=== PATIENT | male | born 1940 | race Native Hawaiian/Other Pacific Islander ===

== ENCOUNTER 2018-10-10 17:35 | Inpatient (IN) | payer MEDICARE ==
[2018-10-07 06:29] VITALS: BMI 23.6
--- NOTE | 2018-10-11 19:12 | CP.PCM.HP ---
History of Present Illness - History of Present Illness History of Present Illness: 77 year old [place] male with PMHx of Hypertension, Type 2 DM, Hyperlipidemia, Hx of Ischemic CVA, Hx of Hemorrhagic CVA was transferred from [facility] for admission to acute rehab today for physical therapy . All medical records were reviewed . Patient presented to [facility] ER 10/07 with 1 day history of slurred speech ,AMS and was diagnosed with acute left STUD SETTER ischemic stroke.No t-PA was given . Neurology was consulted and patient was initially started on ASa ,Plavix , statin and lovenox prophylactically During hospitalization he remained lethargic so Amantadine was started and EEG performed to rule out seizure disorder. PT was consulted and recommended physical therapy. Repeat CT without contrast today 10/11 reported as : Complex hemorrhagic conversion of involving left STUD SETTER infarct with mass-effect now facing posterior body and atrium of the left lateral ventricle and affectively trapping the left temporal horn though no hydrocephalus appreciated at this time. Minimal rightward midline shift with left cerebral peduncle encroached and basilar cisterns otherwise widely patent. 2. Small left frontal lobar infarct Patient now transferred to acute rehab. As per he is more awake and alert today , answering questions more fast but still has difficulty finding words.Has double vision . Patient denies any chest pain , SOB, abdominal pain , urinary sx or changes in bowel movements. Allergies ; NKDA PMH: HTN, DM , Dyslipidemia, CVA Medications: See med rec Surgery History; Denies Family history : Denies Social history : Denied tobacco, alcohol, or illicit drug use, , lives with ROS ; 10 point review of system negative except above Present on Admission - Present on Admission Any Indicators Present on Admission: No Review of Systems - Review of Systems All systems: reviewed and no additional remarkable complaints except Past Patient History - Infectious Disease Hx of Infectious Diseases: None - Tetanus Immunizations Tetanus Immunization: Unknown - Past Medical History & Family History Past Medical History?: Yes Past Family History: Reviewed and not pertinent - Past Social History Smoking Status: Never Smoked Chewing Tobacco Use: No Cigar Use: No Alcohol: None Home Situation {Lives}: With Family Domestic Violence: Negative - CARDIAC Hx Hypertension: Yes - PULMONARY Hx Respiratory Disorders: No - NEUROLOGICAL HX Cerebrovascular Accident: Yes (Hx of stroke 2 yrs ago) - HEENT Hx HEENT Problems: Yes Other/Comment: wear reading eyeglasses - RENAL Hx Chronic Kidney Disease: No - ENDOCRINE/METABOLIC Hx Diabetes Mellitus Type 2: Yes - HEMATOLOGICAL/ONCOLOGICAL Hx Blood Disorders: No - INTEGUMENTARY Hx Dermatological Problems: No - MUSCULOSKELETAL/RHEUMATOLOGICAL Hx Falls: No - GASTROINTESTINAL Hx Gastrointestinal Disorders: No - GENITOURINARY/GYNECOLOGICAL Hx Genitourinary Disorders: No - PSYCHIATRIC Hx Substance Use: No - SURGICAL HISTORY Hx Surgeries: No - ANESTHESIA Hx Anesthesia: No Meds Allergies/Adverse Reactions: Allergies Allergy/AdvReac Type Severity Reaction Status Date / Time No Known Allergies Allergy Verified 10/07/18 06:40 Physical Exam - Constitutional Appears: Non-toxic, No Acute Distress - Head Exam Head Exam: ATRAUMATIC, NORMOCEPHALIC - Eye Exam Eye Exam: EOMI, PERRL Pupil Exam: NORMAL ACCOMODATION - ENT Exam ENT Exam: Mucous Membranes Moist, Normal Exam - Neck Exam Neck exam: Positive for: Full Rom, Normal Inspection - Respiratory Exam Respiratory Exam: Clear to Auscultation Bilateral, NORMAL BREATHING PATTERN. absent: Rales, Rhonchi, Wheezes - Cardiovascular Exam Cardiovascular Exam: Irregular Rhythm. absent: JVD - GI/Abdominal Exam GI & Abdominal Exam: Normal Bowel Sounds, Soft. absent: Rebound, Rigid, Tenderness - Rectal Exam Rectal Exam: Deferred - Extremities Exam Extremities exam: Positive for: normal capillary refill, normal inspection, pedal pulses present. Negative for: calf tenderness, joint swelling, pedal edema - Back Exam Back exam: NORMAL INSPECTION - Neurological Exam Neurological exam: Alert Additional comments: oriented to self , knows his birthdate has difficulty finding words has double vision Power is intact all 4 extremities - Psychiatric Exam Psychiatric exam: Normal Affect - Skin Skin Exam: Dry, Warm Assessment & Plan - Assessment and Plan (Free Text) Assessment: 77 year old [place] male with PMHx of Hypertension, Type 2 DM, Hyperlipidemia, Hx of Ischemic CVA, Hx of Hemorrhagic CVA was transferred from [facility] for admission to acute rehab today for physical therapy .He was diagnosed initially with left STUD SETTER territory ischemic stroke . Repeat CT head today showed complex hemorrhagic conversion with mass effect and minimal rightward midline shift and left cerebelar peduncle enchroached Patient at present is awake and alert answering questions and following commands , has difficulty finding words. As per today is the best he has been since the stroke happened 1. Acute Left STUD SETTER ischemic stroke with complex hemorrhagic conversion and mass effect Discussed with Dr. Meyer. Will admit patient to acute rehab for therapy Admit to acute rehab Hold ASA, lovenox Repeat CT head without contrast in AM Neurology consult with Dr. Meyer physiatry consult resume Statin and BP meds on Amantadine 2. HTN resume Metoprolol,Losartan , HCTZ 3. DM type II Accuchecks, insulin coverage , diabetic diet Resumed Glipizide , Pioglitazone 4. Gout on Allopurinol 5. DVt prophylaxis SCD
[2018-10-11] MEDS: Insulin Lispro (humaLOG) 100 Units/ml Inj SC SCH (22:30)
[2018-10-12] MEDS: Insulin Lispro (humaLOG) 100 Units/ml Inj SC SCH ×4 (06:53→21:08)
[2018-10-12 08:37] LABS: BASO # 0.1 K/uL (0.0-0.2); BASO % 0.9 % (0.0-2.0); EOS # 0.1 K/uL (0.0-0.7); EOS % 1.3 % (0.0-4.0); HEMOGLOBIN 14.8 g/dL (12.0-18.0); LYMPH # 1.2 K/uL (1.0-4.3); LYMPH % 15.6 % (20.0-40.0); MEAN CELL VOLUME 90.9 fl (80.0-94.0); MEAN CORPUSCULAR HEMOGLOBIN 30.6 pg (27.0-31.0); MEAN CORPUSCULAR HGB CONC 33.7 g/dL (33.0-37.0); MONO # 0.9 K/uL (0.0-0.8); MONO % 11.9 % (0.0-10.0); NEUT # 5.6 K/uL (1.8-7.0); NEUT % 70.3 % (50.0-75.0); NRBC % 0.2 % (0.0-0.0); RBC 4.84 Mil/uL (4.40-5.90); RED CELL DISTRIBUTION WIDTH 13.9 % (11.5-14.5); WHITE BLOOD COUNT 7.9 K/uL (4.8-10.8)
[2018-10-12] MEDS: Pantoprazole 40 mg EC Tab PO SCH (08:50)
[2018-10-12] MEDS: GlipiZIDE 10 mg SR Tab PO SCH (08:51)
[2018-10-12] MEDS ORDERED: Metoprolol Succinate 25 mg XL Tab PO SCH (09:00)
[2018-10-12] MEDS ORDERED: Metoprolol Succinate 50 mg XL Tab PO SCH (09:00)
[2018-10-12 09:05] LABS: BLOOD UREA NITROGEN 23 mg/dl (9-20); CALCIUM 8.6 mg/dL (8.4-10.2); GFR NON-AFRICAN AMERICAN 54
--- NOTE | 2018-10-12 09:17 | CT ---
Date of service: 10/12/2018 PROCEDURE: CT HEAD WITHOUT CONTRAST. HISTORY: Left WRAPAROUND FACILITATOR stroke with hemorrhagic conversion COMPARISON: None available. TECHNIQUE: Axial computed tomography images were obtained through the head/brain without intravenous contrast. Radiation dose: Total exam DLP = 1059.53 mGy-cm. This CT exam was performed using one or more of the following dose reduction techniques: Automated exposure control, adjustment of the mA and/or kV according to patient size, and/or use of iterative reconstruction technique. FINDINGS: HEMORRHAGE: No intracranial hemorrhage. BRAIN: Limited hemorrhagic conversion is reiterated at the left WRAPAROUND FACILITATOR infarct with no increase in hemorrhagic component is appreciated. Related local edema persists, encroaching the left cerebral peduncle and effacing local sulci as well as the body and atrium of the left lateral ventricle. Left frontal horn remains small in volume with no hydrocephalus appreciated throughout. A minimal rightward midline shift of 2 mm is reiterated. Small lobar infarct at the left frontal lobe is reiterated as well as an even smaller infarct in the right frontal lobe anteriorly. Diffuse cerebral atrophy chronic microangiopathy are reiterated. Posterior fossa contents are stable and unremarkable. VENTRICLES: Unremarkable. No hydrocephalus. CALVARIUM: Unremarkable. PARANASAL SINUSES: Unremarkable as visualized. No significant inflammatory changes. MASTOID AIR CELLS: Unremarkable as visualized. No inflammatory changes. OTHER FINDINGS: None. IMPRESSION: Stable hemorrhagic conversion of left WRAPAROUND FACILITATOR infarct with local and minimal generalized mass effect stable. No interval hydrocephalus or new hemorrhage. There is been no expansion of hemorrhagic conversion beyond prior distribution. Continued clinical and CT visualized is recommended. Stable small bifrontal chronic infarcts as well as reiterated age related neuro degenerative changes.
[2018-10-12] MEDS ORDERED: Potassium Chloride 10 mEq ER Tab PO ONE (10:00)
--- NOTE | 2018-10-12 10:39 | CP.PCM.CON ---
History of Present Illness - History of Present Illness History of Present Illness: 77 year old male admitted for acute rehab with diagnosis of CVA with pmh of HTN, DM, Hyperlipidemia Review of Systems - EENT Eyes: Other Visual Disturbances - Musculoskeletal Musculoskeletal: Muscle Weakness Past Patient History - Infectious Disease Hx of Infectious Diseases: None - Tetanus Immunizations Tetanus Immunization: Unknown - Past Medical History & Family History Past Medical History?: Yes Past Family History: Reviewed and not pertinent - Past Social History Smoking Status: Never Smoked Chewing Tobacco Use: No Cigar Use: No Alcohol: None Home Situation {Lives}: With Family Domestic Violence: Negative - CARDIAC Hx Hypertension: Yes - PULMONARY Hx Respiratory Disorders: No - NEUROLOGICAL HX Cerebrovascular Accident: Yes (Hx of stroke 2 yrs ago) - HEENT Hx HEENT Problems: Yes Other/Comment: wear reading eyeglasses - RENAL Hx Chronic Kidney Disease: No - ENDOCRINE/METABOLIC Hx Diabetes Mellitus Type 2: Yes - HEMATOLOGICAL/ONCOLOGICAL Hx Blood Disorders: No - INTEGUMENTARY Hx Dermatological Problems: No - MUSCULOSKELETAL/RHEUMATOLOGICAL Hx Falls: No - GASTROINTESTINAL Hx Gastrointestinal Disorders: No - GENITOURINARY/GYNECOLOGICAL Hx Genitourinary Disorders: No - PSYCHIATRIC Hx Substance Use: No - SURGICAL HISTORY Hx Surgeries: No - ANESTHESIA Hx Anesthesia: No Meds Allergies/Adverse Reactions: Allergies Allergy/AdvReac Type Severity Reaction Status Date / Time No Known Allergies Allergy Verified 10/11/18 20:12 - Medications Medications: Current Medications Acetaminophen (Tylenol 325mg Tab) 650 mg PO Q6 PRN PRN Reason: Fever >100.4 F Allopurinol (Zyloprim) 100 mg PO DAILY [facility] Last Admin: 10/12/18 08:51 Dose: 100 mg Atorvastatin Calcium (Lipitor) 10 mg PO [facility] Last Admin: 10/11/18 22:30 Dose: 10 mg Docusate Sodium (Colace) 100 mg PO BID [facility] Last Admin: 10/12/18 08:49 Dose: 100 mg Glipizide (Glucotrol Xl) 10 mg PO DAILY [facility] Last Admin: 10/12/18 08:51 Dose: 10 mg Hydrochlorothiazide (Microzide) 12.5 mg PO DAILY [facility] Last Admin: 10/12/18 08:50 Dose: 12.5 mg Insulin Human Lispro (Humalog) 0 units SC [facility]; Protocol Last Admin: 10/12/18 06:53 Dose: Not Given Losartan Potassium (Cozaar) 25 mg PO DAILY [facility] Last Admin: 10/12/18 09:12 Dose: 25 mg Metoprolol Succinate (Toprol Xl) 50 mg PO DAILY [facility] Last Admin: 10/12/18 10:28 Dose: 50 mg Pantoprazole Sodium (Protonix Ec Tab) 40 mg PO DAILY [facility] Last Admin: 10/12/18 08:50 Dose: 40 mg Pioglitazone HCl (Actos) 15 mg PO DAILY [facility] Last Admin: 10/12/18 08:51 Dose: 15 mg Physical Exam - Constitutional Appears: Well - Head Exam Head Exam: ATRAUMATIC, NORMAL INSPECTION, NORMOCEPHALIC - Eye Exam Eye Exam: Normal appearance - ENT Exam ENT Exam: Mucous Membranes Moist - Neck Exam Neck exam: Positive for: Normal Inspection - Respiratory Exam Respiratory Exam: Clear to Auscultation Bilateral, NORMAL BREATHING PATTERN - Cardiovascular Exam Cardiovascular Exam: REGULAR RHYTHM - GI/Abdominal Exam GI & Abdominal Exam: Normal Bowel Sounds - Rectal Exam Rectal Exam: NORMAL INSPECTION - Exam Exam: NORMAL INSPECTION - Extremities Exam Extremities exam: Positive for: normal inspection - Back Exam Back exam: NORMAL INSPECTION Additional comments: muscle weakness - Neurological Exam Neurological exam: Alert - Skin Skin Exam: Normal Color Results - Vital Signs Recent Vital Signs: Last Vital Signs Temp 97.7 F 10/12/18 07:30 Pulse 70 10/12/18 10:28 Resp 18 10/12/18 07:30 BP 143/74 10/12/18 10:28 Pulse Ox 98 10/12/18 07:30 - Labs Result Diagrams: 10/12/18 06:20 10/12/18 06:20 Labs: Laboratory Results - last 24 hr 10/11/18 10/12/18 10/12/18 22:24 05:53 06:20 WBC 7.9 RBC 4.84 Hgb 14.8 Hct 44.0 MCV 90.9 MCH 30.6 MCHC 33.7 RDW 13.9 Plt Count 235 MPV 8.0 Neut % (Auto) 70.3 Lymph % (Auto) 15.6 L Harlan % (Auto) 11.9 H Eos % (Auto) 1.3 Baso % (Auto) 0.9 Neut # (Auto) 5.6 Lymph # (Auto) 1.2 Harlan # (Auto) 0.9 H Eos # (Auto) 0.1 Baso # (Auto) 0.1 Sodium Potassium Chloride Carbon Dioxide Anion Gap BUN Creatinine Est GFR ( Amer) Est GFR (Non-Af Amer) POC Glucose (mg/dL) 88 97 Random Glucose Calcium 10/12/18 06:20 WBC RBC Hgb Hct MCV MCH MCHC RDW Plt Count MPV Neut % (Auto) Lymph % (Auto) Harlan % (Auto) Eos % (Auto) Baso % (Auto) Neut # (Auto) Lymph # (Auto) Harlan # (Auto) Eos # (Auto) Baso # (Auto) Sodium 139 Potassium 3.4 L Chloride 102 Carbon Dioxide 26 Anion Gap 14 BUN 23 H Creatinine 1.3 Est GFR ( Amer) > 60 Est GFR (Non-Af Amer) 54 POC Glucose (mg/dL) Random Glucose 120 H Calcium 8.6 Assessment & Plan (1) CVA (cerebral vascular accident) Assessment and Plan: plan for physical, occupational, rec and speech therapy for cognitive eval. Dr Meyer to follow up with patient.For overall plan of care. Covering for Dr Rodriguez Status: Acute
--- NOTE | 2018-10-12 10:44 | PCM.OPOC ---
Physiatry Overall Plan of Care - Overall Plan of Care Estimated Length of Stay in Weeks: 2 Rehab Impairment: Mobility, Gait, Cognition, Balance, Coordination Etiologic Diagnosis: Cerebrovascular Accident Rehab/Medical Prognosis: Fair - Anticipated Interventions Physical Therapy:: Yes Occupational Therapy:: Yes Speech Therapy:: Yes Recreational Therapy:: Yes - Therapy Goals Bed Mobility: Independent Ambulation: Supervision Functional Positional Changes:: Independent - Discharge Plan Identification of Barriers to Discharge: Cognition Discharge Destination: Home
--- NOTE | 2018-10-12 15:13 | CP.PCM.CON ---
History of Present Illness - History of Present Illness History of Present Illness: Neurology Consultation Note; Mr. Richard is a 77-year-old man, who was referred to me by Dr. Watts, and whom I know from the inpatient side at [facility] after he was recently admitted for an ischemic stroke with some hemorrhagic conversion. He has a history of atrial fibrillation, but was not previously on anticoagulation. He has had three strokes in total. The previous strokes involved the left frontal (with hemorrhagic conversion), right parietal and now the left occipital/parietal lobe infarct. He has some neglect and right homonomous hemianopsia. He was previously on aspirin and plavix for secondary stroke pr evention, but after hemorrhagic conversion they were stopped. A repeat non- contrast CT scan of the head was done today and was stable without increasing edema. Clinically, the patient is improving. Review of Systems - Constitutional Constitutional: As Per HPI - EENT Eyes: absent: As Per HPI, Blind Spots, Blurred Vision, Change in Vision, Decreased Night Vision, Diplopia, Discharge, Dry Eye, Exophthalmos, Floaters, Irritation, Itchy Eyes, Loss of Peripheral Vision, Pain, Photophobia, Requires Corrective Lenses, Sees Flashes, Spots in Vision, Tunnel Vision, Other Visual Disturbances, Loss of Vision, Other Ears: absent: As Per HPI, Decreased Hearing, Ear Discharge, Ear Pain, Tinnitus, Abnormal Hearing, Disequilibrium, Dizziness, Other Nose/Mouth/Throat: absent: As Per HPI, Epistaxis, Nasal Congestion, Nasal Discharge, Nasal Obstruction, Nasal Trauma, Nose Pain, Post Nasal Drip, Sinus Pain, Sinus Pressure, Bleeding Gums, Change in Voice, Dental Pain, Dry Mouth, Dysphagia, Halitosis, Hoarsness, Lip Swelling, Mouth Lesions, Mouth Pain, Odynophagia, Sore Throat, Throat Swelling, Tongue Swelling, Facial Pain, Neck Pain, Neck Mass, Other - Cardiovascular Cardiovascular: absent: As Per HPI, Acrocyanosis, Chest Pain, Chest Pain at Rest, Chest Pain with Activity, Claudication, Diaphoresis, Dyspnea, Dyspnea on Exertion, Edema, Irregular Heart Rhythm, Pain Radiating to Arm/Neck/Jaw, Leg Edema, Leg Ulcers, Lightheadedness, Orthopnea, Palpitations, Paroxysmal Nocturnal Dyspnea, Pedal Edema, Radiating Pain, Rapid Heart Rate, Slow Heart Rate, Syncope, Other - Respiratory Respiratory: absent: As Per HPI, Cough, Dyspnea, Hemoptysis, Dyspnea on Exertion, Wheezing, Snoring, Stridor, Pain on Inspiration, Chest Congestion, Excessive Mucous Production, Change in Mucous Color, Pain with Coughing, Other - Gastrointestinal Gastrointestinal: absent: As Per HPI, Abdominal Pain, Belching, Bloating, Change in Bowel Habits, Change in Stool Character, Coffee Ground Emesis, Constipation, Cramping, Diarrhea, Dyspepsia, Dysphagia, Early Satiety, Excessive Flatus, Fecal Incontinence, Heartburn, Hematemesis, Hematochezia, Loose Stools, Melena, Nausea, Odynophagia, Temesmus, Vomiting, Other - Genitourinary Genitourinary: absent: As Per HPI, Change in Urinary Stream, Difficulty Urinati ng, Dysuria, Flank Pain, Hematuria, Pyuria, Nocturia, Urinary Incontinence, Urinary Frequency, Urinary Hesitance, Urinary Urgency, Voiding Freq/Small Amts, Freq UTI, Hx Renal/Bladder Calculi, Hx /Renal Surgery, Bladder Distension, Other - Musculoskeletal Musculoskeletal: absent: As Per HPI, Abnormal Gait, Arthralgias, Atrophy, Back Pain, Deformity, Joint Swelling, Limited Range of Motion, Loss of Height, Muscle Cramps, Muscle Weakness, Myalgias, Neck Pain, Numbness, Radiating Pain into Limb, Stiffness, Tingling, Other - Integumentary Integumentary: absent: As Per HPI, Acne, Alopecia, Bleeding Lesions, Change in H air, Change in Nails, Change in Pigmentation, Changing Lesions, Dry Skin, Erythema, Furuncle, Hirsutism, Lesions, New Lesions, Non-Healing Lesions, Photosensitivity, Pruritus, Rash, Skin Pain, Skin Ulcer, Sores, Striae, Swelling, Unusual Bruising, Wounds, Jaundice, Other - Neurological Neurological: absent: As Per HPI, Abnormal Gait, Abnormal Hearing, Abnormal Movements, Abnormal Speech, Behavioral Changes, Burning Sensations, Confusion, Convulsions, Disequilibrium, Dizziness, Numbness, Focal Weakness, Frequent Falls, Headaches, Lack of Coordination, Loss of Vision, Memory Loss, Paresthesias, Radicular Pain, Restless Legs, Sensory Deficit, Syncope, Tingling, Tremor, Vertigo, Weakness, Other Visual Disturbances, Other - Psychiatric Psychiatric: absent: As Per HPI, Abnormal Sleep Pattern, Anhedonia, Anxiety, Auditory Hallucinations, Behavioral Changes, Change in Appetite, Change in Libido, Confusion, Depression, Difficulty Concentrating, Hallucinations, Homicidal Ideation, Hopelessness, Irritability, Memory Loss, Mood Swings, Panic Attacks, Paranoia, Suicidal Ideation, Visual Hallucinations, Tactile Halluci nations, Other - Endocrine Endocrine: absent: As Per HPI, Change in Body Appearance, Change in Libido, Cold Intolorance, Deepening of Voice, Excessive Sweating, Fatigue, Flushing, Heat Intolorance, Increase in Ring/Shoe/Hat Size, Palpitations, Polydipsia, Polyp hagia, Polyuria, Other - Hematologic/Lymphatic Hematologic: absent: As Per HPI, Easy Bleeding, Easy Bruising, Lymphadenopathy, Other Past Patient History - Infectious Disease Hx of Infectious Diseases: None - Tetanus Immunizations Tetanus Immunization: Unknown - Past Medical History & Family History Past Medical History?: Yes Past Family History: Reviewed and not pertinent - Past Social History Smoking Status: Never Smoked Chewing Tobacco Use: No Cigar Use: No Alcohol: None Home Situation {Lives}: With Family Domestic Violence: Negative - CARDIAC Hx Hypertension: Yes - PULMONARY Hx Respiratory Disorders: No - NEUROLOGICAL HX Cerebrovascular Accident: Yes (Hx of stroke 2 yrs ago) - HEENT Hx HEENT Problems: Yes Other/Comment: wear reading eyeglasses - RENAL Hx Chronic Kidney Disease: No - ENDOCRINE/METABOLIC Hx Diabetes Mellitus Type 2: Yes - HEMATOLOGICAL/ONCOLOGICAL Hx Blood Disorders: No - INTEGUMENTARY Hx Dermatological Problems: No - MUSCULOSKELETAL/RHEUMATOLOGICAL Hx Falls: No - GASTROINTESTINAL Hx Gastrointestinal Disorders: No - GENITOURINARY/GYNECOLOGICAL Hx Genitourinary Disorders: No - PSYCHIATRIC Hx Substance Use: No - SURGICAL HISTORY Hx Surgeries: No - ANESTHESIA Hx Anesthesia: No Meds Allergies/Adverse Reactions: Allergies Allergy/AdvReac Type Severity Reaction Status Date / Time No Known Allergies Allergy Verified 10/11/18 20:12 - Medications Medications: Current Medications Acetaminophen (Tylenol 325mg Tab) 650 mg PO Q6 PRN PRN Reason: Fever >100.4 F Allopurinol (Zyloprim) 100 mg PO DAILY [facility] Last Admin: 10/12/18 08:51 Dose: 100 mg Atorvastatin Calcium (Lipitor) 10 mg PO HS [facility] Last Admin: 10/11/18 22:30 Dose: 10 mg Docusate Sodium (Colace) 100 mg PO BID [facility] Last Admin: 10/12/18 08:49 Dose: 100 mg Glipizide (Glucotrol Xl) 10 mg PO DAILY [facility] Last Admin: 10/12/18 08:51 Dose: 10 mg Hydrochlorothiazide (Microzide) 12.5 mg PO DAILY [facility] Last Admin: 10/12/18 08:50 Dose: 12.5 mg Insulin Human Lispro (Humalog) 0 units SC [facility]; Protocol Last Admin: 10/12/18 12:01 Dose: 1 unit Losartan Potassium (Cozaar) 25 mg PO DAILY [facility] Metoprolol Succinate (Toprol Xl) 50 mg PO DAILY [facility] Pantoprazole Sodium (Protonix Ec Tab) 40 mg PO DAILY [facility] Last Admin: 10/12/18 08:50 Dose: 40 mg Pioglitazone HCl (Actos) 15 mg PO DAILY [facility] Last Admin: 10/12/18 08:51 Dose: 15 mg Physical Exam - Constitutional Appears: Well - Head Exam Head Exam: ATRAUMATIC, NORMAL INSPECTION, NORMOCEPHALIC - Eye Exam Eye Exam: EOMI, Normal appearance, PERRL Pupil Exam: NORMAL ACCOMODATION, PERRL - ENT Exam ENT Exam: Mucous Membranes Moist, Normal Exam - Neck Exam Neck exam: Positive for: Normal Inspection - Respiratory Exam Respiratory Exam: Clear to Auscultation Bilateral, NORMAL BREATHING PATTERN - Cardiovascular Exam Cardiovascular Exam: REGULAR RHYTHM, +S1, +S2 - GI/Abdominal Exam GI & Abdominal Exam: Normal Bowel Sounds, Soft. absent: Tenderness - Extremities Exam Extremities exam: Positive for: normal inspection - Back Exam Back exam: NORMAL INSPECTION - Neurological Exam Neurological exam: Abnormal Gait, Altered, CN II-XII Intact, Reflexes Normal Additional comments: Right homonomous hemianopsia and neglect. Otherwise strength is symmetrical and sensation is intact. Reflexes are brisk on the right side with upgoing plantar response. NIHSS=4 - Psychiatric Exam Psychiatric exam: Normal Affect, Normal Mood - Skin Skin Exam: Dry, Intact, Normal Color, Warm Results - Vital Signs Recent Vital Signs: Last Vital Signs Temp 97.7 F 10/12/18 07:30 Pulse 60 10/12/18 13:00 Resp 18 10/12/18 07:30 BP 159/77 H 10/12/18 13:00 Pulse Ox 98 10/12/18 07:30 - Labs Result Diagrams: 10/12/18 06:20 10/12/18 06:20 Labs: Laboratory Results - last 24 hr 10/11/18 10/12/18 10/12/18 22:24 05:53 06:20 WBC 7.9 RBC 4.84 Hgb 14.8 Hct 44.0 MCV 90.9 MCH 30.6 MCHC 33.7 RDW 13.9 Plt Count 235 MPV 8.0 Neut % (Auto) 70.3 Lymph % (Auto) 15.6 L Parke % (Auto) 11.9 H Eos % (Auto) 1.3 Baso % (Auto) 0.9 Neut # (Auto) 5.6 Lymph # (Auto) 1.2 Parke # (Auto) 0.9 H Eos # (Auto) 0.1 Baso # (Auto) 0.1 Sodium Potassium Chloride Carbon Dioxide Anion Gap BUN Creatinine Est GFR ( Amer) Est GFR (Non-Af Amer) POC Glucose (mg/dL) 88 97 Random Glucose Calcium 10/12/18 10/12/18 06:20 11:36 WBC RBC Hgb Hct MCV MCH MCHC RDW Plt Count MPV Neut % (Auto) Lymph % (Auto) Parke % (Auto) Eos % (Auto) Baso % (Auto) Neut # (Auto) Lymph # (Auto) Parke # (Auto) Eos # (Auto) Baso # (Auto) Sodium 139 Potassium 3.4 L Chloride 102 Carbon Dioxide 26 Anion Gap 14 BUN 23 H Creatinine 1.3 Est GFR ( Amer) > 60 Est GFR (Non-Af Amer) 54 POC Glucose (mg/dL) 180 H Random Glucose 120 H Calcium 8.6 Assessment & Plan (1) CVA (cerebral vascular accident) Assessment and Plan: Since the scan is stable, and the patient is clinically improving, we can resume aspirin for secondary stroke prevention in the setting of multiple previous ischemic strokes and atrial fibrillation. Since the patient is bedbound, DVT prophylaxis is also recommended with either SCD or Lovenox. Will continue amantadine at 100 mg BID to improve level of consciousness and alertness. Neurology will follow along with the rehab team. Thank you. Status: Acute Priority: High
[2018-10-13] MEDS: Insulin Lispro (humaLOG) 100 Units/ml Inj SC SCH ×4 (06:30→21:02)
[2018-10-13] MEDS: GlipiZIDE 10 mg SR Tab PO SCH (08:20)
[2018-10-13] MEDS: Pantoprazole 40 mg EC Tab PO SCH (08:20)
[2018-10-13] MEDS: Metoprolol Succinate 50 mg XL Tab PO SCH (08:21)
--- NOTE | 2018-10-13 11:47 | CP.PCM.PN ---
Subjective - Date & Time of Evaluation Date of Evaluation: 10/13/18 Time of Evaluation: 10:30 - Subjective Subjective: Patient seen and examined bedside . Hemodynamically stable. Alert and awake , answering simple questions and following commands. Participating with PT Objective - Vital Signs/Intake and Output Vital Signs (last 24 hours): Temp Pulse Resp BP Pulse Ox 97.7 F 71 20 124/72 96 10/13/18 08:31 10/13/18 08:31 10/13/18 08:31 10/13/18 08:31 10/13/18 08:31 Intake and Output: 10/13/18 10/13/18 06:59 18:59 Intake Total 240 Output Total 400 Balance -160 - Medications Medications: Current Medications Acetaminophen (Tylenol 325mg Tab) 650 mg PO Q6 PRN PRN Reason: Fever >100.4 F Allopurinol (Zyloprim) 100 mg PO DAILY [facility] Last Admin: 10/13/18 08:20 Dose: 100 mg Amantadine HCl (Amantadine 100 Mg Cap) 100 mg PO BID [facility] Last Admin: 10/13/18 08:18 Dose: 100 mg Aspirin (Aspirin Chewable) 81 mg PO DAILY [facility] Last Admin: 10/13/18 08:18 Dose: 81 mg Atorvastatin Calcium (Lipitor) 10 mg PO HS [facility] Last Admin: 10/12/18 21:17 Dose: 10 mg Docusate Sodium (Colace) 100 mg PO BID [facility] Last Admin: 10/13/18 08:19 Dose: 100 mg Glipizide (Glucotrol Xl) 10 mg PO DAILY [facility] Last Admin: 10/13/18 08:20 Dose: 10 mg Hydrochlorothiazide (Microzide) 12.5 mg PO DAILY [facility] Last Admin: 10/13/18 08:20 Dose: 12.5 mg Insulin Human Lispro (Humalog) 0 units SC [facility]; Protocol Last Admin: 10/13/18 06:30 Dose: Not Given Losartan Potassium (Cozaar) 25 mg PO DAILY [facility] Last Admin: 10/13/18 08:19 Dose: 25 mg Metoprolol Succinate (Toprol Xl) 50 mg PO DAILY [facility] Last Admin: 10/13/18 08:21 Dose: 50 mg Pantoprazole Sodium (Protonix Ec Tab) 40 mg PO DAILY [facility] Last Admin: 10/13/18 08:20 Dose: 40 mg Pioglitazone HCl (Actos) 15 mg PO DAILY [facility] Last Admin: 10/13/18 08:18 Dose: 15 mg - Labs Labs: 10/12/18 06:20 10/12/18 06:20 - Constitutional Appears: Non-toxic, No Acute Distress - Head Exam Head Exam: ATRAUMATIC, NORMOCEPHALIC - Eye Exam Eye Exam: EOMI, PERRL Pupil Exam: NORMAL ACCOMODATION - ENT Exam ENT Exam: Mucous Membranes Moist, Normal Exam - Neck Exam Neck Exam: Normal Inspection - Respiratory Exam Respiratory Exam: Clear to Ausculation Bilateral, NORMAL BREATHING PATTERN. absent: Rales, Rhonchi, Wheezes - Cardiovascular Exam Cardiovascular Exam: Irregular Rhythm, +S1, +S2. absent: JVD - GI/Abdominal Exam GI & Abdominal Exam: Soft, Normal Bowel Sounds. absent: Distended, Guarding, Tenderness, Rebound - Rectal Exam Rectal Exam: Deferred - Extremities Exam Extremities Exam: Full ROM, Normal Capillary Refill, Normal Inspection. absent: Pedal Edema - Back Exam Back Exam: NORMAL INSPECTION - Neurological Exam Neurological Exam: Alert, Awake Neuro motor strength exam: Left Upper Extremity: 5, Right Upper Extremity: 5, Left Lower Extremity: 5, Right Lower Extremity: 5 Additional comments: blurry vision word finding difficulty - Psychiatric Exam Psychiatric exam: Flat Affect - Skin Skin Exam: Dry, Normal Color, Warm Assessment and Plan - Assessment and Plan (Free Text) Assessment: 77 year old Q[place] male with PMHx of Hypertension, Type 2 DM, Hyperlipidemia, Hx of Ischemic CVA, Hx of Hemorrhagic CVA was transferred from [facility] for admission to acute rehab today for physical therapy .He was diagnosed initially with left SITE LEADER territory ischemic stroke . CT 10/11 showed complex hemorrhagic conversion with mass effect and minimal rightward midline shift and left cerebelar peduncle enchroached . He was admitted in acute rehab for PT, ASA and lovenox discontinued and neuro consulted Repeat CT head showed stable hemorrhagic conversion 1. Acute Left SITE LEADER ischemic stroke with complex hemorrhagic conversion and mass effect Repeat CT head showed stable hemorrhagic conversion Neurology consult appreciated .Since patient is high risk for recurrent stroke started back on ASA Continue BP control Continue PT / OT/ speech therapy Continue Sttain and Amantadine 2.Afib rate controlled continue beta blockers 3. HTN controlled on Metoprolol,Losartan , HCTZ 4. DM type II controlled continue Accuchecks, insulin coverage , diabetic diet on Glipizide , Pioglitazone 5. Gout on Allopurinol stable 6. DVt prophylaxis SCD
[2018-10-14] MEDS: Insulin Lispro (humaLOG) 100 Units/ml Inj SC SCH ×4 (06:46→21:29)
[2018-10-14] MEDS: Metoprolol Succinate 50 mg XL Tab PO SCH (08:54)
[2018-10-14] MEDS: GlipiZIDE 10 mg SR Tab PO SCH (08:54)
[2018-10-14] MEDS: Pantoprazole 40 mg EC Tab PO SCH (08:54)
--- NOTE | 2018-10-14 11:46 | PCM.PSYTMC ---
Acute Rehab Team Conference - - Vital Signs: Vital Signs (Last 8 Hours): Vital Signs 10/14/18 10/14/18 10/14/18 07:31 07:39 08:48 Temperature 98.1 F 98.1 F Pulse Rate 69 69 63 Respiratory 20 20 Rate Blood Pressure 132/73 132/73 O2 Sat by Pulse 97 96 Oximetry 10/14/18 10/14/18 08:53 08:54 Temperature Pulse Rate 69 69 Respiratory Rate Blood Pressure 132/73 132/73 O2 Sat by Pulse Oximetry Pain: 0 - Precautions: Precautions: Fall Prevention - Medications/Other Issues: Comment: Patient is disoriented x3 intermittently and forgetful. Patient is sleepy all day. He complains of blurry vision. Patient requires constant cueing. - Consults: Comment: Dr. Rodriguez - physiatry. Dr. Meyer - neurology - Skin: Incision Site: N/A - Toileting: Toileting: Moderate Assistance - Bladder Management: Bladder Pattern: Normal Voiding Method: Urinal Bladder Management: Moderate Assistance - Transfers: Transfers: Moderate Assistance - ADL's: ADL's: Moderate Assistance - Pain Management: Other Intervention:: N/A - Patient/Family Teaching: Other Intervention:: Patient and his was given education about safety and fall precautions. Also s/s of stroke. Reinforcements needed. - Goals/Time Frame: Comment: Until next team conference or discharge date. - Provider: Registered Nurse:: Sandi Casas Physical Therapy - Bed Mobility Bed Mobility: Minimal Assistance - Transfers Wheelchair to Mat: Moderate Assistance Sit to Stand: Moderate Assistance - Ambulation Level of Assistance: Moderate Assistance Distance (ft.): 55 Assistive Devices: Rolling Walker - Stair Negotiation Stairs: Level of Assistance: Moderate Assistance Number of Stairs: 1 Handrails: Bilateral - Standing Balance Static Stand: Minimal Assistance - Pain Pain (assessed during therapy session): 0 - Insight/Carryover Insight/Carryover: Good - Patient/Family Education Comment: CVA recovery, safety, POC - Assessment/Plan Assessment: Mr. Richard presents with impaired BLE strength, sitting/standing balance, and endurance as well as noted R inattention resulting in decreased (I) with functional mobility skills. Pt currently requires min A for bed mobility, mod A for transfers, mod A for ambulating with RW, mod A with stair negotiation. Pt previously mod I/I. Pt will benefit from skilled PT interventions 5-6xs/week to address deficits, reduce fall risk, and maximzie functional independence. - Goals Timeframe: 3 weeks Goals: Sit < > supine with supervision. Functional transfers with supervision using RW. Pt will ambulate 200 ft with RW and supervision - Provider Physical Therapist:: Juliet Washburn License Number:: [id number] Occupational Therapy - Arousal/Attention/Orientation Level of Consciousness: Awake, Alert, Forgetful, Disoriented, Lethargic Patient Orientation: Person Assessment Comment: -severe visual deficits--visual acuity, double vision, R inattention. -impaired cognition: memory, attention(sustained/selective), arousal level, disorientation. -impaired endurance/activity tolerance. - impaired overall strength. -impaired balance--standing/sitting levels. --impaired carryover - ADL/IADL Self Feeding: Verbal Cues, Set-up Help, Minimal Assistance, Moderate Assistance Grooming: Verbal Cues, Set-up Help, Minimal Assistance Dressing-Upper Ext: Verbal Cues, Set-up Help, Minimal Assistance Dressing-Lower Ext: Verbal Cues, Set-up Help, Moderate Assistance Comment: Bathing: TBA - Sitting Balance Static Sitting: Supervision Dynamic Sitting: Reaches across midline, Reaches out of base of support, Reaches within base of support, Minimal Assistance Comment: constant verbal cues to engage, initiate and complete - Transfers Wheelchair to Bed Transfers: Verbal Cues, Set-up Help, Moderate Assistance Toilet Transfers: Verbal Cues, Set-up Help, Moderate Assistance Comment: -initaite with hand over hand, anchoring strategies, orientation to space - Wheelchair Management Level of Assistance: Minimal Assistance Distance (ft.): 15 - Upper Extremity Status Right Upper Extremity Comment: AROM is WFLs--strength 3+/5 as evidenced by purposeful functions; unable to complete formal MMT 2' cognitive deficits, inability to consistently follow commands Left Upper Extremity Comment: AROM is WFLS, strength 3+/5 as evidenced by purposeful functions; unable to complete formal MMT 2' cognitive deficits, inability to consistentlyfollow commands - Pain Pain (assessed during therapy session): 0 - Insight/Carryover Insight/Carryover: Poor - Patient/Family Education Comment: On 10-13-18: -initiated for adls, transfers/mobility training. - pt/pt's educated on plan of care, rehab/OT goals, tx plan. -w/c & bed ala rm for safety. -feeding strategies with setup/orientation. -further training needed to increase carryover - Assessment/Plan Assessment: Pt is a 77 year Spanish male with dx: acute CVA with impaired visual acuity, + double vision, ? R hemianosia. *Precautions: cardiac, fall precautions, severe impaired visual deficits, w/c & bed alarm. Pt seen bedside and rehab treatment area OT evaluation/tx on 10-13-18. *Please refer to OT evaluation for further details. Pt presents with the following impairments: - impaired visual acuity, + double vision, impaired visual scanning towards R. -+ R inattention. -impaired standing/sitting balance. -impaired cognition: memory, attention, problem-solving/judgement, insight, impaired arousal(bouts of lethargy), impaired ability to follow commands. -impaired activity tolerance/endurance. -impaired safety awareness---which greatly impact on functional performance of self care, transfers/mobility. Pt will continue to benefit from skilled Occupational Therapy to address above impairments to maximize function in self care, transfers & mobility uisng aadaptive/compensatory strategies, +caregiver ed. Pt responds well to anchoring strategies & color contrast(foreground/background). Pt will likely need 24 hour care 2' multiple complex impairment areas compounded. *Goal: Supervision/CS & verbal cues for self care, functional transfers/mobility with assistive device prn & setup - Goals Timeframe: 8 days Comment: *FEEDING: S/setup & verbal cues. *GROOMING: S/setup seated & verbal cues. *UPPER BODY DRESSING: Supervison/setup & verbal cues. *LOWER BODY DRESSING: min assist and verbal cues. *TOILETING: min assist and verbal cues. *TRANSFERS: min assist and verbal cues<->bed, commode, chair and other surfaces. *BED MOBILITY: CS/CG and verbal cues with use of bedrails. *W/C MANAGEMENT/PROPULSION: <->50 feet with CS and verbal cues - Provider Occupational Therapist:: Sandrine Fowler License Number: [id number] Speech Therapy - Consult Information Patient on Program: Yes Medical Diagnosis: CVA Treatment Diagnosis: severe cognitive-linguistic deficits - Assessment Expressive Language Impairment: Severe Receptive Language Impairment: Moderate Comment: mod-severe Problem Solving Impairment: Severe Memory Impairment: Severe - Plan Assessment: Bandar Gutierrez presents with severe cognitive-linguistic deficits characterized by impaired orientation, immediate and short-term recall, long-term recall of personal events/family, attention, insight, problem solving, reasoning, direction following, word retrieval, and ability to answer variet of yes/no and open-ended questions. Pt's reported that pt's cognitive and communication skills were WFL prior to this CVA. It should be noted that the pt presents with visual deficits which also impacted performance and is a large barrier to learning in addition to cognitive deficits. Pt would benefit from skilled ST for improved cognition and functional independence. Plan: Continue Speech/Language Therapy Frequency: 3-5 times per week Duration: 1 week Goals/Timeframe: Please see IE completed 10/13/18 for complete goals/POC Recommendations: ST 3-5x/week for improved cognition and independence - Provider Therapist: Stacie Sauceda License Number: [id number] Recreational Therapy - Participation Participation: Participates in Individual and/or Group Sessions - Attendance Attendance: 3-5 times per week - Activities Leisure Activities: Television - Socialization Level of Socialization: Requires 1:1 guidance to respond, Minimal initiation of interaction to request basic needs, Minimal or no response - Diversional Time Diversional Time: watching television, singing - Assessment Assessment/Plan: Pt and pt's were educated about the benefits and purpose of participating in recreation therapy sessions throughout stay on unit. Pt presented with decrease initiation and decrease command following throughout modified mitchel card task. Barriers to participation are visual deficits, decrease arousal, and decrease command following. Pt will benefit from participating in recreation therapy sessions throughout stay on unit. Problems Currently Limiting Participation: decrease command following, decrease initiation, decrease arousal level, decrease initiation, decrease color and number identification and recognition, decrease recall of prior conversations, double vision, visual deficits, decrease attention to task Goals and Time Frame: Pt will be encouraged to participate in 1:1 and group recreation therapy sessions 3-5x week to improve command following, direction following, attention to task, arousal level, and recalling facts on demand by date of discharge. - Provider Therapist: Liya Okeefe Nutrition - Current Diet Current Diet/Supplement/Feedings: Moderate consistent CHO heart healthy diet - Appetite Percent Meal Consumed: 50-74% - Assessment/Goals/Time Frame Assessments/Goals/Time Frame: To follow as per nutrition protocol - Provider Provider: Crissy Tomlinson Case Management - Psychosocial Assessment Support Systems: Lesley Richard ([facility])- [phone] Psychological Interventions/Needs: Patient is alert and oriented x1 with mild confusion and memory impairment. Discharge Concerns: Patient will likely require 24 hour supervision at a minimum and is having vision impairment. Patient/Family Meeting: CM met with patient and rehab team. Intervention/Goal/Outcome: 1. Goal- 24 supervision? 2. Plan- home with [facility] vs. [facility], pending progress- known to [facility] from previous admission 3. DME needs? Patient with commode, showe chair, and wheelchair at home 4. schedule caregiver training with . 5. emotional support 6. Tentative D/C date: 10/29/18 - Discharge Plan Discharge Plan: Subacute care - Provider Provider: Gloria Guillen License Number: [id number] Rehabilitation Plan - Treatment Plan Treatment Plan: Physical Therapy, Occupational Therapy, Speech, Dietary, Patient/Family Education - Recommendation Recommendation: Physical Therapy, Occupational Therapy, Speech, Dietary, Pa tient/Family Education - Discharge Plan Discharge to: Home (OCT 29 [place])
--- NOTE | 2018-10-14 12:12 | CP.PCM.PN ---
Subjective - Date & Time of Evaluation Date of Evaluation: 10/14/18 Time of Evaluation: 08:00 - Subjective Subjective: no acute complaints at present Objective - Vital Signs/Intake and Output Vital Signs (last 24 hours): Temp Pulse Resp BP Pulse Ox 98.1 F 69 20 132/73 96 10/14/18 07:39 10/14/18 08:54 10/14/18 07:39 10/14/18 08:54 10/14/18 08:48 - Medications Medications: Current Medications Acetaminophen (Tylenol 325mg Tab) 650 mg PO Q6 PRN PRN Reason: Fever >100.4 F Allopurinol (Zyloprim) 100 mg PO DAILY [facility] Last Admin: 10/14/18 08:54 Dose: 100 mg Amantadine HCl (Amantadine 100 Mg Cap) 100 mg PO BID [facility] Last Admin: 10/14/18 08:53 Dose: 100 mg Aspirin (Aspirin Chewable) 81 mg PO DAILY [facility] Last Admin: 10/14/18 08:53 Dose: 81 mg Atorvastatin Calcium (Lipitor) 10 mg PO [facility] Last Admin: 10/13/18 21:02 Dose: 10 mg Docusate Sodium (Colace) 100 mg PO BID [facility] Last Admin: 10/14/18 08:53 Dose: 100 mg Glipizide (Glucotrol Xl) 10 mg PO DAILY [facility] Last Admin: 10/14/18 08:54 Dose: 10 mg Hydrochlorothiazide (Microzide) 12.5 mg PO DAILY [facility] Last Admin: 10/14/18 08:54 Dose: 12.5 mg Insulin Human Lispro (Humalog) 0 units SC [facility]; Protocol Last Admin: 10/14/18 12:05 Dose: 2 unit Losartan Potassium (Cozaar) 25 mg PO DAILY [facility] Last Admin: 10/14/18 08:53 Dose: 25 mg Metoprolol Succinate (Toprol Xl) 50 mg PO DAILY [facility] Last Admin: 10/14/18 08:54 Dose: 50 mg Pantoprazole Sodium (Protonix Ec Tab) 40 mg PO DAILY [facility] Last Admin: 10/14/18 08:54 Dose: 40 mg Pioglitazone HCl (Actos) 15 mg PO DAILY [facility] Last Admin: 10/14/18 08:53 Dose: 15 mg - Labs Labs: 10/12/18 06:20 10/12/18 06:20 - Head Exam Head Exam: ATRAUMATIC, NORMAL INSPECTION, NORMOCEPHALIC - Eye Exam Eye Exam: EOMI, Normal appearance, PERRL Pupil Exam: NORMAL ACCOMODATION - ENT Exam ENT Exam: Mucous Membranes Moist, Normal Exam - Neck Exam Neck Exam: Full ROM, Normal Inspection - Respiratory Exam Respiratory Exam: NORMAL BREATHING PATTERN - Cardiovascular Exam Cardiovascular Exam: REGULAR RHYTHM - GI/Abdominal Exam GI & Abdominal Exam: Soft, Normal Bowel Sounds - Rectal Exam Rectal Exam: NORMAL INSPECTION - Exam External exam: NORMAL EXTERNAL EXAM - Extremities Exam Extremities Exam: Full ROM, Normal Capillary Refill - Back Exam Back Exam: NORMAL INSPECTION - Neurological Exam Neurological Exam: Alert, Awake Neuro motor strength exam: Left Upper Extremity: 3, Right Upper Extremity: 3, Left Lower Extremity: 3, Right Lower Extremity: 3 - Psychiatric Exam Psychiatric exam: Normal Affect, Normal Mood - Skin Skin Exam: Dry, Intact Assessment and Plan (1) CVA (cerebral vascular accident) Assessment & Plan: plan for physical, occupational, speech and rec therapy for Dc Oct 29 Status: Acute
--- NOTE | 2018-10-14 12:17 | CP.PCM.PN ---
Subjective - Date & Time of Evaluation Date of Evaluation: 10/12/18 Time of Evaluation: 16:00 - Subjective Subjective: no acute complaints Objective - Vital Signs/Intake and Output Vital Signs (last 24 hours): Temp Pulse Resp BP Pulse Ox 98.1 F 69 20 132/73 96 10/14/18 07:39 10/14/18 08:54 10/14/18 07:39 10/14/18 08:54 10/14/18 08:48 - Medications Medications: Current Medications Acetaminophen (Tylenol 325mg Tab) 650 mg PO Q6 PRN PRN Reason: Fever >100.4 F Allopurinol (Zyloprim) 100 mg PO DAILY [facility] Last Admin: 10/14/18 08:54 Dose: 100 mg Amantadine HCl (Amantadine 100 Mg Cap) 100 mg PO BID [facility] Last Admin: 10/14/18 08:53 Dose: 100 mg Aspirin (Aspirin Chewable) 81 mg PO DAILY [facility] Last Admin: 10/14/18 08:53 Dose: 81 mg Atorvastatin Calcium (Lipitor) 10 mg PO HS [facility] Last Admin: 10/13/18 21:02 Dose: 10 mg Docusate Sodium (Colace) 100 mg PO BID [facility] Last Admin: 10/14/18 08:53 Dose: 100 mg Glipizide (Glucotrol Xl) 10 mg PO DAILY [facility] Last Admin: 10/14/18 08:54 Dose: 10 mg Hydrochlorothiazide (Microzide) 12.5 mg PO DAILY [facility] Last Admin: 10/14/18 08:54 Dose: 12.5 mg Insulin Human Lispro (Humalog) 0 units SC [facility]; Protocol Last Admin: 10/14/18 12:05 Dose: 2 unit Losartan Potassium (Cozaar) 25 mg PO DAILY [facility] Last Admin: 10/14/18 08:53 Dose: 25 mg Metoprolol Succinate (Toprol Xl) 50 mg PO DAILY [facility] Last Admin: 10/14/18 08:54 Dose: 50 mg Pantoprazole Sodium (Protonix Ec Tab) 40 mg PO DAILY [facility] Last Admin: 10/14/18 08:54 Dose: 40 mg Pioglitazone HCl (Actos) 15 mg PO DAILY [facility] Last Admin: 10/14/18 08:53 Dose: 15 mg - Labs Labs: 10/12/18 06:20 10/12/18 06:20 - Head Exam Head Exam: ATRAUMATIC, NORMAL INSPECTION, NORMOCEPHALIC - Eye Exam Eye Exam: EOMI, Normal appearance, PERRL Pupil Exam: NORMAL ACCOMODATION - ENT Exam ENT Exam: Mucous Membranes Moist, Normal Exam - Neck Exam Neck Exam: Normal Inspection - Respiratory Exam Respiratory Exam: Clear to Ausculation Bilateral, NORMAL BREATHING PATTERN - Cardiovascular Exam Cardiovascular Exam: REGULAR RHYTHM - GI/Abdominal Exam GI & Abdominal Exam: Normal Bowel Sounds - Rectal Exam Rectal Exam: NORMAL INSPECTION - Exam External exam: NORMAL EXTERNAL EXAM - Extremities Exam Extremities Exam: Full ROM, Normal Capillary Refill - Back Exam Back Exam: NORMAL INSPECTION - Neurological Exam Neurological Exam: Alert, Awake Neuro motor strength exam: Left Upper Extremity: 3, Right Upper Extremity: 3, Left Lower Extremity: 3, Right Lower Extremity: 3 - Psychiatric Exam Psychiatric exam: Normal Affect, Normal Mood - Skin Skin Exam: Dry, Normal Color Assessment and Plan (1) CVA (cerebral vascular accident) Assessment & Plan: plan for pt, ot rec and St follow up with neurologist Status: Acute
[2018-10-15] MEDS: Insulin Lispro (humaLOG) 100 Units/ml Inj SC SCH ×4 (06:40→21:20)
--- NOTE | 2018-10-15 06:56 | CP.PCM.PN ---
Subjective - Date & Time of Evaluation Date of Evaluation: 10/15/18 Time of Evaluation: 06:56 - Subjective Subjective: Pt participating in PT well no complaints denies cp, sob, calf tenderness hd stable nad Objective - Vital Signs/Intake and Output Vital Signs (last 24 hours): Temp Pulse Resp BP Pulse Ox 97.4 F L 60 20 121/78 100 10/14/18 20:00 10/14/18 20:00 10/14/18 20:00 10/14/18 20:00 10/14/18 20:00 Intake and Output: Vitals Reviewed GEN: WDWN, alert, cooperative HEENT: NCAT, PERRL, EOMI HEART: RRR, +S1S2, NO MRG LUNG: CTAB, NO WRR ABD: soft, NT, ND, No HSM, No masses EXT: normal pedal pulses NEURO: awake, alert SKIN: warm, dry PSYCH: normal mood, normal affect - Medications Medications: Current Medications Acetaminophen (Tylenol 325mg Tab) 650 mg PO Q6 PRN PRN Reason: Fever >100.4 F Allopurinol (Zyloprim) 100 mg PO DAILY [facility] Last Admin: 10/14/18 08:54 Dose: 100 mg Amantadine HCl (Amantadine 100 Mg Cap) 100 mg PO BID [facility] Last Admin: 10/14/18 16:58 Dose: 100 mg Aspirin (Aspirin Chewable) 81 mg PO DAILY [facility] Last Admin: 10/14/18 08:53 Dose: 81 mg Atorvastatin Calcium (Lipitor) 10 mg PO [facility] Last Admin: 10/14/18 21:29 Dose: 10 mg Docusate Sodium (Colace) 100 mg PO BID [facility] Last Admin: 10/14/18 16:58 Dose: 100 mg Glipizide (Glucotrol Xl) 10 mg PO DAILY [facility] Last Admin: 10/14/18 08:54 Dose: 10 mg Hydrochlorothiazide (Microzide) 12.5 mg PO DAILY [facility] Last Admin: 10/14/18 08:54 Dose: 12.5 mg Insulin Human Lispro (Humalog) 0 units SC [facility]; Protocol Last Admin: 10/15/18 06:40 Dose: Not Given Losartan Potassium (Cozaar) 25 mg PO DAILY [facility] Last Admin: 10/14/18 08:53 Dose: 25 mg Metoprolol Succinate (Toprol Xl) 50 mg PO DAILY [facility] Last Admin: 10/14/18 08:54 Dose: 50 mg Pantoprazole Sodium (Protonix Ec Tab) 40 mg PO DAILY [facility] Last Admin: 10/14/18 08:54 Dose: 40 mg Pioglitazone HCl (Actos) 15 mg PO DAILY [facility] Last Admin: 10/14/18 08:53 Dose: 15 mg - Labs Labs: 10/12/18 06:20 10/12/18 06:20 Assessment and Plan - Assessment and Plan (Free Text) Plan: 77 year old Russian male with PMH HTN, Type 2 DM, Hyperlipidemia, Hx of Ischemic CVA, Hx of Hemorrhagic CVA was transferred from [facility] for admission to acute rehab today for physical therapy. He was diagnosed initially with left SUEDE CLEANER territory ischemic stroke. CT 10/11 showed complex hemorrhagic conversion with mass effect and minimal rightward midline shift and left cerebellar peduncle enchroached. He was admitted in acute rehab for PT, ASA, and lovenox discontinued and neuro consulted. Repeat CT head showed stable hemorrhagic conversion. 1. Acute Left SUEDE CLEANER ischemic stroke with complex hemorrhagic conversion and mass effect Repeat CT head showed stable hemorrhagic conversion Neurology consult appreciated. Since patient is high risk for recurrent stroke s tarted back on ASA Continue BP control Continue PT / OT/ speech therapy Continue Sttain and Amantadine 2.Afib rate controlled continue beta blockers 3. HTN controlled on Metoprolol, Losartan, HCTZ 4. DM type II controlled continue Accuchecks, insulin coverage, diabetic diet on Glipizide, Pioglitazone 5. Gout on Allopurinol stable 6. DVT prophylaxis SCD
[2018-10-15] MEDS: GlipiZIDE 10 mg SR Tab PO SCH (08:32)
[2018-10-15] MEDS: Metoprolol Succinate 50 mg XL Tab PO SCH (08:33)
[2018-10-15] MEDS: Pantoprazole 40 mg EC Tab PO SCH (08:33)
--- NOTE | 2018-10-15 13:09 | CP.PCM.PN ---
Subjective - Date & Time of Evaluation Date of Evaluation: 10/15/18 Time of Evaluation: 11:10 - Subjective Subjective: no acute complaints at present Objective - Vital Signs/Intake and Output Vital Signs (last 24 hours): Temp Pulse Resp BP Pulse Ox 97.7 F 65 18 144/85 96 10/15/18 09:25 10/15/18 09:25 10/15/18 09:25 10/15/18 09:25 10/15/18 09:25 - Medications Medications: Current Medications Acetaminophen (Tylenol 325mg Tab) 650 mg PO Q6 PRN PRN Reason: Fever >100.4 F Allopurinol (Zyloprim) 100 mg PO DAILY [facility] Last Admin: 10/15/18 08:33 Dose: 100 mg Amantadine HCl (Amantadine 100 Mg Cap) 100 mg PO BID [facility] Last Admin: 10/15/18 08:29 Dose: 100 mg Aspirin (Aspirin Chewable) 81 mg PO DAILY [facility] Last Admin: 10/15/18 08:29 Dose: 81 mg Atorvastatin Calcium (Lipitor) 10 mg PO [facility] Last Admin: 10/14/18 21:29 Dose: 10 mg Docusate Sodium (Colace) 100 mg PO BID [facility] Last Admin: 10/15/18 08:29 Dose: 100 mg Glipizide (Glucotrol Xl) 10 mg PO DAILY [facility] Last Admin: 10/15/18 08:32 Dose: 10 mg Hydrochlorothiazide (Microzide) 12.5 mg PO DAILY [facility] Last Admin: 10/15/18 08:33 Dose: 12.5 mg Insulin Human Lispro (Humalog) 0 units SC [facility]; Protocol Last Admin: 10/15/18 12:53 Dose: 2 unit Lactulose (Enulose) 20 gm PO DAILY PRN PRN Reason: Constipation Losartan Potassium (Cozaar) 25 mg PO DAILY [facility] Last Admin: 10/15/18 08:32 Dose: 25 mg Metoprolol Succinate (Toprol Xl) 50 mg PO DAILY [facility] Last Admin: 10/15/18 08:33 Dose: 50 mg Pantoprazole Sodium (Protonix Ec Tab) 40 mg PO DAILY [facility] Last Admin: 10/15/18 08:33 Dose: 40 mg Pioglitazone HCl (Actos) 15 mg PO DAILY [facility] Last Admin: 10/15/18 08:29 Dose: 15 mg - Labs Labs: 10/12/18 06:20 10/12/18 06:20 - Head Exam Head Exam: ATRAUMATIC, NORMAL INSPECTION, NORMOCEPHALIC - Eye Exam Eye Exam: EOMI, Normal appearance, PERRL Pupil Exam: NORMAL ACCOMODATION - ENT Exam ENT Exam: Mucous Membranes Moist, Normal Exam - Neck Exam Neck Exam: Full ROM, Normal Inspection - Respiratory Exam Respiratory Exam: NORMAL BREATHING PATTERN - Cardiovascular Exam Cardiovascular Exam: REGULAR RHYTHM - GI/Abdominal Exam GI & Abdominal Exam: Soft - Rectal Exam Rectal Exam: NORMAL INSPECTION - Exam External exam: NORMAL EXTERNAL EXAM - Extremities Exam Extremities Exam: Full ROM, Normal Capillary Refill - Back Exam Back Exam: NORMAL INSPECTION - Neurological Exam Neurological Exam: Alert Neuro motor strength exam: Left Upper Extremity: 3, Right Upper Extremity: 3, Left Lower Extremity: 3, Right Lower Extremity: 3 - Psychiatric Exam Psychiatric exam: Normal Affect, Normal Mood - Skin Skin Exam: Normal Color Assessment and Plan (1) CVA (cerebral vascular accident) Assessment & Plan: plan for pt, ot rec and st covering for Dr wilkerson subacute after acute may be needed Status: Acute
[2018-10-16] MEDS: Insulin Lispro (humaLOG) 100 Units/ml Inj SC SCH ×4 (07:08→21:15)
[2018-10-16] MEDS: Pantoprazole 40 mg EC Tab PO SCH (09:25)
[2018-10-16] MEDS: GlipiZIDE 10 mg SR Tab PO SCH (09:25)
[2018-10-16] MEDS: Metoprolol Succinate 50 mg XL Tab PO SCH (09:26)
[2018-10-16] MEDS: CENTRUM SILVER MULTIVITAMIN PO SCH (17:47)
[2018-10-17] MEDS: Insulin Lispro (humaLOG) 100 Units/ml Inj SC SCH ×4 (07:06→21:11)
[2018-10-17] MEDS: GlipiZIDE 10 mg SR Tab PO SCH (08:16)
[2018-10-17] MEDS: CENTRUM SILVER MULTIVITAMIN PO SCH (08:16)
[2018-10-17] MEDS ORDERED: Enoxaparin 40 mg Syringe SC SCH (09:00)
[2018-10-17] MEDS: Pantoprazole 40 mg EC Tab PO SCH (10:00)
[2018-10-17] MEDS: Metoprolol Succinate 50 mg XL Tab PO SCH (10:00)
--- NOTE | 2018-10-17 18:59 | CP.PCM.PN ---
Subjective - Date & Time of Evaluation Date of Evaluation: 10/17/18 Time of Evaluation: 16:00 - Subjective Subjective: Patient seen and examined. Denied any complaint Objective - Vital Signs/Intake and Output Vital Signs (last 24 hours): Temp Pulse Resp BP Pulse Ox 98 F 88 20 120/80 98 10/17/18 09:00 10/17/18 10:00 10/17/18 09:00 10/17/18 10:00 10/17/18 09:00 - Medications Medications: Current Medications Acetaminophen (Tylenol 325mg Tab) 650 mg PO Q6 PRN PRN Reason: Fever >100.4 F Allopurinol (Zyloprim) 100 mg PO DAILY [facility] Last Admin: 10/17/18 08:16 Dose: 100 mg Amantadine HCl (Amantadine 100 Mg Cap) 100 mg PO BID [facility] Last Admin: 10/17/18 16:25 Dose: 100 mg Aspirin (Aspirin Chewable) 81 mg PO DAILY [facility] Last Admin: 10/17/18 08:15 Dose: 81 mg Atorvastatin Calcium (Lipitor) 10 mg PO HS [facility] Last Admin: 10/16/18 21:15 Dose: 10 mg Docusate Sodium (Colace) 100 mg PO BID [facility] Last Admin: 10/17/18 16:24 Dose: 100 mg Glipizide (Glucotrol Xl) 10 mg PO DAILY [facility] Last Admin: 10/17/18 08:16 Dose: 10 mg Home Med (Patient's Own Medication) 1 unit PO DAILY [facility] Last Admin: 10/17/18 08:16 Dose: 1 unit Hydrochlorothiazide (Microzide) 12.5 mg PO DAILY [facility] Last Admin: 10/17/18 10:00 Dose: 12.5 mg Insulin Human Lispro (Humalog) 0 units SC [facility]; Protocol Last Admin: 10/17/18 16:25 Dose: 1 unit Lactulose (Enulose) 20 gm PO DAILY PRN PRN Reason: Constipation Losartan Potassium (Cozaar) 25 mg PO DAILY [facility] Last Admin: 10/17/18 08:16 Dose: 25 mg Metoprolol Succinate (Toprol Xl) 50 mg PO DAILY [facility] Last Admin: 10/17/18 10:00 Dose: 50 mg Pantoprazole Sodium (Protonix Ec Tab) 40 mg PO DAILY [facility] Last Admin: 10/17/18 10:00 Dose: 40 mg Pioglitazone HCl (Actos) 15 mg PO DAILY [facility] Last Admin: 10/17/18 08:17 Dose: 15 mg - Labs Labs: 10/12/18 06:20 10/12/18 06:20 - Constitutional Appears: No Acute Distress - Head Exam Head Exam: ATRAUMATIC - Eye Exam Eye Exam: absent: Scleral icterus - ENT Exam ENT Exam: Mucous Membranes Moist - Neck Exam Neck Exam: absent: Meningismus - Respiratory Exam Respiratory Exam: absent: Rales, Rhonchi, Wheezes, Respiratory Distress - Cardiovascular Exam Cardiovascular Exam: REGULAR RHYTHM, +S1, +S2 - GI/Abdominal Exam GI & Abdominal Exam: Soft. absent: Tenderness - Rectal Exam Rectal Exam: Deferred - Neurological Exam Neurological Exam: Alert, Oriented x3 - Psychiatric Exam Psychiatric exam: Normal Affect - Skin Skin Exam: Dry, Intact Assessment and Plan - Assessment and Plan (Free Text) Assessment: 77 yo male with history of HTN, DM2, HLD and CVA was transferred from [facility] for admission to acute rehab for physical therapy. CT 10/11 showed complex hemorrhagic conversion with mass effect and minimal rightward midline shift and left cerebellar peduncle enchroachment. 1. Acute Left WELFARE DIRECTOR ischemic stroke with complex hemorrhagic conversion and mass effect Continue PT / OT/ speech therapy Continue Statin and Amantadine 2.Afib rate controlled continue beta blockers 3. HTN controlled on Metoprolol, Losartan, HCTZ 4. DM type II controlled continue Accuchecks, insulin coverage, diabetic diet on Glipizide, Pioglitazone 5. Gout on Allopurinol stable
[2018-10-17] MEDS ORDERED: Patient's Own Med (Rosuvastatin Calcium [Crestor] 10 MG) PO SCH (22:00)
[2018-10-18] MEDS: Insulin Lispro (humaLOG) 100 Units/ml Inj SC SCH ×4 (06:42→21:06)
[2018-10-18 07:30] LABS: BLOOD UREA NITROGEN 26 mg/dl (9-20); CALCIUM 8.8 mg/dL (8.4-10.2); GFR NON-AFRICAN AMERICAN 54
[2018-10-18] MEDS: Metoprolol Succinate 50 mg XL Tab PO SCH (08:17)
[2018-10-18] MEDS: Pantoprazole 40 mg EC Tab PO SCH (08:18)
[2018-10-18] MEDS: GlipiZIDE 10 mg SR Tab PO SCH (08:19)
[2018-10-18] MEDS: CENTRUM SILVER MULTIVITAMIN PO SCH (08:19)
[2018-10-19] MEDS: Insulin Lispro (humaLOG) 100 Units/ml Inj SC SCH ×4 (07:00→21:01)
[2018-10-19] MEDS: CENTRUM SILVER MULTIVITAMIN PO SCH (09:24)
[2018-10-19] MEDS: Pantoprazole 40 mg EC Tab PO SCH (09:25)
[2018-10-19] MEDS: Metoprolol Succinate 50 mg XL Tab PO SCH (09:26)
[2018-10-19] MEDS: GlipiZIDE 10 mg SR Tab PO SCH (09:26)
--- NOTE | 2018-10-19 20:28 | CP.PCM.PN ---
Subjective - Date & Time of Evaluation Date of Evaluation: 10/17/18 Time of Evaluation: 18:00 - Subjective Subjective: no acute complaints at present Objective - Vital Signs/Intake and Output Vital Signs (last 24 hours): Temp Pulse Resp BP Pulse Ox 98.1 F 67 19 128/67 98 10/19/18 09:55 10/19/18 09:55 10/19/18 09:55 10/19/18 09:55 10/19/18 09:55 - Medications Medications: Current Medications Acetaminophen (Tylenol 325mg Tab) 650 mg PO Q6 PRN PRN Reason: Fever >100.4 F Allopurinol (Zyloprim) 100 mg PO DAILY [facility] Last Admin: 10/19/18 09:24 Dose: 100 mg Amantadine HCl (Amantadine 100 Mg Cap) 100 mg PO BID [facility] Last Admin: 10/19/18 16:50 Dose: 100 mg Aspirin (Aspirin Chewable) 81 mg PO DAILY [facility] Last Admin: 10/19/18 09:25 Dose: 81 mg Atorvastatin Calcium (Lipitor) 10 mg PO HS [facility] Last Admin: 10/18/18 21:12 Dose: 10 mg Docusate Sodium (Colace) 100 mg PO BID [facility] Last Admin: 10/19/18 16:50 Dose: 100 mg Glipizide (Glucotrol Xl) 10 mg PO DAILY [facility] Last Admin: 10/19/18 09:26 Dose: 10 mg Home Med (Patient's Own Medication) 1 unit PO DAILY [facility] Last Admin: 10/19/18 09:24 Dose: 1 unit Hydrochlorothiazide (Microzide) 12.5 mg PO DAILY [facility] Last Admin: 10/19/18 09:25 Dose: 12.5 mg Insulin Human Lispro (Humalog) 0 units SC [facility]; Protocol Last Admin: 10/19/18 16:50 Dose: 1 unit Lactulose (Enulose) 20 gm PO DAILY PRN PRN Reason: Constipation Last Admin: 10/18/18 18:36 Dose: 20 gm Losartan Potassium (Cozaar) 25 mg PO DAILY [facility] Last Admin: 10/19/18 09:26 Dose: 25 mg Metoprolol Succinate (Toprol Xl) 50 mg PO DAILY [facility] Last Admin: 10/19/18 09:26 Dose: 50 mg Pantoprazole Sodium (Protonix Ec Tab) 40 mg PO DAILY [facility] Last Admin: 10/19/18 09:25 Dose: 40 mg Pioglitazone HCl (Actos) 15 mg PO DAILY [facility] Last Admin: 10/19/18 09:25 Dose: 15 mg - Labs Labs: 10/12/18 06:20 10/18/18 05:30 - Constitutional Appears: Well - Head Exam Head Exam: ATRAUMATIC, NORMAL INSPECTION, NORMOCEPHALIC - Eye Exam Eye Exam: Normal appearance Pupil Exam: NORMAL ACCOMODATION - ENT Exam ENT Exam: Mucous Membranes Moist, Normal Exam - Neck Exam Neck Exam: Normal Inspection - Respiratory Exam Respiratory Exam: Clear to Ausculation Bilateral, NORMAL BREATHING PATTERN - Cardiovascular Exam Cardiovascular Exam: REGULAR RHYTHM - GI/Abdominal Exam GI & Abdominal Exam: Soft, Normal Bowel Sounds - Rectal Exam Rectal Exam: NORMAL INSPECTION - Exam External exam: NORMAL EXTERNAL EXAM - Extremities Exam Extremities Exam: Full ROM, Normal Capillary Refill, Normal Inspection - Back Exam Back Exam: NORMAL INSPECTION - Neurological Exam Neurological Exam: Alert, Awake - Psychiatric Exam Psychiatric exam: Normal Affect, Normal Mood - Skin Skin Exam: Dry, Normal Color Assessment and Plan (1) CVA (cerebral vascular accident) Assessment & Plan: plan to continue with physical, occupational, rec and speech therapy program Status: Acute
[2018-10-20] MEDS: Insulin Lispro (humaLOG) 100 Units/ml Inj SC SCH ×4 (06:30→21:29)
[2018-10-20] MEDS: CENTRUM SILVER MULTIVITAMIN PO SCH (09:23)
[2018-10-20] MEDS: GlipiZIDE 10 mg SR Tab PO SCH (09:23)
[2018-10-20] MEDS: Metoprolol Succinate 50 mg XL Tab PO SCH (09:24)
[2018-10-20] MEDS: Pantoprazole 40 mg EC Tab PO SCH (09:24)
[2018-10-20] MEDS ORDERED: Alum-Mag Hydrox-Simethicone Susp (30 mL) PO PRN (15:34)
--- NOTE | 2018-10-20 15:44 | CP.PCM.PN ---
Subjective - Date & Time of Evaluation Date of Evaluation: 10/20/18 Time of Evaluation: 15:41 - Subjective Subjective: Patient seen in the room with his present who helped with translation. He is tired and needed prompting to be cooperative with manual motor testing He had full ROM, but could not provide significant resistance so roughly 3+/5 to 4-/5 no pain no sob/cp continue current care nursing discussed with neuro him being a little more groggy and they will be doing a repeat head CT if no acute change I will start Provigil Objective - Vital Signs/Intake and Output Vital Signs (last 24 hours): Temp Pulse Resp BP Pulse Ox 97.7 F 62 18 127/69 97 10/20/18 09:27 10/20/18 09:27 10/20/18 09:27 10/20/18 09:27 10/20/18 09:27 - Medications Medications: Current Medications Acetaminophen (Tylenol 325mg Tab) 650 mg PO Q6 PRN PRN Reason: Fever >100.4 F Al Hydrox/Mg Hydrox/Simethicone (Maalox Plus 30 Ml) 30 ml PO Q6 PRN PRN Reason: Indigestion / Heartburn Allopurinol (Zyloprim) 100 mg PO DAILY [facility] Last Admin: 10/20/18 09:24 Dose: 100 mg Amantadine HCl (Amantadine 100 Mg Cap) 100 mg PO BID [facility] Last Admin: 10/20/18 09:22 Dose: 100 mg Aspirin (Aspirin Chewable) 81 mg PO DAILY [facility] Last Admin: 10/20/18 09:22 Dose: 81 mg Atorvastatin Calcium (Lipitor) 10 mg PO HS [facility] Last Admin: 10/19/18 21:08 Dose: 10 mg Docusate Sodium (Colace) 100 mg PO BID [facility] Last Admin: 10/20/18 09:22 Dose: 100 mg Glipizide (Glucotrol Xl) 10 mg PO DAILY [facility] Last Admin: 10/20/18 09:23 Dose: 10 mg Home Med (Patient's Own Medication) 1 unit PO DAILY [facility] Last Admin: 10/20/18 09:23 Dose: 1 unit Hydrochlorothiazide (Microzide) 12.5 mg PO DAILY [facility] Last Admin: 10/20/18 09:23 Dose: 12.5 mg Insulin Human Lispro (Humalog) 0 units SC [facility]; Protocol Last Admin: 10/20/18 12:34 Dose: 1 unit Lactulose (Enulose) 20 gm PO DAILY PRN PRN Reason: Constipation Last Admin: 10/18/18 18:36 Dose: 20 gm Losartan Potassium (Cozaar) 25 mg PO DAILY [facility] Last Admin: 10/20/18 09:23 Dose: 25 mg Metoprolol Succinate (Toprol Xl) 50 mg PO DAILY [facility] Last Admin: 10/20/18 09:24 Dose: 50 mg Pantoprazole Sodium (Protonix Ec Tab) 40 mg PO DAILY [facility] Last Admin: 10/20/18 09:24 Dose: 40 mg Pioglitazone HCl (Actos) 15 mg PO DAILY [facility] Last Admin: 10/20/18 09:22 Dose: 15 mg - Labs Labs: 10/12/18 06:20 10/18/18 05:30
--- NOTE | 2018-10-20 17:01 | CT ---
Date of service: 10/20/2018 PROCEDURE: CT HEAD WITHOUT CONTRAST. HISTORY: lethargy COMPARISON: Noncontrast head CT 10/12/2018. TECHNIQUE: Axial computed tomography images were obtained through the head/brain without intravenous contrast. Radiation dose: Total exam DLP = 852.25 mGy-cm. This CT exam was performed using one or more of the following dose reduction techniques: Automated exposure control, adjustment of the mA and/or kV according to patient size, and/or use of iterative reconstruction technique. FINDINGS: HEMORRHAGE: Prior hemorrhagic conversion of left BOBBIN COIL WINDER infarct is again evident, however, there are areas of hyperdensity in the periphery which may indicate new interval hemorrhage and further clinical correlation is recommended. No significant interval change in mass effect is appreciated with minimal rightward midline shift again seen less than 1 cm and partial face of the left lateral ventricle reiterated as well as loss of local sulcation. BRAIN: Diffuse cerebral atrophy chronic microangiopathy are reiterated as well as small chronic lobar infarction left frontal lobe and minimally at the right frontal lobe anteriorly. Posterior fossa contents appear stable and unremarkable. VENTRICLES: Unremarkable. No hydrocephalus. CALVARIUM: Unremarkable. PARANASAL SINUSES: Unremarkable as visualized. No significant inflammatory changes. MASTOID AIR CELLS: Unremarkable as visualized. No inflammatory changes. OTHER FINDINGS: None. IMPRESSION: Prior site of hemorrhagic conversion at the left BOBBIN COIL WINDER ischemic infarct is suspicious for new interval hemorrhage at this time with no signal interval change in overall mass effect currently. Follow-up head CT advised. Stable age related neuro degenerative findings. Findings discussed with Nurse Thao Whipple, with written down and read back verification 10/20/2018 4:50 p.m..
--- NOTE | 2018-10-20 17:23 | CP.PCM.PN ---
Subjective - Date & Time of Evaluation Date of Evaluation: 10/20/18 Time of Evaluation: 16:00 - Subjective Subjective: Neurology Consultation Follow-Up Note: Mr. Richard was evaluated this afternoon by myself and Dr. Glover at bedside with present. Neuro team was called today to re-evaluate the patient for increase periods of lethargy. Per nursing staff, patient has episodes during the day where he is very sleepy and does not want to eat or participate with activities-- also confirms this. Mr. Richard is known to us from his recent admission to [facility], and we managed his recent CVA there. Patient presently denies any distress and has no complaints. Objective - Vital Signs/Intake and Output Vital Signs (last 24 hours): Temp Pulse Resp BP Pulse Ox 97.7 F 62 18 127/69 97 10/20/18 09:27 10/20/18 09:27 10/20/18 09:27 10/20/18 09:27 10/20/18 09:27 - Medications Medications: Current Medications Acetaminophen (Tylenol 325mg Tab) 650 mg PO Q6 PRN PRN Reason: Fever >100.4 F Al Hydrox/Mg Hydrox/Simethicone (Maalox Plus 30 Ml) 30 ml PO Q6 PRN PRN Reason: Indigestion / Heartburn Allopurinol (Zyloprim) 100 mg PO DAILY [facility] Last Admin: 10/20/18 09:24 Dose: 100 mg Amantadine HCl (Amantadine 100 Mg Cap) 100 mg PO BID [facility] Last Admin: 10/20/18 09:22 Dose: 100 mg Aspirin (Aspirin Chewable) 81 mg PO DAILY [facility] Last Admin: 10/20/18 09:22 Dose: 81 mg Atorvastatin Calcium (Lipitor) 10 mg PO HS [facility] Last Admin: 10/19/18 21:08 Dose: 10 mg Docusate Sodium (Colace) 100 mg PO BID [facility] Last Admin: 10/20/18 09:22 Dose: 100 mg Glipizide (Glucotrol Xl) 10 mg PO DAILY [facility] Last Admin: 10/20/18 09:23 Dose: 10 mg Home Med (Patient's Own Medication) 1 unit PO DAILY [facility] Last Admin: 10/20/18 09:23 Dose: 1 unit Hydrochlorothiazide (Microzide) 12.5 mg PO DAILY [facility] Last Admin: 10/20/18 09:23 Dose: 12.5 mg Insulin Human Lispro (Humalog) 0 units SC [facility]; Protocol Last Admin: 10/20/18 12:34 Dose: 1 unit Lactulose (Enulose) 20 gm PO DAILY PRN PRN Reason: Constipation Last Admin: 10/18/18 18:36 Dose: 20 gm Losartan Potassium (Cozaar) 25 mg PO DAILY [facility] Last Admin: 10/20/18 09:23 Dose: 25 mg Methylphenidate HCl (Ritalin) 2.5 mg PO DAILY [facility] Metoprolol Succinate (Toprol Xl) 50 mg PO DAILY [facility] Last Admin: 10/20/18 09:24 Dose: 50 mg Pantoprazole Sodium (Protonix Ec Tab) 40 mg PO DAILY [facility] Last Admin: 10/20/18 09:24 Dose: 40 mg Pioglitazone HCl (Actos) 15 mg PO DAILY [facility] Last Admin: 10/20/18 09:22 Dose: 15 mg - Labs Labs: 10/12/18 06:20 10/18/18 05:30 - Constitutional Appears: Well, Non-toxic, No Acute Distress - Head Exam Head Exam: ATRAUMATIC, NORMAL INSPECTION, NORMOCEPHALIC - Eye Exam Eye Exam: EOMI, Normal appearance Pupil Exam: PERRL - ENT Exam ENT Exam: Mucous Membranes Moist - Neck Exam Neck Exam: Full ROM - Respiratory Exam Respiratory Exam: NORMAL BREATHING PATTERN - Neurological Exam Neurological Exam: Alert, Awake, CN II-XII Intact, Reflexes Normal Additional comments: Periods of confusion and lethargy per nursing staff. During exam, patient answers questions appropriately and is more awake and alert compared to my last encounter with him at [facility]. Strength and sensation are intact and equal bilaterally. - Psychiatric Exam Psychiatric exam: Normal Affect, Normal Mood - Skin Skin Exam: Normal Color, Warm Assessment and Plan (1) CVA (cerebral vascular accident) Assessment & Plan: -CT Head without contrast ordered to rule out possible new stroke---will f/u with results once done. -Start Methylphenidate 2.5 mg po daily (start tomorrow morning) to increase activity during the daytime hours, as pt is very sleepy "all day" per his . -Overall, Mr. Richard is doing well. He seems to be progressing and his level of consciousness is improved compared to my last encounter with him at [facility]. -Please call neuro team with any acute changes in patient's condition or abnormal CT Head results. -We will continue to follow Mr. Richard throughout his stay in rehab. Patient seen with and case discussed with Dr. Glover. Thank you for allowing us to participate in this patient's care. Status: Acute
--- NOTE | 2018-10-20 20:22 | CP.PCM.PN ---
Subjective - Date & Time of Evaluation Date of Evaluation: 10/20/18 Time of Evaluation: 14:40 - Subjective Subjective: Patient seen and examined. Continue bring lethargic but otherwise without complaint Objective - Vital Signs/Intake and Output Vital Signs (last 24 hours): Temp Pulse Resp BP Pulse Ox 97.3 F L 65 18 147/72 97 10/20/18 17:36 10/20/18 17:36 10/20/18 17:36 10/20/18 17:36 10/20/18 17:36 - Medications Medications: Current Medications Acetaminophen (Tylenol 325mg Tab) 650 mg PO Q6 PRN PRN Reason: Fever >100.4 F Al Hydrox/Mg Hydrox/Simethicone (Maalox Plus 30 Ml) 30 ml PO Q6 PRN PRN Reason: Indigestion / Heartburn Allopurinol (Zyloprim) 100 mg PO DAILY [facility] Last Admin: 10/20/18 09:24 Dose: 100 mg Amantadine HCl (Amantadine 100 Mg Cap) 100 mg PO BID [facility] Last Admin: 10/20/18 17:22 Dose: 100 mg Atorvastatin Calcium (Lipitor) 10 mg PO HS [facility] Last Admin: 10/19/18 21:08 Dose: 10 mg Docusate Sodium (Colace) 100 mg PO BID [facility] Last Admin: 10/20/18 17:22 Dose: 100 mg Glipizide (Glucotrol Xl) 10 mg PO DAILY [facility] Last Admin: 10/20/18 09:23 Dose: 10 mg Home Med (Patient's Own Medication) 1 unit PO DAILY [facility] Last Admin: 10/20/18 09:23 Dose: 1 unit Hydrochlorothiazide (Microzide) 12.5 mg PO DAILY [facility] Last Admin: 10/20/18 09:23 Dose: 12.5 mg Insulin Human Lispro (Humalog) 0 units SC [facility]; Protocol Last Admin: 10/20/18 17:22 Dose: 1 unit Lactulose (Enulose) 20 gm PO DAILY PRN PRN Reason: Constipation Last Admin: 10/18/18 18:36 Dose: 20 gm Losartan Potassium (Cozaar) 25 mg PO DAILY [facility] Last Admin: 10/20/18 09:23 Dose: 25 mg Methylphenidate HCl (Ritalin) 2.5 mg PO DAILY [facility] Metoprolol Succinate (Toprol Xl) 50 mg PO DAILY [facility] Last Admin: 10/20/18 09:24 Dose: 50 mg Pantoprazole Sodium (Protonix Ec Tab) 40 mg PO DAILY [facility] Last Admin: 10/20/18 09:24 Dose: 40 mg Pioglitazone HCl (Actos) 15 mg PO DAILY [facility] Last Admin: 10/20/18 09:22 Dose: 15 mg - Labs Labs: 10/12/18 06:20 10/18/18 05:30 - Constitutional Appears: No Acute Distress - Head Exam Head Exam: ATRAUMATIC - Eye Exam Eye Exam: absent: Scleral icterus - ENT Exam ENT Exam: Mucous Membranes Moist - Neck Exam Neck Exam: absent: Meningismus - Respiratory Exam Respiratory Exam: absent: Rales, Rhonchi, Wheezes, Respiratory Distress - Cardiovascular Exam Cardiovascular Exam: REGULAR RHYTHM, +S1, +S2 - GI/Abdominal Exam GI & Abdominal Exam: Soft. absent: Tenderness - Rectal Exam Rectal Exam: Deferred - Neurological Exam Neurological Exam: Alert, Oriented x3 - Psychiatric Exam Psychiatric exam: Normal Affect - Skin Skin Exam: Dry, Intact Assessment and Plan - Assessment and Plan (Free Text) Assessment: 77 yo male with history of HTN, DM2, HLD and CVA was transferred from [facility] for admission to acute rehab for physical therapy. CT 10/11 showed complex hemorrhagic conversion with mass effect and minimal rightward midline shift and left cerebellar peduncle enchroachment. 1. Acute Left RE[employer] ischemic stroke with complex hemorrhagic conversion and mass effect Continue PT / OT/ speech therapy Continue Statin and Amantadine rpt CT scan: suspicious new hemorrhage will dc ASA 2.Afib rate controlled continue beta blockers 3. HTN controlled on Metoprolol, Losartan, HCTZ 4. DM type II controlled continue Accuchecks, insulin coverage, diabetic diet on Glipizide, Pioglitazone 5. Gout on Allopurinol stable
[2018-10-21] MEDS: Insulin Lispro (humaLOG) 100 Units/ml Inj SC SCH ×4 (07:24→21:38)
--- NOTE | 2018-10-21 07:51 | CP.PCM.CON ---
History of Present Illness - History of Present Illness History of Present Illness: Psychiatry consult note CC: S/p CVA; evaluate for depression HPI: 77 yo male w/ h/o HTN, DM, HLD, h/o CVAs, transferred from [facility] for acute rehabilitation. Patient has constricted affect, poverty of speech and answers questions minimally due to cognitive deficits. He denied feeling acutely depressed/anxious/AH/VH/SI/HI. Pt was asked if he wants treatment with antidepressants and he stated no. PMHx: HTN, DM, HLD, h/o CVAs ALL: NKDA SHx: Lives w/ , denies drugs/etoh/cig use Impression: 77 yo male w/ major neurocognitive impairment; patient denies acute depression/anxiety/psychosis/SI/HI. -No acute psychiatric medications indicated at this time -No acute inpatient psychiatric admission indicated Past Patient History - Infectious Disease Hx of Infectious Diseases: None - Tetanus Immunizations Tetanus Immunization: Unknown - Past Medical History & Family History Past Medical History?: Yes Past Family History: Reviewed and not pertinent - Past Social History Smoking Status: Never Smoked Chewing Tobacco Use: No Cigar Use: No Alcohol: None Home Situation {Lives}: With Family Domestic Violence: Negative - CARDIAC Hx Cardiac Disorders: Yes Hx Hypercholesterolemia: Yes Hx Hypertension: Yes - PULMONARY Hx Respiratory Disorders: No - NEUROLOGICAL HX Cerebrovascular Accident: Yes (~2 years ago as per pt's ) - HEENT Hx HEENT Problems: Yes Other/Comment: wear reading eyeglasses - RENAL Hx Chronic Kidney Disease: No - ENDOCRINE/METABOLIC Hx Diabetes Mellitus Type 2: Yes - HEMATOLOGICAL/ONCOLOGICAL Hx Blood Disorders: No - INTEGUMENTARY Hx Dermatological Problems: No - MUSCULOSKELETAL/RHEUMATOLOGICAL Hx Falls: No - GASTROINTESTINAL Hx Gastrointestinal Disorders: No - GENITOURINARY/GYNECOLOGICAL Hx Genitourinary Disorders: No - PSYCHIATRIC Hx Substance Use: No - SURGICAL HISTORY Hx Surgeries: No - ANESTHESIA Hx Anesthesia: No Meds Allergies/Adverse Reactions: Allergies Allergy/AdvReac Type Severity Reaction Status Date / Time No Known Allergies Allergy Verified 10/11/18 20:12 - Medications Medications: Current Medications Acetaminophen (Tylenol 325mg Tab) 650 mg PO Q6 PRN PRN Reason: Fever >100.4 F Al Hydrox/Mg Hydrox/Simethicone (Maalox Plus 30 Ml) 30 ml PO Q6 PRN PRN Reason: Indigestion / Heartburn Allopurinol (Zyloprim) 100 mg PO DAILY [facility] Last Admin: 10/20/18 09:24 Dose: 100 mg Amantadine HCl (Amantadine 100 Mg Cap) 100 mg PO BID [facility] Last Admin: 10/20/18 17:22 Dose: 100 mg Atorvastatin Calcium (Lipitor) 10 mg PO HS [facility] Last Admin: 10/20/18 21:28 Dose: 10 mg Docusate Sodium (Colace) 100 mg PO BID [facility] Last Admin: 10/20/18 17:22 Dose: 100 mg Glipizide (Glucotrol Xl) 10 mg PO DAILY [facility] Last Admin: 10/20/18 09:23 Dose: 10 mg Home Med (Patient's Own Medication) 1 unit PO DAILY [facility] Last Admin: 10/20/18 09:23 Dose: 1 unit Hydrochlorothiazide (Microzide) 12.5 mg PO DAILY [facility] Last Admin: 10/20/18 09:23 Dose: 12.5 mg Insulin Human Lispro (Humalog) 0 units SC [facility]; Protocol Last Admin: 10/21/18 07:24 Dose: Not Given Lactulose (Enulose) 20 gm PO DAILY PRN PRN Reason: Constipation Last Admin: 10/18/18 18:36 Dose: 20 gm Losartan Potassium (Cozaar) 25 mg PO DAILY [facility] Last Admin: 10/20/18 09:23 Dose: 25 mg Methylphenidate HCl (Ritalin) 2.5 mg PO DAILY [facility] Metoprolol Succinate (Toprol Xl) 50 mg PO DAILY [facility] Last Admin: 10/20/18 09:24 Dose: 50 mg Pantoprazole Sodium (Protonix Ec Tab) 40 mg PO DAILY [facility] Last Admin: 10/20/18 09:24 Dose: 40 mg Pioglitazone HCl (Actos) 15 mg PO DAILY [facility] Last Admin: 10/20/18 09:22 Dose: 15 mg Results - Vital Signs Recent Vital Signs: Last Vital Signs Temp 97.5 F L 10/21/18 07:37 Pulse 60 10/21/18 07:37 Resp 20 10/21/18 07:37 BP 143/83 10/21/18 07:37 Pulse Ox 100 10/21/18 07:37 - Labs Result Diagrams: 10/12/18 06:20 10/18/18 05:30 Labs: Laboratory Results - last 24 hr 10/20/18 10/20/18 10/20/18 12:04 16:57 21:23 POC Glucose (mg/dL) 172 H 193 H 83 10/21/18 06:26 POC Glucose (mg/dL) 115 H
[2018-10-21] MEDS: CENTRUM SILVER MULTIVITAMIN PO SCH (08:21)
[2018-10-21] MEDS: GlipiZIDE 10 mg SR Tab PO SCH (08:22)
[2018-10-21] MEDS: Metoprolol Succinate 50 mg XL Tab PO SCH (08:22)
[2018-10-21] MEDS: Pantoprazole 40 mg EC Tab PO SCH (08:22)
--- NOTE | 2018-10-21 13:03 | PCM.PSYTMC ---
Acute Rehab Team Conference - - Vital Signs: Vital Signs (Last 8 Hours): Vital Signs 10/21/18 10/21/18 10/21/18 07:37 08:21 11:43 Temperature 97.5 F L 97.5 F L Pulse Rate 60 60 60 Respiratory 20 20 Rate Blood Pressure 143/83 143/63 143/83 O2 Sat by Pulse 100 Oximetry Pain: 0 - Precautions: Precautions: Fall Prevention, Aspiration, Seizure - Medications/Other Issues: Comment: oriented x1 lethargic with flat affect seen and examine by psychiatry no orders patients needs a lot of verbal cues ct scan 10/20 with changes Neurologist aware ritalin ordered,also hospitalist aware - Consults: Comment: Dr Rodriguez,DR Meyer,Dr Aragon - Skin: Incision Site: N/A - Toileting: Toileting: Moderate Assistance - Bladder Management: Bladder Pattern: Normal Voiding Method: Urinal Bladder Management: Minimal Assistance - Transfers: Transfers: Minimal Assistance - ADL's: ADL's: Moderate Assistance - Pain Management: Other Intervention:: denies any pain - Patient/Family Teaching: Other Intervention:: safety fall aspiration precaution post stroke care - Goals/Time Frame: Comment: as per multidiciplinary plan of care - Provider: Registered Nurse:: Meli Garcia Physical Therapy - Bed Mobility Bed Mobility: Minimal Assistance - Transfers Wheelchair to Mat: Verbal Cues, Minimal Assistance Sit to Stand: Verbal Cues, Minimal Assistance - Ambulation Level of Assistance: Verbal Cues, Minimal Assistance Distance (ft.): 125 Assistive Devices: Rolling Walker - Stair Negotiation Stairs: Level of Assistance: Verbal Cues, Moderate Assistance Number of Stairs: 6 Handrails: Bilateral Stairs: Assistive Devices: Left Handrail, Right Handrail - Standing Balance Static Stand: Contact Guard Assist - Pain Pain (assessed during therapy session): 0 - Insight/Carryover Insight/Carryover: Poor - Patient/Family Education Comment: CVA recovery, safety, POC - Assessment/Plan Assessment: Pt participated in PT tx session focusing on BLE strengthening exercises, balance and endurance activities, and functional mobility training. Pt appears more lethargic with decreased motivation and initiation in session. RN aware. Pt requires min A for ambulating with RW, mod A for stair negotiation, Min A for transfers. Pt will continue to benefit from skilled PT interventions to address deficits, reduce fall risk, and maximize functional independence. Barriers to goal attainment: visual deficits, cognition, fatigue - Goals Timeframe: 2 weeks Goals: Sit < > supine with S. All functional transfers with S. Pt will ambulate 250 ft with RW and supervision. Ptwill ascend/descend flight of stairs with handrail and CGA - Provider Physical Therapist:: Juliet Washburn License Number:: [id number] Occupational Therapy - Arousal/Attention/Orientation Level of Consciousness: Awake, Alert, Forgetful, Confused Patient Orientation: Person, Place - ADL/IADL Grooming: Minimal Assistance, Moderate Assistance Bathing-Upper Ext: Moderate Assistance Bathing-Lower Ext: Maximum Assistance Dressing-Upper Ext: Moderate Assistance Dressing-Lower Ext: Maximum Assistance - Sitting Balance Static Sitting: Supervision Dynamic Sitting: Contact Guard Assist - Transfers Wheelchair to Bed Transfers: Minimal Assistance Toilet Transfers: Moderate Assistance Tub Transfers: Moderate Assistance - Wheelchair Management Level of Assistance: Minimal Assistance Distance (ft.): 75 - Upper Extremity Status Right Upper Extremity Comment: WFL. decreased coordination Left Upper Extremity Comment: WFL - Pain Pain (assessed during therapy session): 0 - Insight/Carryover Insight/Carryover: Poor - Patient/Family Education Comment: CVA recovery, therapy schedule , use of call camilo, safety awareness - Assessment/Plan Assessment: Pt is a 77 year [place] male with dx: acute CVA with impaired visual acuity, double vision, and R hemianosia. *Precautions: cardiac, fall precautions, severe impaired visual deficits, w/c & bed alarm. Pt presents with the following impairments: impaired visual acuity, double vision, impaired visual scanning towards R , R inattention, impaired standing/sitting balance, impaired cognition: memory, attention, problem-solving/judgement, insight, impaired arousal, impaired activity tolerance/endurance, impaired safety awarenesswhich greatly impact on functional performance of self care, transfers/mobility. Currently-pt requries mod A for ub ADLs, and max A for LB ADLs, transfers with min -mod A with continous verbal, tactile and visual cueing for intitiation/completion/termination of tasks. pt demoing increased lethargy during sessions RN made aware. recommend D/C to [facility] post IP rehab stay. - Goals Timeframe: 1 week - Provider Occupational Therapist:: Patricia Veliz License Number: [id number] Speech Therapy - Consult Information Patient on Program: Yes Medical Diagnosis: CVA Treatment Diagnosis: severe cognitive-linguistic deficits - Assessment Expressive Language Impairment: Severe Receptive Language Impairment: Moderate Comment: mod-severe Problem Solving Impairment: Severe Memory Impairment: Severe - Plan Assessment: Bandar Gutierrez presents with severe cognitive-linguistic deficits characterized by impaired orientation, immediate and short-term recall, long-term recall of personal events/family, attention, insight, problem solving, reasoning, direction following, word retrieval, and ability to answer variet of yes/no and open-ended questions. Pt's reported that pt's cognitive and communication skills were WFL prior to this CVA. It should be noted that the pt presents with visual deficits which also impacted performance and is a large barrier to learning in addition to cognitive deficits. Pt would benefit from skilled ST for improved cognition and functional independence. Plan: Continue Speech/Language Therapy Frequency: 3-5 times per week Duration: 1 week Goals/Timeframe: Please see IE completed 10/13/18 for complete goals/POC Recommendations: ST 3-5x/week for improved cognition and independence - Provider Therapist: Stacie Sauceda License Number: [id number] Recreational Therapy - Participation Participation: Participates in Individual and/or Group Sessions - Attendance Attendance: 3-5 times per week - Activities Leisure Activities: Television - Socialization Level of Socialization: Initiates/interacts with caregivers but not with peer - Diversional Time Diversional Time: watching television, singing - Assessment Assessment/Plan: Pt is agreeable to participate in recreation therapy sessions following encouragement. Pt has participated in modified mitchel card task and number recognition/identification tasks. Pt's barriers to participation is decrease arousal level, decrease initiation, decrease command following, and decrease visual awareness. All task items are placed on the L side of pt with max verbal cues to attend to the L side and to visually scan towards midline and R side. Pt able to recall 's name and date of . Unable to recall diagnosis, place, and current date. Pt requires max verbal cues to attend to task and for redirection. Pt's is supportive and was encouraged to continue singing with pt while in the room with him to improve memory recall and initiation. Pt will continue to benefit from recreation therapy sessions throughout stay on unit. Problems Currently Limiting Participation: decrease command following, decrease initiation, decrease arousal level, decrease initiation, decrease color and number identification and recognition, decrease recall of prior conversations, double vision, visual deficits, decrease attention to task Goals and Time Frame: Pt will be encouraged to participate in 1:1 and group recreation therapy sessions 3-5x week to improve command following, direction following, attention to task, arousal level, and recalling facts on demand by date of discharge. - Provider Therapist: Liya Okeefe Nutrition - Current Diet Current Diet/Supplement/Feedings: Moderate consistent CHO heart healthy diet - Appetite Percent Meal Consumed: 75-100% - Assessment/Goals/Time Frame Assessments/Goals/Time Frame: Pt at moderate nutritional risk. goals: 1. Pt to consume at least 75% of each meal.(met, continue). 2. Maintain blood glucose between 70-180.(partially met, continue). Follow-up due on 10/27/2018 - Provider Provider: Crissy Tomlinson Case Management - Psychosocial Assessment Support Systems: [employer]- Psychological Interventions/Needs: Patient fluctuates between AAO and lethargic on a day-to-day basis. Patient is alert with periods of disorientation. Discharge Concerns: Patient is still displaying significant cognitive impairments. Patient/Family Meeting: CM met with patient and rehab team. Intervention/Goal/Outcome: 1. Goal: Supervision 2. Plan: [facility] vs home with home health 3. caregiver training with 4. continued emotional support 5. DME needs 6. follow up appointments 7. Tentative discharge date: 10/29/18 - Discharge Plan Discharge Plan: Outpatient rehab - Provider Provider: Gloria Guillen License Number: [id number] Rehabilitation Plan - Treatment Plan Treatment Plan: Physical Therapy, Occupational Therapy, Speech, Dietary, Patient/Family Education - Discharge Plan Estimated Date of Discharge: 10/29/18 Discharge to: Subacute
--- NOTE | 2018-10-21 13:11 | CP.PCM.PN ---
Subjective - Date & Time of Evaluation Date of Evaluation: 10/21/18 Time of Evaluation: 13:10 - Subjective Subjective: Patient seen in the room with his present no pain imaging of head noted extension of bleed, but clearing cognitively today a little discussed with neuro and will change ritalin to provigil Objective - Vital Signs/Intake and Output Vital Signs (last 24 hours): Temp Pulse Resp BP Pulse Ox 97.5 F L 60 20 143/83 100 10/21/18 11:43 10/21/18 11:43 10/21/18 11:43 10/21/18 11:43 10/21/18 07:37 - Medications Medications: Current Medications Acetaminophen (Tylenol 325mg Tab) 650 mg PO Q6 PRN PRN Reason: Fever >100.4 F Al Hydrox/Mg Hydrox/Simethicone (Maalox Plus 30 Ml) 30 ml PO Q6 PRN PRN Reason: Indigestion / Heartburn Allopurinol (Zyloprim) 100 mg PO DAILY [facility] Last Admin: 10/21/18 08:22 Dose: 100 mg Amantadine HCl (Amantadine 100 Mg Cap) 100 mg PO BID [facility] Last Admin: 10/21/18 08:21 Dose: 100 mg Atorvastatin Calcium (Lipitor) 10 mg PO HS [facility] Last Admin: 10/20/18 21:28 Dose: 10 mg Docusate Sodium (Colace) 100 mg PO BID [facility] Last Admin: 10/21/18 08:21 Dose: 100 mg Glipizide (Glucotrol Xl) 10 mg PO DAILY [facility] Last Admin: 10/21/18 08:22 Dose: 10 mg Home Med (Patient's Own Medication) 1 unit PO DAILY [facility] Last Admin: 10/21/18 08:21 Dose: 1 unit Hydrochlorothiazide (Microzide) 12.5 mg PO DAILY [facility] Last Admin: 10/21/18 08:22 Dose: 12.5 mg Insulin Human Lispro (Humalog) 0 units SC [facility]; Protocol Last Admin: 10/21/18 12:00 Dose: 3 unit Lactulose (Enulose) 20 gm PO DAILY PRN PRN Reason: Constipation Last Admin: 10/18/18 18:36 Dose: 20 gm Losartan Potassium (Cozaar) 25 mg PO DAILY [facility] Last Admin: 10/21/18 08:21 Dose: 25 mg Methylphenidate HCl (Ritalin) 2.5 mg PO DAILY [facility] Last Admin: 10/21/18 08:22 Dose: 2.5 mg Metoprolol Succinate (Toprol Xl) 50 mg PO DAILY [facility] Last Admin: 10/21/18 08:22 Dose: 50 mg Pantoprazole Sodium (Protonix Ec Tab) 40 mg PO DAILY [facility] Last Admin: 10/21/18 08:22 Dose: 40 mg Pioglitazone HCl (Actos) 15 mg PO DAILY [facility] Last Admin: 10/21/18 08:21 Dose: 15 mg - Labs Labs: 10/12/18 06:20 10/18/18 05:30
[2018-10-22] MEDS: Insulin Lispro (humaLOG) 100 Units/ml Inj SC SCH ×4 (07:10→21:01)
[2018-10-22] MEDS: GlipiZIDE 10 mg SR Tab PO SCH (08:40)
[2018-10-22] MEDS: Metoprolol Succinate 50 mg XL Tab PO SCH (08:40)
[2018-10-22] MEDS: Pantoprazole 40 mg EC Tab PO SCH (08:40)
[2018-10-22] MEDS: CENTRUM SILVER MULTIVITAMIN PO SCH (08:41)
--- NOTE | 2018-10-22 14:30 | CP.PCM.PN ---
<Layla Donovan - Last Filed: 10/22/18 15:17> Subjective - Date & Time of Evaluation Date of Evaluation: 10/22/18 Time of Evaluation: 14:28 - Subjective Subjective: Neurology Consultation Follow-Up Note: Mr. Richard was evaluated on Saturday by myself and Dr. Rowland at bedside with present. We were called on Saturday to re-evaluate the patient for increase periods of lethargy and sleepiness. Per nursing staff, patient has episodes during the day where he is very sleepy and does not want to eat or participate with activities-- also confirmed this. Mr. Richard is known to us from his recent admission to [facility], and we managed his recent CVA there. Attempted to evaluate the patient today, however, he was participating in therapy during time of rounds. He was observed to be awake, alert, engaging wi th the therapist and moving extremities. admits to some slight improvement in patient's daytime sleepiness. He is for potential discharge to [facility] rehab per the on 10/29/18. Objective - Vital Signs/Intake and Output Vital Signs (last 24 hours): Temp Pulse Resp BP Pulse Ox 96.9 F L 67 21 131/86 99 10/22/18 08:22 10/22/18 08:40 10/22/18 08:22 10/22/18 08:40 10/22/18 08:22 - Medications Medications: Current Medications Acetaminophen (Tylenol 325mg Tab) 650 mg PO Q6 PRN PRN Reason: Fever >100.4 F Al Hydrox/Mg Hydrox/Simethicone (Maalox Plus 30 Ml) 30 ml PO Q6 PRN PRN Reason: Indigestion / Heartburn Allopurinol (Zyloprim) 100 mg PO DAILY [facility] Last Admin: 10/22/18 08:40 Dose: 100 mg Amantadine HCl (Amantadine 100 Mg Cap) 100 mg PO BID [facility] Last Admin: 10/22/18 08:37 Dose: 100 mg Atorvastatin Calcium (Lipitor) 10 mg PO HS [facility] Last Admin: 10/21/18 21:37 Dose: 10 mg Docusate Sodium (Colace) 100 mg PO BID [facility] Last Admin: 10/22/18 08:37 Dose: 100 mg Glipizide (Glucotrol Xl) 10 mg PO DAILY [facility] Last Admin: 10/22/18 08:40 Dose: 10 mg Home Med (Patient's Own Medication) 1 unit PO DAILY [facility] Last Admin: 10/22/18 08:41 Dose: 1 unit Hydrochlorothiazide (Microzide) 12.5 mg PO DAILY [facility] Last Admin: 10/22/18 08:40 Dose: 12.5 mg Insulin Human Lispro (Humalog) 0 units SC ACHS [facility]; Protocol Last Admin: 10/22/18 12:00 Dose: 1 unit Lactulose (Enulose) 20 gm PO DAILY PRN PRN Reason: Constipation Last Admin: 10/18/18 18:36 Dose: 20 gm Losartan Potassium (Cozaar) 25 mg PO DAILY [facility] Last Admin: 10/22/18 08:39 Dose: 25 mg Metoprolol Succinate (Toprol Xl) 50 mg PO DAILY [facility] Last Admin: 10/22/18 08:40 Dose: 50 mg Modafinil (Provigil) 200 mg PO DAILY [facility] Last Admin: 10/22/18 08:43 Dose: 200 mg Pantoprazole Sodium (Protonix Ec Tab) 40 mg PO DAILY [facility] Last Admin: 10/22/18 08:40 Dose: 40 mg Pioglitazone HCl (Actos) 15 mg PO DAILY [facility] Last Admin: 10/22/18 08:37 Dose: 15 mg - Labs Labs: 10/12/18 06:20 10/18/18 05:30 - Constitutional Appears: Well, Non-toxic, No Acute Distress - Head Exam Head Exam: ATRAUMATIC, NORMAL INSPECTION, NORMOCEPHALIC - Respiratory Exam Respiratory Exam: NORMAL BREATHING PATTERN - Extremities Exam Additional comments: noted to be moving all extremities during therapy. Unable to personally assess at this time. - Neurological Exam Neurological Exam: Alert, Awake - Skin Skin Exam: Normal Color - Additional Findings Additional findings: Patient was participating in therapy during time of rounds. Noted to be moving all extremities during therapy. Unable to personally assess at this time. 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 Follow-up head CT advised. Stable age related neuro degenerative findings. -Overall, Mr. Richard seems to be doing well. He seems to be progressing and his level of consciousness is improved compared to our encounters with him at [facility]. His is very involved in his care. He was observed participating in therapy and engaging with the therapist. -Continue Provigil. -May continue to hold aspirin per Dr. Rowland based on the repeat CT Head results. We may repeat the CT Head in a few days to re-eval or sooner if patient's condition worsens. -Continue PT/OT; notes reviewed. -Please call neuro team with any acute changes in patient's condition or abnormal CT Head results. -We will continue to follow Mr. Richard throughout his stay in rehab. Case discussed with Dr. Rowland. Thank you. Status: Acute <Krishna Rowland - Last Filed: 10/24/18 00:41> Objective - Vital Signs/Intake and Output Vital Signs (last 24 hours): Temp Pulse Resp BP Pulse Ox 97.3 F L 68 20 143/78 98 10/23/18 21:00 10/23/18 21:00 10/23/18 21:00 10/23/18 21:00 10/23/18 21:00 - Medications Medications: Current Medications Acetaminophen (Tylenol 325mg Tab) 650 mg PO Q6 PRN PRN Reason: Fever >100.4 F Al Hydrox/Mg Hydrox/Simethicone (Maalox Plus 30 Ml) 30 ml PO Q6 PRN PRN Reason: Indigestion / Heartburn Allopurinol (Zyloprim) 100 mg PO DAILY [facility] Last Admin: 10/23/18 08:28 Dose: 100 mg Amantadine HCl (Amantadine 100 Mg Cap) 100 mg PO BID [facility] Last Admin: 10/23/18 17:10 Dose: 100 mg Atorvastatin Calcium (Lipitor) 10 mg PO HS [facility] Last Admin: 10/23/18 21:14 Dose: 10 mg Carbidopa/Levodopa (Sinemet) 1 tab PO TID@0700,1200,1600 [facility] Last Admin: 10/23/18 15:03 Dose: 1 tab Docusate Sodium (Colace) 100 mg PO BID [facility] Last Admin: 10/23/18 17:10 Dose: 100 mg Glipizide (Glucotrol Xl) 10 mg PO DAILY [facility] Last Admin: 10/23/18 08:27 Dose: 10 mg Home Med (Patient's Own Medication) 1 unit PO DAILY [facility] Last Admin: 10/23/18 08:28 Dose: 1 unit Hydrochlorothiazide (Microzide) 12.5 mg PO DAILY [facility] Last Admin: 10/23/18 08:27 Dose: 12.5 mg Insulin Human Lispro (Humalog) 0 units SC [facility]; Protocol Last Admin: 10/23/18 21:14 Dose: Not Given Lactulose (Enulose) 20 gm PO DAILY PRN PRN Reason: Constipation Last Admin: 10/22/18 16:51 Dose: 20 gm Losartan Potassium (Cozaar) 25 mg PO DAILY [facility] Last Admin: 10/23/18 08:27 Dose: 25 mg Metoprolol Succinate (Toprol Xl) 50 mg PO DAILY [facility] Last Admin: 10/23/18 08:28 Dose: 50 mg Mirtazapine (Remeron) 7.5 mg PO HS [facility] Last Admin: 10/23/18 21:14 Dose: 7.5 mg Modafinil (Provigil) 200 mg PO DAILY [facility] Last Admin: 10/23/18 08:30 Dose: 200 mg Pantoprazole Sodium (Protonix Ec Tab) 40 mg PO DAILY [facility] Last Admin: 10/23/18 08:28 Dose: 40 mg Pioglitazone HCl (Actos) 15 mg PO DAILY [facility] Last Admin: 10/23/18 08:26 Dose: 15 mg - Labs Labs: 10/12/18 06:20 10/18/18 05:30 Assessment and Plan - Assessment and Plan (Free Text) Assessment: I agree with assessment and plan. Thank you DR. rowland
--- NOTE | 2018-10-22 15:17 | CP.PCM.PN ---
Subjective - Date & Time of Evaluation Date of Evaluation: 10/22/18 Time of Evaluation: 12:30 - Subjective Subjective: Patient seen and examined bedside. Lying in bed in NAD . Hemodynamically stable, afebrile[facility] No acute issues overnight. Objective - Vital Signs/Intake and Output Vital Signs (last 24 hours): Temp Pulse Resp BP Pulse Ox 96.9 F L 67 21 131/86 99 10/22/18 08:22 10/22/18 08:40 10/22/18 08:22 10/22/18 08:40 10/22/18 08:22 - Medications Medications: Current Medications Acetaminophen (Tylenol 325mg Tab) 650 mg PO Q6 PRN PRN Reason: Fever >100.4 F Al Hydrox/Mg Hydrox/Simethicone (Maalox Plus 30 Ml) 30 ml PO Q6 PRN PRN Reason: Indigestion / Heartburn Allopurinol (Zyloprim) 100 mg PO DAILY [facility] Last Admin: 10/22/18 08:40 Dose: 100 mg Amantadine HCl (Amantadine 100 Mg Cap) 100 mg PO BID [facility] Last Admin: 10/22/18 08:37 Dose: 100 mg Atorvastatin Calcium (Lipitor) 10 mg PO HS [facility] Last Admin: 10/21/18 21:37 Dose: 10 mg Docusate Sodium (Colace) 100 mg PO BID [facility] Last Admin: 10/22/18 08:37 Dose: 100 mg Glipizide (Glucotrol Xl) 10 mg PO DAILY [facility] Last Admin: 10/22/18 08:40 Dose: 10 mg Home Med (Patient's Own Medication) 1 unit PO DAILY [facility] Last Admin: 10/22/18 08:41 Dose: 1 unit Hydrochlorothiazide (Microzide) 12.5 mg PO DAILY [facility] Last Admin: 10/22/18 08:40 Dose: 12.5 mg Insulin Human Lispro (Humalog) 0 units SC [facility]; Protocol Last Admin: 10/22/18 12:00 Dose: 1 unit Lactulose (Enulose) 20 gm PO DAILY PRN PRN Reason: Constipation Last Admin: 10/18/18 18:36 Dose: 20 gm Losartan Potassium (Cozaar) 25 mg PO DAILY [facility] Last Admin: 10/22/18 08:39 Dose: 25 mg Metoprolol Succinate (Toprol Xl) 50 mg PO DAILY [facility] Last Admin: 10/22/18 08:40 Dose: 50 mg Modafinil (Provigil) 200 mg PO DAILY [facility] Last Admin: 10/22/18 08:43 Dose: 200 mg Pantoprazole Sodium (Protonix Ec Tab) 40 mg PO DAILY [facility] Last Admin: 10/22/18 08:40 Dose: 40 mg Pioglitazone HCl (Actos) 15 mg PO DAILY [facility] Last Admin: 10/22/18 08:37 Dose: 15 mg - Labs Labs: 10/12/18 06:20 10/18/18 05:30 - Constitutional Appears: Non-toxic, No Acute Distress - Head Exam Head Exam: ATRAUMATIC, NORMOCEPHALIC - Eye Exam Eye Exam: EOMI, PERRL Pupil Exam: NORMAL ACCOMODATION - ENT Exam ENT Exam: Normal Exam - Neck Exam Neck Exam: Full ROM, Normal Inspection - Respiratory Exam Respiratory Exam: Clear to Ausculation Bilateral, NORMAL BREATHING PATTERN. absent: Rales, Rhonchi, Wheezes - Cardiovascular Exam Cardiovascular Exam: REGULAR RHYTHM, RRR, +S1, +S2. absent: JVD - GI/Abdominal Exam GI & Abdominal Exam: Soft, Normal Bowel Sounds. absent: Distended, Guarding, Tenderness, Rebound - Rectal Exam Rectal Exam: Deferred - Extremities Exam Extremities Exam: Full ROM, Normal Capillary Refill, Normal Inspection. absent: Pedal Edema - Back Exam Back Exam: NORMAL INSPECTION - Neurological Exam Neurological Exam: Alert, Awake Additional comments: expressive aphasia slow to reaction and response - Psychiatric Exam Psychiatric exam: Flat Affect - Skin Skin Exam: Dry, Intact, Normal Color, Warm Assessment and Plan - Assessment and Plan (Free Text) Assessment: 77 yo male with history of HTN, DM2, HLD and CVA was transferred from [facility] for admission to acute rehab for physical therapy. CT 10/11 showed complex hemorrhagic conversion with mass effect and minimal rightward midline shift and left cerebellar peduncle enchroachment. 1. Acute Left TANK OFFICER ischemic stroke with complex hemorrhagic conversion and mass effect Continue PT / OT/ speech therapy Continue Statin ,Amantadine and Provigil Repeat CT scan showed suspicious new hemorrhage ASA discontinued Follow upw ith neurology 2.Afib rate controlled continue beta blockers 3. HTN controlled on Metoprolol, Losartan, HCTZ 4. DM type II controlled continue Accuchecks, insulin coverage, diabetic diet on Glipizide, Pioglitazone 5. Gout on Allopurinol stable
[2018-10-23] MEDS: Insulin Lispro (humaLOG) 100 Units/ml Inj SC SCH ×4 (06:37→21:14)
[2018-10-23] MEDS: GlipiZIDE 10 mg SR Tab PO SCH (08:27)
[2018-10-23] MEDS: Metoprolol Succinate 50 mg XL Tab PO SCH (08:28)
[2018-10-23] MEDS: CENTRUM SILVER MULTIVITAMIN PO SCH (08:28)
[2018-10-23] MEDS: Pantoprazole 40 mg EC Tab PO SCH (08:28)
--- NOTE | 2018-10-23 11:39 | CP.PCM.PCO ---
Physician Communication Note - Physician Communication Note Physician Communication Note: Start Remeron 7.5 mg PO HS
--- NOTE | 2018-10-23 15:13 | CT ---
Date of service: 10/23/2018 PROCEDURE: CT HEAD WITHOUT CONTRAST. HISTORY: stroke COMPARISON: Comparison is made to the previous study dated 10/20/2018 TECHNIQUE: Axial computed tomography images were obtained through the head/brain without intravenous contrast. Radiation dose: Total exam DLP = 942.54 mGy-cm. This CT exam was performed using one or more of the following dose reduction techniques: Automated exposure control, adjustment of the mA and/or kV according to patient size, and/or use of iterative reconstruction technique. FINDINGS: HEMORRHAGE: Again noted is heterogeneous intraparenchymal hemorrhage at the left parietal occipital lobe consistent with hemorrhagic conversion of left METAL FRAMER infarction. There is a interval mild increase in the size of the surrounding edema since the previous exam. Otherwise no significant interval change. BRAIN: There is mass effect on the occipital horn of the left lateral ventricle from the parenchymal hemorrhage and adjacent edema. There is a focal encephalomalacia at the left frontal lobe again noted suggestive of old infarct. Small focal encephalomalacia at the right cerebellum is also again noted. Volume loss and chronic microvascular white matter ischemic disease are again noted. VENTRICLES: Unremarkable. No hydrocephalus. CALVARIUM: Unremarkable. PARANASAL SINUSES: Unremarkable as visualized. No significant inflammatory changes. MASTOID AIR CELLS: Unremarkable as visualized. No inflammatory changes. OTHER FINDINGS: None. IMPRESSION: Interval mild increase in the size of the surrounding edema around the parenchymal hemorrhage/hemorrhagic conversion of left METAL FRAMER infarction. Otherwise no significant interval changes noted since the prior study. Stable parenchymal hemorrhage surrounding with edema at the posterior left parietal occipital lobe again noted. Foci of encephalomalacia at the left frontal lobe and right cerebellum.
--- NOTE | 2018-10-23 16:26 | CP.PCM.PN ---
<Layla Donovan - Last Filed: 10/23/18 16:28> Subjective - Date & Time of Evaluation Date of Evaluation: 10/23/18 Time of Evaluation: 16:00 - Subjective Subjective: Neurology Consultation Follow-Up Note: Mr. Richard was evaluated today during OT session. Per nursing staff, OT and pt's , he is more sleepy and drowsy than yesterday. Based on my previous encounters with Mr. Richard, he does have periods of drowsiness and lethargy intermittently, as well as periods of lucidness and clarity. He is presently being treated with Provigil and Sinemet was started today. Today he admits that he does not feel well. He complains of feeling tired and dizzy all day. Denies any headache, visual changes, chest pain, shortness of breath, nausea/vomiting. He had a repeat CT head this afternoon. Objective - Vital Signs/Intake and Output Vital Signs (last 24 hours): Temp Pulse Resp BP Pulse Ox 98 F 66 20 130/66 98 10/23/18 09:19 10/23/18 09:19 10/23/18 09:19 10/23/18 09:19 10/23/18 09:19 - Medications Medications: Current Medications Acetaminophen (Tylenol 325mg Tab) 650 mg PO Q6 PRN PRN Reason: Fever >100.4 F Al Hydrox/Mg Hydrox/Simethicone (Maalox Plus 30 Ml) 30 ml PO Q6 PRN PRN Reason: Indigestion / Heartburn Allopurinol (Zyloprim) 100 mg PO DAILY [facility] Last Admin: 10/23/18 08:28 Dose: 100 mg Amantadine HCl (Amantadine 100 Mg Cap) 100 mg PO BID [facility] Last Admin: 10/23/18 08:27 Dose: 100 mg Atorvastatin Calcium (Lipitor) 10 mg PO HS [facility] Last Admin: 10/22/18 21:01 Dose: 10 mg Carbidopa/Levodopa (Sinemet) 1 tab PO TID@0700,1200,1600 [facility] Last Admin: 10/23/18 15:03 Dose: 1 tab Docusate Sodium (Colace) 100 mg PO BID [facility] Last Admin: 10/23/18 08:27 Dose: 100 mg Glipizide (Glucotrol Xl) 10 mg PO DAILY [facility] Last Admin: 10/23/18 08:27 Dose: 10 mg Home Med (Patient's Own Medication) 1 unit PO DAILY [facility] Last Admin: 10/23/18 08:28 Dose: 1 unit Hydrochlorothiazide (Microzide) 12.5 mg PO DAILY [facility] Last Admin: 10/23/18 08:27 Dose: 12.5 mg Insulin Human Lispro (Humalog) 0 units SC ACHS [facility]; Protocol Last Admin: 10/23/18 11:58 Dose: 1 unit Lactulose (Enulose) 20 gm PO DAILY PRN PRN Reason: Constipation Last Admin: 10/22/18 16:51 Dose: 20 gm Losartan Potassium (Cozaar) 25 mg PO DAILY [facility] Last Admin: 10/23/18 08:27 Dose: 25 mg Metoprolol Succinate (Toprol Xl) 50 mg PO DAILY [facility] Last Admin: 10/23/18 08:28 Dose: 50 mg Mirtazapine (Remeron) 7.5 mg PO [facility] Modafinil (Provigil) 200 mg PO DAILY [facility] Last Admin: 10/23/18 08:30 Dose: 200 mg Pantoprazole Sodium (Protonix Ec Tab) 40 mg PO DAILY [facility] Last Admin: 10/23/18 08:28 Dose: 40 mg Pioglitazone HCl (Actos) 15 mg PO DAILY [facility] Last Admin: 10/23/18 08:26 Dose: 15 mg - Labs Labs: 10/12/18 06:20 10/18/18 05:30 - Constitutional Appears: Other (drowsy; limited 2/2 observed during OT session. ) - Head Exam Head Exam: ATRAUMATIC, NORMAL INSPECTION, NORMOCEPHALIC - Eye Exam Eye Exam: EOMI, Normal appearance - ENT Exam ENT Exam: Mucous Membranes Moist - Neck Exam Neck Exam: Full ROM - Respiratory Exam Respiratory Exam: NORMAL BREATHING PATTERN - Extremities Exam Additional comments: limited examine 2/2 observed pt during OT session. - Neurological Exam Neurological Exam: Abnormal Gait, Alert, Awake Additional comments: limited examine 2/2 observed pt during OT session. Pt is drowsy however he is answering all questions appropriately. Speech clear and fluid Moving extremities independently; + weakness BLE - Psychiatric Exam Additional comments: drowsy - Skin Skin Exam: Normal Color Assessment and Plan (1) CVA (cerebral vascular accident) Assessment & Plan: Imaging: -CT Head without contrast (10/23/18): Interval mild increase in the size of the surrounding edema around the parenchymal hemorrhage/hemorrhagic conversion of left ENVIRONMENTAL SOLUTIONS ENGINEER infarction. Otherwise no significant interval changes noted since the prior study. Stable parenchymal hemorrhage surrounding with edema at the post erior left parietal occipital lobe again noted. Foci of encephalomalacia at the left frontal lobe and right cerebellum. -CT Head without contrast (10/20/18): Prior site of hemorrhagic conversion at t he left ENVIRONMENTAL SOLUTIONS ENGINEER ischemic infarct is suspicious for new interval hemorrhage at this time with no signal interval change in overall mass effect currently. Follow-up head CT advised. Stable age related neuro degenerative findings. -Mr. Richard today was observed during his OT session. He is more drowsy than usual. -Discussed this with pt's and she also validates the drowsiness today more than usual, as does the OT. -Repeat CT Head reviewed with Dr. Rowland. -Sinemet ordered by Dr. Rowland this afternoon. -VEEG x24 hours ordered to be started tonight---r/o seizure activity 2/2 to recent left ENVIRONMENTAL SOLUTIONS ENGINEER infarct with hemorrhagic conversion. -Continue Provigil. -Continue to hold aspirin per Dr. Rowland based on the repeat CT Head results. -We will repeat CT Head without contrast in 2 days (ordered for 10/25/18). -Continue PT/OT; notes reviewed. -Please call neuro team with any acute changes in patient's condition if problems getting the VEEG to be started tonight. -We will continue to follow Mr. Richard throughout his stay in rehab. Case discussed with Dr. Rowland. Status: Acute <Randall Rowlandutami - Last Filed: 10/23/18 21:48> Objective - Vital Signs/Intake and Output Vital Signs (last 24 hours): Temp Pulse Resp BP Pulse Ox 97.3 F L 68 20 143/78 98 10/23/18 21:00 10/23/18 21:00 10/23/18 21:00 10/23/18 21:00 10/23/18 21:00 - Medications Medications: Current Medications Acetaminophen (Tylenol 325mg Tab) 650 mg PO Q6 PRN PRN Reason: Fever >100.4 F Al Hydrox/Mg Hydrox/Simethicone (Maalox Plus 30 Ml) 30 ml PO Q6 PRN PRN Reason: Indigestion / Heartburn Allopurinol (Zyloprim) 100 mg PO DAILY [facility] Last Admin: 10/23/18 08:28 Dose: 100 mg Amantadine HCl (Amantadine 100 Mg Cap) 100 mg PO BID [facility] Last Admin: 10/23/18 17:10 Dose: 100 mg Atorvastatin Calcium (Lipitor) 10 mg PO HS [facility] Last Admin: 10/23/18 21:14 Dose: 10 mg Carbidopa/Levodopa (Sinemet) 1 tab PO TID@0700,1200,1600 [facility] Last Admin: 10/23/18 15:03 Dose: 1 tab Docusate Sodium (Colace) 100 mg PO BID [facility] Last Admin: 10/23/18 17:10 Dose: 100 mg Glipizide (Glucotrol Xl) 10 mg PO DAILY [facility] Last Admin: 10/23/18 08:27 Dose: 10 mg Home Med (Patient's Own Medication) 1 unit PO DAILY [facility] Last Admin: 10/23/18 08:28 Dose: 1 unit Hydrochlorothiazide (Microzide) 12.5 mg PO DAILY [facility] Last Admin: 10/23/18 08:27 Dose: 12.5 mg Insulin Human Lispro (Humalog) 0 units SC [facility]; Protocol Last Admin: 10/23/18 21:14 Dose: Not Given Lactulose (Enulose) 20 gm PO DAILY PRN PRN Reason: Constipation Last Admin: 10/22/18 16:51 Dose: 20 gm Losartan Potassium (Cozaar) 25 mg PO DAILY [facility] Last Admin: 10/23/18 08:27 Dose: 25 mg Metoprolol Succinate (Toprol Xl) 50 mg PO DAILY [facility] Last Admin: 10/23/18 08:28 Dose: 50 mg Mirtazapine (Remeron) 7.5 mg PO HS [facility] Last Admin: 10/23/18 21:14 Dose: 7.5 mg Modafinil (Provigil) 200 mg PO DAILY [facility] Last Admin: 10/23/18 08:30 Dose: 200 mg Pantoprazole Sodium (Protonix Ec Tab) 40 mg PO DAILY [facility] Last Admin: 10/23/18 08:28 Dose: 40 mg Pioglitazone HCl (Actos) 15 mg PO DAILY [facility] Last Admin: 10/23/18 08:26 Dose: 15 mg - Labs Labs: 10/12/18 06:20 10/18/18 05:30 Assessment and Plan - Assessment and Plan (Free Text) Assessment: Agree with above assessment and plan. Patient is sleepier than usual but this may be seizures secondary to new interval hemorrhage. We will obtain Video EEg to assess further. In addition, we may start antiepileptic to cover for possible seizures. THank you Dr. rowland Neurology
--- NOTE | 2018-10-23 17:59 | CP.PCM.PN ---
Subjective - Date & Time of Evaluation Date of Evaluation: 10/23/18 Time of Evaluation: 17:58 - Subjective Subjective: Patient seen in the room and doing well NAD no abdominal pain alert and interactive continue current care Objective - Vital Signs/Intake and Output Vital Signs (last 24 hours): Temp Pulse Resp BP Pulse Ox 98 F 66 20 130/66 98 10/23/18 09:19 10/23/18 09:19 10/23/18 09:19 10/23/18 09:19 10/23/18 09:19 - Medications Medications: Current Medications Acetaminophen (Tylenol 325mg Tab) 650 mg PO Q6 PRN PRN Reason: Fever >100.4 F Al Hydrox/Mg Hydrox/Simethicone (Maalox Plus 30 Ml) 30 ml PO Q6 PRN PRN Reason: Indigestion / Heartburn Allopurinol (Zyloprim) 100 mg PO DAILY [facility] Last Admin: 10/23/18 08:28 Dose: 100 mg Amantadine HCl (Amantadine 100 Mg Cap) 100 mg PO BID [facility] Last Admin: 10/23/18 17:10 Dose: 100 mg Atorvastatin Calcium (Lipitor) 10 mg PO HS [facility] Last Admin: 10/22/18 21:01 Dose: 10 mg Carbidopa/Levodopa (Sinemet) 1 tab PO TID@0700,1200,1600 [facility] Last Admin: 10/23/18 15:03 Dose: 1 tab Docusate Sodium (Colace) 100 mg PO BID [facility] Last Admin: 10/23/18 17:10 Dose: 100 mg Glipizide (Glucotrol Xl) 10 mg PO DAILY [facility] Last Admin: 10/23/18 08:27 Dose: 10 mg Home Med (Patient's Own Medication) 1 unit PO DAILY [facility] Last Admin: 10/23/18 08:28 Dose: 1 unit Hydrochlorothiazide (Microzide) 12.5 mg PO DAILY [facility] Last Admin: 10/23/18 08:27 Dose: 12.5 mg Insulin Human Lispro (Humalog) 0 units SC [facility]; Protocol Last Admin: 10/23/18 17:10 Dose: 1 unit Lactulose (Enulose) 20 gm PO DAILY PRN PRN Reason: Constipation Last Admin: 10/22/18 16:51 Dose: 20 gm Losartan Potassium (Cozaar) 25 mg PO DAILY [facility] Last Admin: 10/23/18 08:27 Dose: 25 mg Metoprolol Succinate (Toprol Xl) 50 mg PO DAILY [facility] Last Admin: 10/23/18 08:28 Dose: 50 mg Mirtazapine (Remeron) 7.[address] [facility] Modafinil (Provigil) 200 mg PO DAILY [facility] Last Admin: 10/23/18 08:30 Dose: 200 mg Pantoprazole Sodium (Protonix Ec Tab) 40 mg PO DAILY [facility] Last Admin: 10/23/18 08:28 Dose: 40 mg Pioglitazone HCl (Actos) 15 mg PO DAILY [facility] Last Admin: 10/23/18 08:26 Dose: 15 mg - Labs Labs: 10/12/18 06:20 10/18/18 05:30
[2018-10-24] MEDS: Insulin Lispro (humaLOG) 100 Units/ml Inj SC SCH ×4 (06:48→21:36)
--- NOTE | 2018-10-24 08:03 | CP.PCM.CON ---
History of Present Illness - History of Present Illness History of Present Illness: Psychiatry consult follow-up note CC: S/p CVA; evaluate for depression HPI: 77 yo male w/ h/o HTN, DM, HLD, h/o CVAs, transferred from [facility] for acute rehabilitation. Patient has constricted affect, poverty of speech and answers questions minimally due to cognitive deficits. Patient does report feeling depressed at this time w/ low energy/motivation. No AH/VH/SI/HI. Patient agreeable to treatment with antidepressants at this time. PMHx: HTN, DM, HLD, h/o CVAs ALL: NKDA SHx: Lives w/ , denies drugs/etoh/cig use Impression: 77 yo male w/ major neurocognitive impairment and adjustment disorder w/ depressed mood. -Remeron 7.5 mg PO HS -No acute inpatient psychiatric admission indicated at this time Past Patient History - Infectious Disease Hx of Infectious Diseases: None - Tetanus Immunizations Tetanus Immunization: Unknown - Past Medical History & Family History Past Medical History?: Yes Past Family History: Reviewed and not pertinent - Past Social History Smoking Status: Never Smoked Chewing Tobacco Use: No Cigar Use: No Alcohol: None Home Situation {Lives}: With Family Domestic Violence: Negative - CARDIAC Hx Cardiac Disorders: Yes Hx Hypercholesterolemia: Yes Hx Hypertension: Yes - PULMONARY Hx Respiratory Disorders: No - NEUROLOGICAL HX Cerebrovascular Accident: Yes (~2 years ago as per pt's ) - HEENT Hx HEENT Problems: Yes Other/Comment: wear reading eyeglasses - RENAL Hx Chronic Kidney Disease: No - ENDOCRINE/METABOLIC Hx Diabetes Mellitus Type 2: Yes - HEMATOLOGICAL/ONCOLOGICAL Hx Blood Disorders: No - INTEGUMENTARY Hx Dermatological Problems: No - MUSCULOSKELETAL/RHEUMATOLOGICAL Hx Falls: No - GASTROINTESTINAL Hx Gastrointestinal Disorders: No - GENITOURINARY/GYNECOLOGICAL Hx Genitourinary Disorders: No - PSYCHIATRIC Hx Substance Use: No - SURGICAL HISTORY Hx Surgeries: No - ANESTHESIA Hx Anesthesia: No Meds Allergies/Adverse Reactions: Allergies Allergy/AdvReac Type Severity Reaction Status Date / Time No Known Allergies Allergy Verified 10/11/18 20:12 - Medications Medications: Current Medications Acetaminophen (Tylenol 325mg Tab) 650 mg PO Q6 PRN PRN Reason: Fever >100.4 F Al Hydrox/Mg Hydrox/Simethicone (Maalox Plus 30 Ml) 30 ml PO Q6 PRN PRN Reason: Indigestion / Heartburn Allopurinol (Zyloprim) 100 mg PO DAILY [facility] Last Admin: 10/23/18 08:28 Dose: 100 mg Amantadine HCl (Amantadine 100 Mg Cap) 100 mg PO BID [facility] Last Admin: 10/23/18 17:10 Dose: 100 mg Atorvastatin Calcium (Lipitor) 10 mg PO HS [facility] Last Admin: 10/23/18 21:14 Dose: 10 mg Carbidopa/Levodopa (Sinemet) 1 tab PO TID@0700,1200,1600 [facility] Last Admin: 10/24/18 06:48 Dose: 1 tab Docusate Sodium (Colace) 100 mg PO BID [facility] Last Admin: 10/23/18 17:10 Dose: 100 mg Glipizide (Glucotrol Xl) 10 mg PO DAILY [facility] Last Admin: 10/23/18 08:27 Dose: 10 mg Home Med (Patient's Own Medication) 1 unit PO DAILY [facility] Last Admin: 10/23/18 08:28 Dose: 1 unit Hydrochlorothiazide (Microzide) 12.5 mg PO DAILY [facility] Last Admin: 10/23/18 08:27 Dose: 12.5 mg Insulin Human Lispro (Humalog) 0 units SC [facility]; Protocol Last Admin: 10/24/18 06:48 Dose: Not Given Lactulose (Enulose) 20 gm PO DAILY PRN PRN Reason: Constipation Last Admin: 10/22/18 16:51 Dose: 20 gm Losartan Potassium (Cozaar) 25 mg PO DAILY [facility] Last Admin: 10/23/18 08:27 Dose: 25 mg Metoprolol Succinate (Toprol Xl) 50 mg PO DAILY [facility] Last Admin: 10/23/18 08:28 Dose: 50 mg Mirtazapine (Remeron) 7.5 mg PO HS [facility] Last Admin: 10/23/18 21:14 Dose: 7.5 mg Modafinil (Provigil) 200 mg PO DAILY [facility] Last Admin: 10/23/18 08:30 Dose: 200 mg Pantoprazole Sodium (Protonix Ec Tab) 40 mg PO DAILY [facility] Last Admin: 10/23/18 08:28 Dose: 40 mg Pioglitazone HCl (Actos) 15 mg PO DAILY [facility] Last Admin: 10/23/18 08:26 Dose: 15 mg Results - Vital Signs Recent Vital Signs: Last Vital Signs Temp 97.3 F L 11/29/18 21:00 Pulse 68 10/23/18 21:00 Resp 20 10/23/18 21:00 BP 143/78 10/23/18 21:00 Pulse Ox 98 10/23/18 21:00 - Labs Result Diagrams: 10/12/18 06:20 10/18/18 05:30 Labs: Laboratory Results - last 24 hr 10/23/18 10/23/18 10/23/18 11:55 16:43 20:16 POC Glucose (mg/dL) 195 H 181 H 162 H 10/24/18 06:45 POC Glucose (mg/dL) 88
[2018-10-24] MEDS: Metoprolol Succinate 50 mg XL Tab PO SCH (08:11)
[2018-10-24] MEDS: GlipiZIDE 10 mg SR Tab PO SCH (08:13)
[2018-10-24] MEDS: Pantoprazole 40 mg EC Tab PO SCH (09:11)
[2018-10-24] MEDS: CENTRUM SILVER MULTIVITAMIN PO SCH (09:11)
--- NOTE | 2018-10-24 16:04 | CP.PCM.PN ---
Subjective - Date & Time of Evaluation Date of Evaluation: 10/24/18 Time of Evaluation: 15:00 - Subjective Subjective: Patient seen and examined with feeding him. Still appeared depressed but denied it. Objective - Vital Signs/Intake and Output Vital Signs (last 24 hours): Temp Pulse Resp BP Pulse Ox 98 F 72 20 112/62 97 10/24/18 08:09 10/24/18 13:18 10/24/18 08:09 10/24/18 13:18 10/24/18 13:18 - Medications Medications: Current Medications Acetaminophen (Tylenol 325mg Tab) 650 mg PO Q6 PRN PRN Reason: Fever >100.4 F Al Hydrox/Mg Hydrox/Simethicone (Maalox Plus 30 Ml) 30 ml PO Q6 PRN PRN Reason: Indigestion / Heartburn Allopurinol (Zyloprim) 100 mg PO DAILY [facility] Last Admin: 10/24/18 08:12 Dose: 100 mg Amantadine HCl (Amantadine 100 Mg Cap) 100 mg PO BID [facility] Last Admin: 10/24/18 08:11 Dose: 100 mg Atorvastatin Calcium (Lipitor) 10 mg PO [facility] Last Admin: 10/23/18 21:14 Dose: 10 mg Carbidopa/Levodopa (Sinemet) 1 tab PO TID@0700,1200,1600 [facility] Last Admin: 10/24/18 12:53 Dose: 1 tab Docusate Sodium (Colace) 100 mg PO BID [facility] Last Admin: 10/24/18 08:12 Dose: 100 mg Glipizide (Glucotrol Xl) 10 mg PO DAILY [facility] Last Admin: 10/24/18 08:13 Dose: 10 mg Home Med (Patient's Own Medication) 1 unit PO DAILY [facility] Last Admin: 10/24/18 09:11 Dose: 1 unit Hydrochlorothiazide (Microzide) 12.5 mg PO DAILY [facility] Last Admin: 10/24/18 08:13 Dose: 12.5 mg Insulin Human Lispro (Humalog) 0 units SC [facility]; Protocol Last Admin: 10/24/18 11:30 Dose: 3 unit Lactulose (Enulose) 20 gm PO DAILY PRN PRN Reason: Constipation Last Admin: 10/22/18 16:51 Dose: 20 gm Losartan Potassium (Cozaar) 25 mg PO DAILY [facility] Last Admin: 10/24/18 08:11 Dose: 25 mg Metoprolol Succinate (Toprol Xl) 50 mg PO DAILY [facility] Last Admin: 10/24/18 08:11 Dose: 50 mg Mirtazapine (Remeron) 7.5 mg PO HS [facility] Last Admin: 10/23/18 21:14 Dose: 7.5 mg Modafinil (Provigil) 200 mg PO DAILY [facility] Last Admin: 10/24/18 00:28 Dose: 200 mg Pantoprazole Sodium (Protonix Ec Tab) 40 mg PO DAILY [facility] Last Admin: 10/24/18 09:11 Dose: 40 mg Pioglitazone HCl (Actos) 15 mg PO DAILY [facility] Last Admin: 10/24/18 08:11 Dose: 15 mg - Labs Labs: 10/12/18 06:20 10/18/18 05:30 - Constitutional Appears: No Acute Distress - Head Exam Head Exam: ATRAUMATIC - Eye Exam Eye Exam: absent: Scleral icterus - ENT Exam ENT Exam: Mucous Membranes Moist - Neck Exam Neck Exam: absent: Meningismus - Respiratory Exam Respiratory Exam: absent: Rales, Rhonchi, Wheezes, Respiratory Distress - Cardiovascular Exam Cardiovascular Exam: REGULAR RHYTHM, +S1, +S2 - GI/Abdominal Exam GI & Abdominal Exam: Soft. absent: Tenderness - Rectal Exam Rectal Exam: Deferred - Back Exam Back Exam: NORMAL INSPECTION - Neurological Exam Neurological Exam: Alert, Oriented x3 - Psychiatric Exam Psychiatric exam: Normal Affect - Skin Skin Exam: Dry, Intact Assessment and Plan - Assessment and Plan (Free Text) Assessment: 77 yo male with history of HTN, DM2, HLD and CVA was transferred from [facility] for admission to acute rehab for physical therapy. CT 10/11 showed complex hemorrhagic conversion with mass effect and minimal rightward midline shift and left cerebellar peduncle enchroachment. 1. Acute Left HOSPICE/[employer] HEALTH AIDE ischemic stroke with complex hemorrhagic conversion and mass effect Continue PT / OT/ speech therapy Continue Statin and Amantadine rpt CT scan: suspicious new hemorrhage will dc ASA 2. Depression psyche consult appreciated with Dr Samuel Fernandes 7.5mg PO HS 3. Afib rate controlled continue Metoprolol Succinate 4. HTN BP stable on Metoprolol, Losartan and HCTZ 5. DM type II BS relatively uncontrolled continue Accuchecks, insulin coverage, diabetic diet continue Glipizide SR 10mg PO daily increase Pioglitazone to 30mg PO daily repeat BMP in am 5. Gout on Allopurinol stable
--- NOTE | 2018-10-24 16:06 | CP.PCM.PN ---
Subjective - Date & Time of Evaluation Date of Evaluation: 10/24/18 Time of Evaluation: 16:04 - Subjective Subjective: Neurology Consultation Follow-Up Note: Mr. Richard was seen and evaluated today at bedside with his . Today he is more alert. He engages in the interview and exam today and expresses that she noticed a positive change in his mood compared to yesterday. No lethargy noted by her today. He denies headache, dizziness, visual changes, lethargy/fatigue, chest pain, shortness of breath, nausea/vomiting. Patient unable to follow all commands during exam. EEG done per nursing staff. No acute overnight events noted per nursing staff. Objective - Vital Signs/Intake and Output Vital Signs (last 24 hours): Temp Pulse Resp BP Pulse Ox 98 F 72 20 112/62 97 10/24/18 08:09 10/24/18 13:18 10/24/18 08:09 10/24/18 13:18 10/24/18 13:18 - Medications Medications: Current Medications Acetaminophen (Tylenol 325mg Tab) 650 mg PO Q6 PRN PRN Reason: Fever >100.4 F Al Hydrox/Mg Hydrox/Simethicone (Maalox Plus 30 Ml) 30 ml PO Q6 PRN PRN Reason: Indigestion / Heartburn Allopurinol (Zyloprim) 100 mg PO DAILY [facility] Last Admin: 10/24/18 08:12 Dose: 100 mg Amantadine HCl (Amantadine 100 Mg Cap) 100 mg PO BID [facility] Last Admin: 10/24/18 08:11 Dose: 100 mg Atorvastatin Calcium (Lipitor) 10 mg PO HS [facility] Last Admin: 10/23/18 21:14 Dose: 10 mg Carbidopa/Levodopa (Sinemet) 1 tab PO TID@0700,1200,1600 [facility] Last Admin: 10/24/18 12:53 Dose: 1 tab Docusate Sodium (Colace) 100 mg PO BID [facility] Last Admin: 10/24/18 08:12 Dose: 100 mg Glipizide (Glucotrol Xl) 10 mg PO DAILY [facility] Last Admin: 10/24/18 08:13 Dose: 10 mg Home Med (Patient's Own Medication) 1 unit PO DAILY [facility] Last Admin: 10/24/18 09:11 Dose: 1 unit Hydrochlorothiazide (Microzide) 12.5 mg PO DAILY [facility] Last Admin: 10/24/18 08:13 Dose: 12.5 mg Insulin Human Lispro (Humalog) 0 units SC [facility]; Protocol Last Admin: 10/24/18 11:30 Dose: 3 unit Lactulose (Enulose) 20 gm PO DAILY PRN PRN Reason: Constipation Last Admin: 10/22/18 16:51 Dose: 20 gm Losartan Potassium (Cozaar) 25 mg PO DAILY [facility] Last Admin: 10/24/18 08:11 Dose: 25 mg Metoprolol Succinate (Toprol Xl) 50 mg PO DAILY [facility] Last Admin: 10/24/18 08:11 Dose: 50 mg Mirtazapine (Remeron) 7.5 mg PO HS [facility] Last Admin: 10/23/18 21:14 Dose: 7.5 mg Modafinil (Provigil) 200 mg PO DAILY [facility] Last Admin: 10/24/18 00:28 Dose: 200 mg Pantoprazole Sodium (Protonix Ec Tab) 40 mg PO DAILY [facility] Last Admin: 10/24/18 09:11 Dose: 40 mg Pioglitazone HCl (Actos) 15 mg PO DAILY [facility] Last Admin: 10/24/18 08:11 Dose: 15 mg - Labs Labs: 10/12/18 06:20 10/18/18 05:30 - Constitutional Appears: Well, Non-toxic, No Acute Distress - Head Exam Head Exam: ATRAUMATIC, NORMAL INSPECTION, NORMOCEPHALIC - Eye Exam Eye Exam: EOMI, Normal appearance, PERRL Pupil Exam: PERRL - ENT Exam ENT Exam: Mucous Membranes Moist - Neck Exam Neck Exam: Full ROM - Respiratory Exam Respiratory Exam: NORMAL BREATHING PATTERN - Extremities Exam Extremities Exam: Full ROM Additional comments: from noted to all extremities, however, generalized weakness noted. - Neurological Exam Neurological Exam: Abnormal Gait (unsteady), Alert, Awake Neuro motor strength exam: Left Upper Extremity: 4, Right Upper Extremity: 4, Left Lower Extremity: 3, Right Lower Extremity: 3 Additional comments: speech clear and fluid. Sensation equal and intact b/l. Reflexes brisk b/l. Pt could not follow commands to test fine motor. Could not follow commands to finger to nose test. Able to move all extremities, however, generalized weakness noted. - Psychiatric Exam Psychiatric exam: Normal Affect, Normal Mood - Skin Skin Exam: Normal Color Assessment and Plan (1) CVA (cerebral vascular accident) Assessment & Plan: Imaging: -CT Head without contrast (10/23/18): Interval mild increase in the size of the surrounding edema around the parenchymal hemorrhage/hemorrhagic conversion of left [employer] infarction. Otherwise no significant interval changes noted since the prior study. Stable parenchymal hemorrhage surrounding with edema at the posterior left parietal occipital lobe again noted. Foci of encephalomalacia at the left frontal lobe and right cerebellum. -CT Head without contrast (10/20/18): Prior site of hemorrhagic conversion at the left [place] [employer] ischemic infarct is suspicious for new interval hemorrhage at this time with no signal interval change in overall mass effect currently. Follow-up head CT advised. Stable age related neuro degenerative findings. -Mr. Richard today was more alert compared to yesterday. He does have periods of lucidness and periods of drowsiness, which have both been present for several weeks. -Repeat CT Head ordered for tomorrow, 10/25/18, to evaluate the mild increase in the size of the surrounding edema around the parenchymal hemorrhage/ hemorrhagic conversion of left [place] infarction. -Sinemet started 10/23/18. -EEG done today to r/o seizure activity 2/2 to recent left [place] [place] [employer] infarct with hemorrhagic conversion--pending results. Please note, routine EEG can only be done on rehab floor per nursing. -Continue Provigil. -Continue to hold aspirin per Dr. Glover based on the repeat CT Head results from 10/23/18. . -Continue PT/OT; notes reviewed. -Please call neuro team with any acute changes in patient's condition or abnormal repeat CT Head 10/25/18. -We will continue to follow Mr. Richard throughout his stay in rehab. Case discussed with Dr. Glover. Status: Acute
--- NOTE | 2018-10-24 17:18 | CP.PCM.PN ---
Subjective - Date & Time of Evaluation Date of Evaluation: 10/24/18 Time of Evaluation: 17:17 - Subjective Subjective: Patient seen in the room with present denies sob/cp flat affect as usual no joint pain fair UE strength continue current care Objective - Vital Signs/Intake and Output Vital Signs (last 24 hours): Temp Pulse Resp BP Pulse Ox 98 F 72 20 112/62 97 10/24/18 08:09 10/24/18 13:18 10/24/18 08:09 10/24/18 13:18 10/24/18 13:18 - Medications Medications: Current Medications Acetaminophen (Tylenol 325mg Tab) 650 mg PO Q6 PRN PRN Reason: Fever >100.4 F Al Hydrox/Mg Hydrox/Simethicone (Maalox Plus 30 Ml) 30 ml PO Q6 PRN PRN Reason: Indigestion / Heartburn Allopurinol (Zyloprim) 100 mg PO DAILY [facility] Last Admin: 10/24/18 08:12 Dose: 100 mg Amantadine HCl (Amantadine 100 Mg Cap) 100 mg PO BID [facility] Last Admin: 10/24/18 08:11 Dose: 100 mg Atorvastatin Calcium (Lipitor) 10 mg PO HS [facility] Last Admin: 10/23/18 21:14 Dose: 10 mg Carbidopa/Levodopa (Sinemet) 1 tab PO TID@0700,1200,1600 [facility] Last Admin: 10/24/18 12:53 Dose: 1 tab Docusate Sodium (Colace) 100 mg PO BID [facility] Last Admin: 10/24/18 08:12 Dose: 100 mg Glipizide (Glucotrol Xl) 10 mg PO DAILY [facility] Last Admin: 10/24/18 08:13 Dose: 10 mg Home Med (Patient's Own Medication) 1 unit PO DAILY [facility] Last Admin: 10/24/18 09:11 Dose: 1 unit Hydrochlorothiazide (Microzide) 12.5 mg PO DAILY [facility] Last Admin: 10/24/18 08:13 Dose: 12.5 mg Insulin Human Lispro (Humalog) 0 units SC [facility]; Protocol Last Admin: 10/24/18 11:30 Dose: 3 unit Lactulose (Enulose) 20 gm PO DAILY PRN PRN Reason: Constipation Last Admin: 10/22/18 16:51 Dose: 20 gm Losartan Potassium (Cozaar) 25 mg PO DAILY [facility] Last Admin: 10/24/18 08:11 Dose: 25 mg Metoprolol Succinate (Toprol Xl) 50 mg PO DAILY [facility] Last Admin: 10/24/18 08:11 Dose: 50 mg Mirtazapine (Remeron) 7.5 mg PO HS [facility] Last Admin: 10/23/18 21:14 Dose: 7.5 mg Modafinil (Provigil) 200 mg PO DAILY [facility] Last Admin: 10/24/18 00:28 Dose: 200 mg Pantoprazole Sodium (Protonix Ec Tab) 40 mg PO DAILY [facility] Last Admin: 10/24/18 09:11 Dose: 40 mg Pioglitazone HCl (Actos) 30 mg PO DAILY [facility] - Labs Labs: 10/12/18 06:20 10/18/18 05:30
[2018-10-25] MEDS: Insulin Lispro (humaLOG) 100 Units/ml Inj SC SCH ×4 (07:01→21:12)
[2018-10-25] MEDS: CENTRUM SILVER MULTIVITAMIN PO SCH (08:43)
[2018-10-25] MEDS: GlipiZIDE 10 mg SR Tab PO SCH (08:43)
[2018-10-25] MEDS: Metoprolol Succinate 50 mg XL Tab PO SCH (08:44)
[2018-10-25] MEDS: Pantoprazole 40 mg EC Tab PO SCH (08:44)
--- NOTE | 2018-10-25 12:55 | CT ---
Date of service: 10/25/2018 PROCEDURE: CT HEAD WITHOUT CONTRAST. HISTORY: re-eval hemorrhagic conversion of left [employer] infarct COMPARISON: 10/23/2018 TECHNIQUE: Axial computed tomography images were obtained through the head/brain without intravenous contrast. Radiation dose: Total exam DLP = 901.39 mGy-cm. This CT exam was performed using one or more of the following dose reduction techniques: Automated exposure control, adjustment of the mA and/or kV according to patient size, and/or use of iterative reconstruction technique. FINDINGS: HEMORRHAGE: No significant change in a large left temporal occipital parietal intraparenchymal hemorrhagic infarct. BRAIN: Focal encephalomalacia in the left frontal lobe compatible with an old infarct. VENTRICLES: Mild mass-effect upon the left occipital horn. CALVARIUM: Unremarkable. PARANASAL SINUSES: Unremarkable as visualized. No significant inflammatory changes. MASTOID AIR CELLS: Unremarkable as visualized. No inflammatory changes. OTHER FINDINGS: None. IMPRESSION: No significant interval change.
--- NOTE | 2018-10-25 15:57 | CP.PCM.PN ---
Subjective - Date & Time of Evaluation Date of Evaluation: 10/25/18 Time of Evaluation: 15:57 - Subjective Subjective: Patient seen in the room is present no complaints today no pain continue current care Objective - Vital Signs/Intake and Output Vital Signs (last 24 hours): Temp Pulse Resp BP Pulse Ox 97.9 F 74 18 132/77 96 10/25/18 09:49 10/25/18 09:49 10/25/18 09:49 10/25/18 09:49 10/25/18 09:49 - Medications Medications: Current Medications Acetaminophen (Tylenol 325mg Tab) 650 mg PO Q6 PRN PRN Reason: Fever >100.4 F Al Hydrox/Mg Hydrox/Simethicone (Maalox Plus 30 Ml) 30 ml PO Q6 PRN PRN Reason: Indigestion / Heartburn Allopurinol (Zyloprim) 100 mg PO DAILY [facility] Last Admin: 10/25/18 08:45 Dose: 100 mg Amantadine HCl (Amantadine 100 Mg Cap) 100 mg PO BID [facility] Last Admin: 10/25/18 08:41 Dose: 100 mg Atorvastatin Calcium (Lipitor) 10 mg PO HS [facility] Last Admin: 10/24/18 21:39 Dose: 10 mg Carbidopa/Levodopa (Sinemet) 1 tab PO TID@0700,1200,1600 [facility] Last Admin: 10/25/18 13:43 Dose: 1 tab Docusate Sodium (Colace) 100 mg PO BID [facility] Last Admin: 10/25/18 08:41 Dose: 100 mg Glipizide (Glucotrol Xl) 10 mg PO DAILY [facility] Last Admin: 10/25/18 08:43 Dose: 10 mg Home Med (Patient's Own Medication) 1 unit PO DAILY [facility] Last Admin: 10/25/18 08:43 Dose: 1 unit Hydrochlorothiazide (Microzide) 12.5 mg PO DAILY [facility] Last Admin: 10/25/18 08:43 Dose: 12.5 mg Insulin Human Lispro (Humalog) 0 units SC [facility]; Protocol Last Admin: 10/25/18 13:43 Dose: 1 unit Lactulose (Enulose) 20 gm PO DAILY PRN PRN Reason: Constipation Last Admin: 10/22/18 16:51 Dose: 20 gm Losartan Potassium (Cozaar) 25 mg PO DAILY [facility] Last Admin: 10/25/18 08:42 Dose: 25 mg Metoprolol Succinate (Toprol Xl) 50 mg PO DAILY [facility] Last Admin: 10/25/18 08:44 Dose: 50 mg Mirtazapine (Remeron) 7.5 mg PO [facility] Last Admin: 10/24/18 21:39 Dose: 7.5 mg Modafinil (Provigil) 200 mg PO DAILY [facility] Last Admin: 10/25/18 08:46 Dose: 200 mg Pantoprazole Sodium (Protonix Ec Tab) 40 mg PO DAILY [facility] Last Admin: 10/25/18 08:44 Dose: 40 mg Pioglitazone HCl (Actos) 30 mg PO DAILY [facility] Last Admin: 10/25/18 08:41 Dose: 30 mg - Labs Labs: 10/12/18 06:20 10/18/18 05:30
[2018-10-26] MEDS: Insulin Lispro (humaLOG) 100 Units/ml Inj SC SCH ×4 (06:30→21:05)
[2018-10-26] MEDS: CENTRUM SILVER MULTIVITAMIN PO SCH (08:20)
[2018-10-26] MEDS: GlipiZIDE 10 mg SR Tab PO SCH (08:21)
[2018-10-26] MEDS: Metoprolol Succinate 50 mg XL Tab PO SCH (08:21)
[2018-10-26] MEDS: Pantoprazole 40 mg EC Tab PO SCH (08:22)
[2018-10-27] MEDS: Insulin Lispro (humaLOG) 100 Units/ml Inj SC SCH ×4 (06:34→21:14)
[2018-10-27] MEDS: CENTRUM SILVER MULTIVITAMIN PO SCH (08:55)
[2018-10-27] MEDS: GlipiZIDE 10 mg SR Tab PO SCH (08:57)
[2018-10-27] MEDS: Metoprolol Succinate 50 mg XL Tab PO SCH (08:57)
[2018-10-27] MEDS: Pantoprazole 40 mg EC Tab PO SCH (08:57)
--- NOTE | 2018-10-27 10:54 | CP.PCM.PN ---
Subjective - Date & Time of Evaluation Date of Evaluation: 10/27/18 Time of Evaluation: 10:20 - Subjective Subjective: Patient seen and examined. Denied any complaint. Still appeared depressed and lethargic. Objective - Vital Signs/Intake and Output Vital Signs (last 24 hours): Temp Pulse Resp BP Pulse Ox 97.3 F L 62 18 131/81 98 10/27/18 09:00 10/27/18 09:00 10/27/18 09:00 10/27/18 09:00 10/27/18 09:00 - Medications Medications: Current Medications Acetaminophen (Tylenol 325mg Tab) 650 mg PO Q6 PRN PRN Reason: Fever >100.4 F Al Hydrox/Mg Hydrox/Simethicone (Maalox Plus 30 Ml) 30 ml PO Q6 PRN PRN Reason: Indigestion / Heartburn Allopurinol (Zyloprim) 100 mg PO DAILY [facility] Last Admin: 10/27/18 08:57 Dose: 100 mg Amantadine HCl (Amantadine 100 Mg Cap) 100 mg PO BID [facility] Last Admin: 10/27/18 08:56 Dose: 100 mg Atorvastatin Calcium (Lipitor) 10 mg PO HS [facility] Last Admin: 10/26/18 21:04 Dose: 10 mg Carbidopa/Levodopa (Sinemet) 1 tab PO TID@0700,1200,1600 [facility] Last Admin: 10/27/18 06:09 Dose: 1 tab Docusate Sodium (Colace) 100 mg PO BID [facility] Last Admin: 10/27/18 08:56 Dose: 100 mg Glipizide (Glucotrol Xl) 10 mg PO DAILY [facility] Last Admin: 10/27/18 08:57 Dose: 10 mg Home Med (Patient's Own Medication) 1 unit PO DAILY [facility] Last Admin: 10/27/18 08:55 Dose: 1 unit Hydrochlorothiazide (Microzide) 12.5 mg PO DAILY [facility] Last Admin: 10/27/18 08:55 Dose: 12.5 mg Insulin Human Lispro (Humalog) 0 units SC [facility]; Protocol Last Admin: 10/27/18 06:34 Dose: Not Given Lactulose (Enulose) 20 gm PO DAILY PRN PRN Reason: Constipation Last Admin: 10/22/18 16:51 Dose: 20 gm Losartan Potassium (Cozaar) 25 mg PO DAILY [facility] Last Admin: 10/27/18 08:56 Dose: 25 mg Metoprolol Succinate (Toprol Xl) 50 mg PO DAILY [facility] Last Admin: 10/27/18 08:57 Dose: 50 mg Mirtazapine (Remeron) 7.5 mg PO HS [facility] Last Admin: 10/26/18 21:04 Dose: 7.5 mg Modafinil (Provigil) 200 mg PO DAILY [facility] Last Admin: 10/27/18 08:59 Dose: 200 mg Pantoprazole Sodium (Protonix Ec Tab) 40 mg PO DAILY [facility] Last Admin: 10/27/18 08:57 Dose: 40 mg Pioglitazone HCl (Actos) 30 mg PO DAILY [facility] Last Admin: 10/27/18 08:56 Dose: 30 mg - Labs Labs: 10/12/18 06:20 10/18/18 05:30 - Constitutional Appears: No Acute Distress - Head Exam Head Exam: ATRAUMATIC - Eye Exam Eye Exam: absent: Scleral icterus - ENT Exam ENT Exam: Mucous Membranes Moist - Neck Exam Neck Exam: absent: Meningismus - Respiratory Exam Respiratory Exam: absent: Rales, Rhonchi, Wheezes, Respiratory Distress - Cardiovascular Exam Cardiovascular Exam: REGULAR RHYTHM, +S1, +S2 - GI/Abdominal Exam GI & Abdominal Exam: Soft. absent: Tenderness - Rectal Exam Rectal Exam: Deferred - Neurological Exam Neurological Exam: Alert, Oriented x3 - Psychiatric Exam Psychiatric exam: Depressed - Skin Skin Exam: Dry, Intact Assessment and Plan - Assessment and Plan (Free Text) Assessment: 77 yo male with history of HTN, DM2 and HLD with acute CVA transferred from [facility] to [facility] for therapy. CT of head on 10/11 showed left posterior cerebral artery infarct with hemorrhagic conversion and mass effect. 1. 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 Depression psyche consult appreciated with Dr Samuel Gambinoeron 7.5mg PO HS 3. Afib rate controlled continue Metoprolol Succinate 4. HTN BP stable on Metoprolol, Losartan and HCTZ 5. DM type II BS controlled continue Accuchecks, insulin coverage, diabetic diet continue Glipizide SR and Pioglitazone 5. Gout on Allopurinol stable
--- NOTE | 2018-10-27 12:15 | CP.PCM.PN ---
Subjective - Date & Time of Evaluation Date of Evaluation: 10/27/18 Time of Evaluation: 12:15 - Subjective Subjective: Neurology Consultation Follow-Up Note: Mr. Richard was seen and evaluated today at bedside with OT and primary RN. Today he is awake and alert with periods of drowsiness. He engages in the interview and exam today and admits to feeling "some dizziness." He denies headache, visual changes, chest pain, shortness of breath, nausea/vomiting. Patient unable to follow all commands during exam. No acute overnight events noted per nursing staff. Has been hypotensive since this morning. Per primary RN pt's attending has been paged for this. Objective - Vital Signs/Intake and Output Vital Signs (last 24 hours): Temp Pulse Resp BP Pulse Ox 97.3 F L 62 18 131/81 98 10/27/18 09:00 10/27/18 09:00 10/27/18 09:00 10/27/18 09:00 10/27/18 09:00 - Medications Medications: Current Medications Acetaminophen (Tylenol 325mg Tab) 650 mg PO Q6 PRN PRN Reason: Fever >100.4 F Al Hydrox/Mg Hydrox/Simethicone (Maalox Plus 30 Ml) 30 ml PO Q6 PRN PRN Reason: Indigestion / Heartburn Allopurinol (Zyloprim) 100 mg PO DAILY [facility] Last Admin: 10/27/18 08:57 Dose: 100 mg Amantadine HCl (Amantadine 100 Mg Cap) 100 mg PO BID [facility] Last Admin: 10/27/18 08:56 Dose: 100 mg Atorvastatin Calcium (Lipitor) 10 mg PO HS [facility] Last Admin: 10/26/18 21:04 Dose: 10 mg Carbidopa/Levodopa (Sinemet) 1 tab PO TID@0700,1200,1600 [facility] Last Admin: 10/27/18 06:09 Dose: 1 tab Docusate Sodium (Colace) 100 mg PO BID [facility] Last Admin: 10/27/18 08:56 Dose: 100 mg Glipizide (Glucotrol Xl) 10 mg PO DAILY [facility] Last Admin: 10/27/18 08:57 Dose: 10 mg Home Med (Patient's Own Medication) 1 unit PO DAILY [facility] Last Admin: 10/27/18 08:55 Dose: 1 unit Hydrochlorothiazide (Microzide) 12.5 mg PO DAILY [facility] Last Admin: 10/27/18 08:55 Dose: 12.5 mg Insulin Human Lispro (Humalog) [address] [facility]; Protocol Last Admin: 10/27/18 06:34 Dose: Not Given Lactulose (Enulose) 20 gm PO DAILY PRN PRN Reason: Constipation Last Admin: 10/22/18 16:51 Dose: 20 gm Losartan Potassium (Cozaar) 25 mg PO DAILY [facility] Last Admin: 10/27/18 08:56 Dose: 25 mg Metoprolol Succinate (Toprol Xl) 50 mg PO DAILY [facility] Last Admin: 10/27/18 08:57 Dose: 50 mg Mirtazapine (Remeron) 7.5 mg PO HS [facility] Last Admin: 10/26/18 21:04 Dose: 7.5 mg Modafinil (Provigil) 200 mg PO DAILY [facility] Last Admin: 10/27/18 08:59 Dose: 200 mg Pantoprazole Sodium (Protonix Ec Tab) 40 mg PO DAILY [facility] Last Admin: 10/27/18 08:57 Dose: 40 mg Pioglitazone HCl (Actos) 30 mg PO DAILY [facility] Last Admin: 10/27/18 08:56 Dose: 30 mg - Labs Labs: 10/12/18 06:20 10/18/18 05:30 - Constitutional Appears: Well, Non-toxic, No Acute Distress - Head Exam Head Exam: ATRAUMATIC, NORMAL INSPECTION, NORMOCEPHALIC - Eye Exam Eye Exam: EOMI, Normal appearance, PERRL Pupil Exam: PERRL - ENT Exam ENT Exam: Mucous Membranes Moist - Neck Exam Neck Exam: Full ROM - Respiratory Exam Respiratory Exam: NORMAL BREATHING PATTERN - Extremities Exam Extremities Exam: Full ROM, Normal Inspection. absent: Calf Tenderness, Pedal Edema Additional comments: from to ble; weakness noted - Neurological Exam Neurological Exam: Abnormal Gait (unsteady; needs assistance), Alert, Awake Neuro motor strength exam: Left Upper Extremity: 4, Right Upper Extremity: 4, Left Lower Extremity: 3, Right Lower Extremity: 3 Additional comments: speech clear and fluid. Sensation equal and intact b/l. Reflexes brisk b/l. Attempted to test fine motor; pt could not follow commands to test fine motor. Could not follow commands to finger to nose test. Able to move all extremities, however, generalized weakness noted mostly to BLE. - Psychiatric Exam Psychiatric exam: Normal Affect - Skin Skin Exam: Normal Color Assessment and Plan (1) CVA (cerebral vascular accident) Assessment & Plan: Imaging: -CT Head (10/25/18): No significant interval change. -CT Head without contrast (10/23/18): Interval mild increase in the size of the surrounding edema around the parenchymal hemorrhage/hemorrhagic conversion of left MOLDING SANDER infarction. Otherwise no significant interval changes noted since the prior study. Stable parenchymal hemorrhage surrounding with edema at the posterior left parietal occipital lobe again noted. Foci of encephalomalacia at the left frontal lobe and right cerebellum. -CT Head without contrast (10/20/18): Prior site of hemorrhagic conversion at the left MOLDING SANDER ischemic infarct is suspicious for new interval hemorrhage at this time with no signal interval change in overall mass effect currently. Follow-up head CT advised. Stable age related neuro degenerative findings. -Mr. Richard today was alert with periods of drowsiness during exam. Since we have been on his case, he does have periods of lucidness and periods of drowsiness, which have both been present for several weeks. -Dizziness today likely due to orthostatic hypotension. Please consider adjusting the times of his HTN meds or temporarily holding one (he is currently on HTCZ, Losartan, and Toprol XL). I discussed with primary RN but decision regarding HTN meds will be deferred to primary team. -If pt has symptomatic orthostatic hypotension again, consider gentle IV hydration such as NS @ 70 ml/hr. -Continue Sinemet started 10/23/18. -EEG read as neg per Dr. Glover -Continue Provigil. -Continue to hold aspirin per Dr. Glover based on the repeat CT Head results from 10/23/18 as well as considering no change on the CT from 10/25/18. -Continue PT/OT; notes reviewed. -Please call neuro team with any acute changes in patient's condition. -We will continue to follow Mr. Richard throughout his stay in rehab. He will likely be d/c to [facility] this week. Case discussed with Dr. Meyer. Status: Acute
--- NOTE | 2018-10-27 18:14 | CP.PCM.PN ---
Subjective - Date & Time of Evaluation Date of Evaluation: 10/27/18 Time of Evaluation: 18:14 - Subjective Subjective: Patient seen in the room NAD ambulating 100' VCs in therapy team conf. tomorrow for d/c planning no reported pain issues. continue current care Objective - Vital Signs/Intake and Output Vital Signs (last 24 hours): Temp Pulse Resp BP Pulse Ox 97.3 F L 57 L 18 102/64 98 10/27/18 09:00 10/27/18 09:27 10/27/18 09:00 10/27/18 09:27 10/27/18 09:27 - Medications Medications: Current Medications Acetaminophen (Tylenol 325mg Tab) 650 mg PO Q6 PRN PRN Reason: Fever >100.4 F Al Hydrox/Mg Hydrox/Simethicone (Maalox Plus 30 Ml) 30 ml PO Q6 PRN PRN Reason: Indigestion / Heartburn Allopurinol (Zyloprim) 100 mg PO DAILY [facility] Last Admin: 10/27/18 08:57 Dose: 100 mg Amantadine HCl (Amantadine 100 Mg Cap) 100 mg PO BID [facility] Last Admin: 10/27/18 16:56 Dose: 100 mg Atorvastatin Calcium (Lipitor) 10 mg PO HS [facility] Last Admin: 10/26/18 21:04 Dose: 10 mg Carbidopa/Levodopa (Sinemet) 1 tab PO TID@0700,1200,1600 [facility] Last Admin: 10/27/18 16:55 Dose: 1 tab Docusate Sodium (Colace) 100 mg PO BID [facility] Last Admin: 10/27/18 16:56 Dose: 100 mg Glipizide (Glucotrol Xl) 10 mg PO DAILY [facility] Last Admin: 10/27/18 08:57 Dose: 10 mg Home Med (Patient's Own Medication) 1 unit PO DAILY [facility] Last Admin: 10/27/18 08:55 Dose: 1 unit Hydrochlorothiazide (Microzide) 12.5 mg PO DAILY [facility] Last Admin: 10/27/18 08:55 Dose: 12.5 mg Insulin Human Lispro (Humalog) 0 units SC [facility]; Protocol Last Admin: 10/27/18 16:55 Dose: 1 unit Lactulose (Enulose) 20 gm PO DAILY PRN PRN Reason: Constipation Last Admin: 10/22/18 16:51 Dose: 20 gm Losartan Potassium (Cozaar) 25 mg PO DAILY [facility] Last Admin: 10/27/18 08:56 Dose: 25 mg Metoprolol Succinate (Toprol Xl) 50 mg PO DAILY [facility] Last Admin: 10/27/18 08:57 Dose: 50 mg Mirtazapine (Remeron) 7.5 mg PO HS [facility] Last Admin: 10/26/18 21:04 Dose: 7.5 mg Modafinil (Provigil) 200 mg PO DAILY [facility] Last Admin: 10/27/18 08:59 Dose: 200 mg Pantoprazole Sodium (Protonix Ec Tab) 40 mg PO DAILY [facility] Last Admin: 10/27/18 08:57 Dose: 40 mg Pioglitazone HCl (Actos) 30 mg PO DAILY [facility] Last Admin: 10/27/18 08:56 Dose: 30 mg - Labs Labs: 10/12/18 06:20 10/18/18 05:30
[2018-10-27] MEDS ORDERED: Metoprolol Succinate 50 mg XL Tab PO SCH (22:00)
[2018-10-27 23:33] VITALS: O2SAT 97
[2018-10-28] MEDS: Insulin Lispro (humaLOG) 100 Units/ml Inj SC SCH ×4 (07:20→21:23)
[2018-10-28] MEDS: Pantoprazole 40 mg EC Tab PO SCH (08:14)
[2018-10-28] MEDS: CENTRUM SILVER MULTIVITAMIN PO SCH (08:15)
[2018-10-28] MEDS: GlipiZIDE 10 mg SR Tab PO SCH (08:15)
[2018-10-28] MEDS ORDERED: Sodium Chloride 0.9% 1,000 ML IV SCH (12:15)
--- NOTE | 2018-10-28 13:00 | CP.PCM.PN ---
Subjective - Date & Time of Evaluation Date of Evaluation: 10/28/18 Time of Evaluation: 13:00 - Subjective Subjective: Neurology Consultation Follow-Up Note: Mr. Richard was seen and evaluated this afternoon. Observed pt eating lunch by himself and tolerating well. Today he is awake and alert; no drowsiness during exam. Pt states his dizziness resolved. He denies headache, dizziness, visual changes, chest pain, shortness of breath, abd pain, nausea/vomiting. Patient able to follow all commands during exam today. Per nursing staff, pt was orthostatic this morning after his therapy session. Dr. Meyer was made aware of this prior to my rounding on patient. Objective - Vital Signs/Intake and Output Vital Signs (last 24 hours): Temp Pulse Resp BP Pulse Ox 97.8 F 81 20 76/50 L 97 10/28/18 09:31 10/28/18 10:21 10/28/18 09:31 10/28/18 10:21 10/28/18 09:29 - Medications Medications: Current Medications Acetaminophen (Tylenol 325mg Tab) 650 mg PO Q6 PRN PRN Reason: Fever >100.4 F Al Hydrox/Mg Hydrox/Simethicone (Maalox Plus 30 Ml) 30 ml PO Q6 PRN PRN Reason: Indigestion / Heartburn Allopurinol (Zyloprim) 100 mg PO DAILY [facility] Last Admin: 10/28/18 08:15 Dose: 100 mg Amantadine HCl (Amantadine 100 Mg Cap) 100 mg PO BID [facility] Last Admin: 10/28/18 08:17 Dose: 100 mg Atorvastatin Calcium (Lipitor) 10 mg PO HS [facility] Last Admin: 10/27/18 21:13 Dose: 10 mg Carbidopa/Levodopa (Sinemet) 1 tab PO TID@0700,1200,1600 [facility] Last Admin: 10/28/18 12:47 Dose: 1 tab Docusate Sodium (Colace) 100 mg PO BID [facility] Last Admin: 10/28/18 08:13 Dose: 100 mg Glipizide (Glucotrol Xl) 10 mg PO DAILY [facility] Last Admin: 10/28/18 08:15 Dose: 10 mg Home Med (Patient's Own Medication) 1 unit PO DAILY [facility] Last Admin: 10/28/18 08:15 Dose: 1 unit Hydrochlorothiazide (Microzide) 12.5 mg PO DAILY@1300 [facility] Last Admin: 10/28/18 12:48 Dose: Not Given Sodium Chloride (Sodium Chloride 0.9%) 1,000 mls @ 500 mls/hr IV .Q2H [facility] Stop: 10/28/18 13:16 Last Admin: 10/28/18 12:22 Dose: 500 mls/hr Insulin Human Lispro (Humalog) 0 units SC [facility]; Protocol Last Admin: 10/28/18 12:19 Dose: 2 unit Lactulose (Enulose) 20 gm PO DAILY PRN PRN Reason: Constipation Last Admin: 10/22/18 16:51 Dose: 20 gm Metoprolol Succinate (Toprol Xl) 50 mg PO [facility] Mirtazapine (Remeron) 7.5 mg PO [facility] Last Admin: 10/27/18 21:14 Dose: 7.5 mg Modafinil (Provigil) 200 mg PO DAILY [facility] Last Admin: 10/28/18 09:11 Dose: 200 mg Pantoprazole Sodium (Protonix Ec Tab) 40 mg PO DAILY [facility] Last Admin: 10/28/18 08:14 Dose: 40 mg Pioglitazone HCl (Actos) 30 mg PO DAILY [facility] Last Admin: 10/28/18 08:14 Dose: 30 mg - Labs Labs: 10/12/18 06:20 10/18/18 05:30 - Constitutional Appears: Well, Non-toxic, No Acute Distress - Head Exam Head Exam: ATRAUMATIC, NORMAL INSPECTION, NORMOCEPHALIC - Eye Exam Eye Exam: EOMI, Normal appearance Pupil Exam: NORMAL ACCOMODATION, PERRL - ENT Exam ENT Exam: Mucous Membranes Moist - Neck Exam Neck Exam: Full ROM - Respiratory Exam Respiratory Exam: NORMAL BREATHING PATTERN - Extremities Exam Extremities Exam: Full ROM, Normal Inspection. absent: Calf Tenderness, Pedal Edema - Neurological Exam Neurological Exam: Alert, Awake, CN II-XII Intact, Oriented x3, Reflexes Normal Neuro motor strength exam: Left Upper Extremity: 4, Right Upper Extremity: 4, Left Lower Extremity: 4, Right Lower Extremity: 4 Additional comments: speech clear and fluid. Strength to BUE and BLE 4/4 today Sensation equal and intact b/l. Reflexes brisk b/l. Able to do finger to nose test today; dysmetria Visual rutledge intact. No tremors; no clonus - Psychiatric Exam Psychiatric exam: Normal Affect, Normal Mood - Skin Skin Exam: Normal Color Assessment and Plan (1) CVA (cerebral vascular accident) Assessment & Plan: Imaging: -CT Head (10/25/18): No significant interval change. -CT Head without contrast (10/23/18): Interval mild increase in the size of the surrounding edema around the parenchymal hemorrhage/hemorrhagic conversion of left TEST ENGINE OPERATOR infarction. Otherwise no significant interval changes noted since the prior study. Stable parenchymal hemorrhage surrounding with edema at the posterior left parietal occipital lobe again noted. Foci of encephalomalacia at the left frontal lobe and right cerebellum. -CT Head without contrast (10/20/18): Prior site of hemorrhagic conversion at the left TEST ENGINE OPERATOR ischemic infarct is suspicious for new interval hemorrhage at this time with no signal interval change in overall mass effect currently. Follow-up head CT advised. Stable age related neuro degenerative findings. -Mr. Richard today was more alert and less drowsy than yesterday. Since we have been on his case, he does have periods of lucidness and periods of drowsiness, which have been present for several weeks. He was able to answer all of my questions appropriately today and follow all commands. -Dizziness yesterday likely due to orthostatic hypotension. I did notice a change in the times of his HTN meds by primary. Neuro also d/c Losartan. -NS 500 ml iv bolus ordered by Dr. Meyer (per nurse) followed by NS @ 100 ml/hr -Monitor orthostatics prn dizziness -Continue Sinemet started 10/23/18. -EEG read as neg per Dr. Glover -Continue Provigil. -Consider holding or discontinuing Remeron if pt remains drowsy during the day. -Continue to hold aspirin per Dr. Glover based on the repeat CT Head results from 10/23/18 as well as considering no change on the CT from 10/25/18. -Continue PT/OT; notes reviewed. -Please call neuro team with any acute changes in patient's condition. -We will continue to follow Mr. Richard throughout his stay in rehab. He will likely be d/c to [facility] this week. Case discussed with Dr. Meyer. Status: Acute
--- NOTE | 2018-10-28 13:24 | PCM.PSYTMC ---
Acute Rehab Team Conference - - Vital Signs: Vital Signs (Last 8 Hours): Vital Signs 10/28/18 10/28/18 10/28/18 08:15 09:29 09:31 Temperature 98.1 F 97.8 F Pulse Rate 78 74 77 Respiratory 20 20 Rate Blood Pressure 129/69 130/78 122/78 O2 Sat by Pulse 97 Oximetry 10/28/18 10:21 Temperature Pulse Rate 81 Respiratory Rate Blood Pressure 76/50 L O2 Sat by Pulse Oximetry Pain: 0 - Precautions: Precautions: Fall Prevention - Medications/Other Issues: Comment: oriented x1 lethargic with flat affect seen and examine by psychiatry no orders patients needs a lot of verbal cues ct scan 10/20 with changes Neurologist aware ritalin ordered,also hospitalist aware - Consults: Comment: Dr Rodriguez,DR Meyer,Dr Aragon - Skin: Incision Site: N/A - Toileting: Toileting: Contact Guard - Bladder Management: Bladder Pattern: Normal Voiding Method: Toilet, Urinal Bladder Management: Contact Guard - Transfers: Transfers: Contact Guard - ADL's: ADL's: Modified Independent - Pain Management: Other Intervention:: denies any pain - Patient/Family Teaching: Other Intervention:: re: fall precaution. patient needs reinforcement - Goals/Time Frame: Comment: patient will be able to be from fall all the time. noted. - Provider: Registered Nurse:: Bladimir Bates Physical Therapy - Bed Mobility Bed Mobility: Moderate Assistance - Transfers Wheelchair to Mat: Moderate Assistance Sit to Stand: Minimal Assistance, Moderate Assistance - Ambulation Level of Assistance: Moderate Assistance Distance (ft.): 100 Assistive Devices: Rolling Walker - Stair Negotiation Comment: have not been able to perform stair negotiation since beginning of last week 2/2 increased lethargy and decreased participation. Upon last assessment, pt negotiated practice stairs with min A with max cues - Standing Balance Static Stand: Minimal Assistance - Pain Pain (assessed during therapy session): 0 Comment: pt denies pain - Insight/Carryover Insight/Carryover: Poor - Patient/Family Education Comment: CVA recovery, safey, benefits of therapy interventions - Assessment/Plan Assessment: Pt with noted increased lethargy and decreased motivation to participate iN PT sessions compared to last team conference. Pt with decreased initiation and participation in functional tasks, resulting in increased assist levels needed. pt performs transfers with min/mod A and ambualtes with mod A using RW. Recommend d/c to [facility] for lower intensity of rehabilitation. - Goals Timeframe: 2 weeks Goals: Sit < > supine with supervision. Sit < > stand transfers with supervision. pt will ambulate 200 ft with Rw and CGA. Pt will ascend/descend flight of stairs with handrail and CGA - Provider Physical Therapist:: Juliet Washburn License Number:: [id number] Occupational Therapy - Arousal/Attention/Orientation Level of Consciousness: Awake, Confused, Lethargic Patient Orientation: Person - ADL/IADL Self Feeding: Minimal Assistance Grooming: Minimal Assistance Bathing-Upper Ext: Maximum Assistance Bathing-Lower Ext: Maximum Assistance Dressing-Upper Ext: Minimal Assistance, Moderate Assistance Dressing-Lower Ext: Maximum Assistance - Sitting Balance Static Sitting: Supervision Dynamic Sitting: Contact Guard Assist - Transfers Toilet Transfers: Moderate Assistance - Wheelchair Management Level of Assistance: Minimal Assistance, Moderate Assistance Distance (ft.): 75 - Upper Extremity Status Right Upper Extremity Comment: AROM WFLS. decreased coordination Left Upper Extremity Comment: AROM WFLS - Pain Pain (assessed during therapy session): 0 - Insight/Carryover Insight/Carryover: Fair - Patient/Family Education Comment: CVA recovery, dme/ae education, - Assessment/Plan Assessment: Patient is a 77 yo male with dx: acute CVA with impaired visual acuity, + double vision, R hemianosia. *Precautions: cardiac, fall precautions, severe impaired visual deficits, w/c & bed alarm. Pt presents with the following impairments: -impaired visual acuity, + double vision, impaired visual scanning towards R. -+ R inattention. -impaired standing/sitting balance. -impaired cognition: memory, attention, problem-solving/judgement, insight, impaired arousal. -impaired activity tolerance/endurance. -impaired safety awareness---which greatly impact on functional performance of self care, transfers/mobility. patient was making slight gains in therapy during initial first few days of TX-however- secondary episodes of orthostatic hypotension, decreased arousal, poor motivation and poor cognition patient has not progressed with his functional abilities. patient was seen by psych and it was determined he was not a candidate for intervention at this time. patient to be d/monica to [facility] for further rehab 10/29 - Goals Timeframe: 5 days - Provider Occupational Therapist:: Patricia Veliz License Number: [id number] Speech Therapy - Consult Information Patient on Program: Yes Medical Diagnosis: CVA Treatment Diagnosis: severe cognitive deficits - Assessment Expressive Language Impairment: Moderate Receptive Language Impairment: Moderate Problem Solving Impairment: Severe Memory Impairment: Severe - Plan Assessment: Bandar Gutierrez continues to present with severe cognitive- linguistic deficits characterized by impaired orientation, short-term memory, attention, problem solving, reasoning, direction following, word retrieval, and ability to answer variety of yes/no and open-ended questions. Progress in tx has been limited by pt's visual deficits, cognitive deficits, lethargy, and fluctuating attention/participation in tx tasks. He does intermittently demonstrate improved communication skills in conversational tasks, though appears to withdraw quicker during structured tx tasks. 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 Plan: Continue Speech/Language Therapy Frequency: 3-5 times per week Duration: 1 week Goals/Timeframe: Please see progress note completed 10/27/18 for updated goals/POC Recommendations: Continue ST 3-5x/week for improved cognition and functional independence - Provider Therapist: Stacie Sauceda License Number: [id number] Recreational Therapy - Participation Participation: Participates in Individual and/or Group Sessions, Monitors His/Her Own Leisure Time - Attendance Attendance: Daily - Activities Leisure Activities: Cards and Games - Socialization Level of Socialization: Initiates/interacts with caregivers but not with peer, Isolate by choice, Responds freely, but does not initiate, Requires 1:1 guidance to respond, Minimal initiation of interaction to request basic needs, Minimal or no response - Diversional Time Diversional Time: watching television, singing - Assessment Assessment/Plan: Pt requires max verbal cues for encouragement to participate in recreation therapy sessions. Prior recreation therapy sessions, pt has demonstrated decrease arousal and decrease initation to attend to task and perseverates on statements throughout his responses to questions. All leisure tasks and items are placed to L side of pt 2' visual deficits. Encouraged pt to participate in card and number recognition task and pt has not completed task since beginning of stay on unit. Encourage pt and pt's to have him sing to her in the room. Pt's arousal level has improved although continues to present with eyes closed requiring max verbal cues to keep eyes open. Engaged in discussions with pt and pt's in room to improve pt's leisure awareness lev el. Problems Currently Limiting Participation: decrease command following, decrease initiation, decrease arousal level, decrease initiation, decrease color and number identification and recognition, decrease recall of prior conversations, double vision, visual deficits, decrease attention to task Goals and Time Frame: Pt will be encouraged to participate in 1:1 and group recreation therapy sessions 3-5x week to improve command following, direction following, attention to task, arousal level, and recalling facts on demand by date of discharge. - Provider Therapist: Liya Okeefe Nutrition - Current Diet Current Diet/Supplement/Feedings: 1) 3 gm Na, High Consistent CHO. 2) Glucerna Shake BID (440kcal, 20g pro) - Appetite Percent Meal Consumed: 25-49% - Comments Comments: Pt appetite is declining, reporting early satiety. - Assessment/Goals/Time Frame Assessments/Goals/Time Frame: Pt seen 10/27 for follow up 11/01. 1. Pt to consume at least 75% of each meal.(unmet, continue). 2. Maintain blood glucose between 70-180.(partially met, continue) - Provider Provider: Levar Lemon Case Management - Psychosocial Assessment Support Systems: Lesley Hilary (spouse)- Psychological Interventions/Needs: Patient is AAO with lethargy. Discharge Concerns: Cognitive impairments/lethargy. Patient/Family Meeting: CM met with patient and rehab team. Intervention/Goal/Outcome: 1. Goal: Min assist 2. Plan: ELEONORA at [place] 3. continued emotional support 4. D/C date 10/29/18 - Discharge Plan Discharge Plan: Subacute care - Provider Provider: Gloria Guillen License Number: [id number] Rehabilitation Plan - Treatment Plan Treatment Plan: Physical Therapy, Occupational Therapy, Speech, Dietary, Patient/Family Education - Recommendation Recommendation: Physical Therapy, Occupational Therapy, Speech, Dietary, Patient/Family Education - Discharge Plan Estimated Date of Discharge: 10/29/18 Discharge to: Subacute
[2018-10-28] MEDS: Sodium Chloride 0.9% 1,000 ML IV SCH (15:41)
--- NOTE | 2018-10-28 19:05 | CP.PCM.PN ---
Subjective - Date & Time of Evaluation Date of Evaluation: 10/28/18 Time of Evaluation: 19:04 - Subjective Subjective: Patient seen in the room with present continued flat affect seemingly indifferent to contact plateauing at therapies and they are dependent on his effort at this point. I have lowered the provigil to 100mg on remeron Objective - Vital Signs/Intake and Output Vital Signs (last 24 hours): Temp Pulse Resp BP Pulse Ox 97.8 F 72 20 76/50 L 97 10/28/18 09:31 10/28/18 10:49 10/28/18 09:31 10/28/18 10:21 10/28/18 09:29 - Medications Medications: Current Medications Acetaminophen (Tylenol 325mg Tab) 650 mg PO Q6 PRN PRN Reason: Fever >100.4 F Al Hydrox/Mg Hydrox/Simethicone (Maalox Plus 30 Ml) 30 ml PO Q6 PRN PRN Reason: Indigestion / Heartburn Allopurinol (Zyloprim) 100 mg PO DAILY [facility] Last Admin: 10/28/18 08:15 Dose: 100 mg Amantadine HCl (Amantadine 100 Mg Cap) 100 mg PO BID [facility] Last Admin: 10/28/18 17:08 Dose: 100 mg Atorvastatin Calcium (Lipitor) 10 mg PO HS [facility] Last Admin: 10/27/18 21:13 Dose: 10 mg Carbidopa/Levodopa (Sinemet) 1 tab PO TID@0700,1200,1600 [facility] Last Admin: 10/28/18 16:08 Dose: 1 tab Docusate Sodium (Colace) 100 mg PO BID [facility] Last Admin: 10/28/18 17:07 Dose: 100 mg Glipizide (Glucotrol Xl) 10 mg PO DAILY [facility] Last Admin: 10/28/18 08:15 Dose: 10 mg Home Med (Patient's Own Medication) 1 unit PO DAILY [facility] Last Admin: 10/28/18 08:15 Dose: 1 unit Hydrochlorothiazide (Microzide) 12.5 mg PO DAILY@1300 [facility] Last Admin: 10/28/18 12:48 Dose: Not Given Sodium Chloride (Sodium Chloride 0.9%) 1,000 mls @ 100 mls/hr IV .Q10H [facility] Stop: 10/29/18 03:00 Last Admin: 10/28/18 15:41 Dose: 100 mls/hr Insulin Human Lispro (Humalog) 0 units SC [facility]; Protocol Last Admin: 10/28/18 17:08 Dose: Not Given Lactulose (Enulose) 20 gm PO DAILY PRN PRN Reason: Constipation Last Admin: 10/22/18 16:51 Dose: 20 gm Metoprolol Succinate (Toprol Xl) 50 mg PO HS [facility] Mirtazapine (Remeron) 7.5 mg PO HS [facility] Last Admin: 10/27/18 21:14 Dose: 7.5 mg Modafinil (Provigil) 100 mg PO DAILY [facility] Pantoprazole Sodium (Protonix Ec Tab) 40 mg PO DAILY [facility] Last Admin: 10/28/18 08:14 Dose: 40 mg Pioglitazone HCl (Actos) 30 mg PO DAILY [facility] Last Admin: 10/28/18 08:14 Dose: 30 mg - Labs Labs: 10/12/18 06:20 10/18/18 05:30
[2018-10-28] MEDS: Metoprolol Succinate 50 mg XL Tab PO SCH (21:16)
[2018-10-29] MEDS: Sodium Chloride 0.9% 1,000 ML IV SCH (02:42)
[2018-10-29] MEDS: Insulin Lispro (humaLOG) 100 Units/ml Inj SC SCH ×4 (06:49→21:28)
[2018-10-29] MEDS: Pantoprazole 40 mg EC Tab PO SCH (09:26)
[2018-10-29] MEDS: GlipiZIDE 10 mg SR Tab PO SCH (09:26)
[2018-10-29] MEDS: CENTRUM SILVER MULTIVITAMIN PO SCH (09:28)
--- NOTE | 2018-10-29 11:43 | CP.PCM.PN ---
Subjective - Date & Time of Evaluation Date of Evaluation: 10/29/18 Time of Evaluation: 11:41 - Subjective Subjective: doing well no complaints hd stable nad Objective - Vital Signs/Intake and Output Vital Signs (last 24 hours): Temp Pulse Resp BP Pulse Ox 97.9 F 67 18 118/67 97 10/29/18 10:00 10/29/18 10:00 10/29/18 10:00 10/29/18 10:00 10/29/18 10:00 Intake and Output: Vitals reviewed Constitutional- cooperative, awake, alert. Head- NCAT, PERRL Eye- PERRL, normal accommodation ENT- normal exam, MMM. Neck- normal inspection, supple, no JVD Respiratory- decreased BS, no wheezes rales rhonchi Cardiovascular- RRR, +S1, +S2 no MRG GI/Abdominal- normal bowel sounds, soft Extremities Exam- normal capillary refill, normal inspection Neurological Exam- alert, oriented Psych - normal mood, normal affect - Medications Medications: Current Medications Acetaminophen (Tylenol 325mg Tab) 650 mg PO Q6 PRN PRN Reason: Fever >100.4 F Al Hydrox/Mg Hydrox/Simethicone (Maalox Plus 30 Ml) 30 ml PO Q6 PRN PRN Reason: Indigestion / Heartburn Allopurinol (Zyloprim) 100 mg PO DAILY [facility] Last Admin: 10/29/18 09:26 Dose: 100 mg Amantadine HCl (Amantadine 100 Mg Cap) 100 mg PO BID [facility] Last Admin: 10/29/18 09:26 Dose: 100 mg Atorvastatin Calcium (Lipitor) 10 mg PO HS [facility] Last Admin: 10/28/18 21:16 Dose: 10 mg Carbidopa/Levodopa (Sinemet) 1 tab PO TID@0700,1200,1600 [facility] Last Admin: 10/29/18 06:03 Dose: 1 tab Docusate Sodium (Colace) 100 mg PO BID [facility] Last Admin: 10/29/18 09:26 Dose: 100 mg Glipizide (Glucotrol Xl) 10 mg PO DAILY [facility] Last Admin: 10/29/18 09:26 Dose: 10 mg Home Med (Patient's Own Medication) 1 unit PO DAILY [facility] Last Admin: 10/29/18 09:28 Dose: 1 unit Hydrochlorothiazide (Microzide) 12.5 mg PO DAILY@1300 [facility] Last Admin: 10/28/18 12:48 Dose: Not Given Insulin Human Lispro (Humalog) 0 units SC [facility]; Protocol Last Admin: 10/29/18 06:49 Dose: Not Given Lactulose (Enulose) 20 gm PO DAILY PRN PRN Reason: Constipation Last Admin: 10/22/18 16:51 Dose: 20 gm Metoprolol Succinate (Toprol Xl) 50 mg PO [facility] Last Admin: 10/28/18 21:16 Dose: 50 mg Mirtazapine (Remeron) 7.5 mg PO HS [facility] Last Admin: 10/28/18 21:16 Dose: 7.5 mg Modafinil (Provigil) 100 mg PO DAILY [facility] Last Admin: 10/29/18 09:30 Dose: 100 mg Pantoprazole Sodium (Protonix Ec Tab) 40 mg PO DAILY [facility] Last Admin: 10/29/18 09:26 Dose: 40 mg Pioglitazone HCl (Actos) 30 mg PO DAILY [facility] Last Admin: 10/29/18 09:26 Dose: 30 mg - Labs Labs: 10/12/18 06:20 10/18/18 05:30 Assessment and Plan - Assessment and Plan (Free Text) Plan: 77 yo male with history of HTN, DM2 and HLD with acute CVA transferred from [facility] to [facility] for therapy. CT of head on 10/11 showed left posterior cerebral artery infarct with hemorrhagic conversion and mass effect. 1. 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 Depression psyche consult appreciated with Dr Samuel Fernandes 7.5mg PO HS 3. Afib rate controlled continue Metoprolol Succinate 4. HTN BP stable on Metoprolol, Losartan and HCTZ 5. DM type II BS controlled continue Accuchecks, insulin coverage, diabetic diet continue Glipizide SR and Pioglitazone 5. Gout on Allopurinol stable
--- NOTE | 2018-10-29 12:23 | CP.PCM.PN ---
Subjective - Date & Time of Evaluation Date of Evaluation: 10/29/18 Time of Evaluation: 12:21 - Subjective Subjective: Neurology Consultation Follow-Up Note: Mr. Richard was seen and evaluated this morning with and daughter at bedside. Discharge to [facility] postponed until tomorrow afternoon due to paperwork; he will be under the care of Dr. Godwin [place] while at [facility]. Today pt is awake and alert. No drowsiness today. Pt also states that his dizziness resolved. He denies headache, dizziness, visual changes, chest pain, shortness of breath, abd pain, nausea/vomiting. Patient able to follow all commands during exam today. Had a lengthy discussion with and daughter regarding his recent CVA and his progression. Objective - Vital Signs/Intake and Output Vital Signs (last 24 hours): Temp Pulse Resp BP Pulse Ox 97.9 F 67 18 118/67 97 10/29/18 10:00 10/29/18 10:00 10/29/18 10:00 10/29/18 10:00 10/29/18 10:00 - Medications Medications: Current Medications Acetaminophen (Tylenol 325mg Tab) 650 mg PO Q6 PRN PRN Reason: Fever >100.4 F Al Hydrox/Mg Hydrox/Simethicone (Maalox Plus 30 Ml) 30 ml PO Q6 PRN PRN Reason: Indigestion / Heartburn Allopurinol (Zyloprim) 100 mg PO DAILY [facility] Last Admin: 10/29/18 09:26 Dose: 100 mg Amantadine HCl (Amantadine 100 Mg Cap) 100 mg PO BID [facility] Last Admin: 10/29/18 09:26 Dose: 100 mg Atorvastatin Calcium (Lipitor) 10 mg PO HS [facility] Last Admin: 10/28/18 21:16 Dose: 10 mg Carbidopa/Levodopa (Sinemet) 1 tab PO TID@0700,1200,1600 [facility] Last Admin: 10/29/18 06:03 Dose: 1 tab Docusate Sodium (Colace) 100 mg PO BID [facility] Last Admin: 10/29/18 09:26 Dose: 100 mg Glipizide (Glucotrol Xl) 10 mg PO DAILY [facility] Last Admin: 10/29/18 09:26 Dose: 10 mg Home Med (Patient's Own Medication) 1 unit PO DAILY [facility] Last Admin: 12/05/18 09:28 Dose: 1 unit Hydrochlorothiazide (Microzide) 12.5 mg PO DAILY@1300 [facility] Last Admin: 10/28/18 12:48 Dose: Not Given Insulin Human Lispro (Humalog) 0 units SC [facility]; Protocol Last Admin: 10/29/18 06:49 Dose: Not Given Lactulose (Enulose) 20 gm PO DAILY PRN PRN Reason: Constipation Last Admin: 10/22/18 16:51 Dose: 20 gm Metoprolol Succinate (Toprol Xl) 50 mg PO [facility] Last Admin: 10/28/18 21:16 Dose: 50 mg Mirtazapine (Remeron) 7.5 mg PO [facility] Last Admin: 10/28/18 21:16 Dose: 7.5 mg Modafinil (Provigil) 100 mg PO DAILY [facility] Last Admin: 10/29/18 09:30 Dose: 100 mg Pantoprazole Sodium (Protonix Ec Tab) 40 mg PO DAILY [facility] Last Admin: 10/29/18 09:26 Dose: 40 mg Pioglitazone HCl (Actos) 30 mg PO DAILY [facility] Last Admin: 10/29/18 09:26 Dose: 30 mg - Labs Labs: 10/12/18 06:20 10/18/18 05:30 - Constitutional Appears: Well, Non-toxic, No Acute Distress - Head Exam Head Exam: ATRAUMATIC, NORMAL INSPECTION, NORMOCEPHALIC - Eye Exam Eye Exam: EOMI, Normal appearance, PERRL Pupil Exam: NORMAL ACCOMODATION, PERRL - ENT Exam ENT Exam: Mucous Membranes Moist - Neck Exam Neck Exam: Full ROM - Respiratory Exam Respiratory Exam: NORMAL BREATHING PATTERN - Extremities Exam Extremities Exam: Normal Inspection - Neurological Exam Neurological Exam: Alert, Awake, CN II-XII Intact, Oriented x3 Neuro motor strength exam: Left Upper Extremity: 4, Right Upper Extremity: 4, Left Lower Extremity: 4, Right Lower Extremity: 4 Additional comments: speech clear and fluid. Strength to BUE and BLE 4/4 today; transformation architect 5/5 b/l Sensation equal and intact b/l. Reflexes brisk b/l. Able to do finger to nose test; no dysmetria Visual rutledge intact. No tremors; no clonus - Psychiatric Exam Psychiatric exam: Normal Affect, Normal Mood - Skin Skin Exam: Normal Color Assessment and Plan (1) CVA (cerebral vascular accident) Assessment & Plan: Imaging: -CT Head (10/25/18): No significant interval change. -CT Head without contrast (10/23/18): Interval mild increase in the size of the surrounding edema around the parenchymal hemorrhage/hemorrhagic conversion of left [employer] infarction. Otherwise no significant interval changes noted since the prior study. Stable parenchymal hemorrhage surrounding with edema at the posterior left parietal occipital lobe again noted. Foci of encephalomalacia at the left frontal lobe and right cerebellum. -CT Head without contrast (10/20/18): Prior site of hemorrhagic conversion at the left [employer] ischemic infarct is suspicious for new interval hemorrhage at this time with no signal interval change in overall mass effect currently. Follow-up head CT advised. Stable age related neuro degenerative findings. -EEG read as neg per Dr. Glover -Mr. Richard today continued to be alert and awake. He was able to answer all of my questions appropriately today and follow all commands. -Dizziness ealier this week was likely due to orthostatic hypotension. -Monitor orthostatics prn dizziness -Continue Sinemet started 10/23/18. -Continue Provigil. -Consider holding or discontinuing Remeron if pt remains drowsy during the day. -Continue PT/OT; notes reviewed. -Please call neuro team with any acute changes in patient's condition. -We recommend restarting ASA 81 mg PO daily. Continue this same regimen at [facility]. If any acute changes in pt condition, attending at [facility] to be notified immediately. I spoke to pt's and daughter at length regarding signs/symptoms of stroke and changes in mental status. We also discussed restarting ASA today and that he should be monitored at [facility] for any possibility of re-bleed or worsening in cerebral hemorrhage. I have also notified Dr. Godwin [place] of this, as he will be following the pt at [facility]. We will sign off at this time. Please reconsult prior to d/c prn. Case discussed with Dr. Meyer. Status: Acute
--- NOTE | 2018-10-29 17:39 | CP.PCM.PN ---
Subjective - Date & Time of Evaluation Date of Evaluation: 10/29/18 Time of Evaluation: 17:37 - Subjective Subjective: Patient seen in the room family just left he is awake and doing ok today discharge was delayed NAD continue current care Objective - Vital Signs/Intake and Output Vital Signs (last 24 hours): Temp Pulse Resp BP Pulse Ox 97.9 F 74 18 98/75 L 97 10/29/18 10:00 10/29/18 14:01 10/29/18 10:00 10/29/18 12:35 10/29/18 10:00 - Medications Medications: Current Medications Acetaminophen (Tylenol 325mg Tab) 650 mg PO Q6 PRN PRN Reason: Fever >100.4 F Al Hydrox/Mg Hydrox/Simethicone (Maalox Plus 30 Ml) 30 ml PO Q6 PRN PRN Reason: Indigestion / Heartburn Allopurinol (Zyloprim) 100 mg PO DAILY [facility] Last Admin: 10/29/18 09:26 Dose: 100 mg Amantadine HCl (Amantadine 100 Mg Cap) 100 mg PO BID [facility] Last Admin: 10/29/18 16:57 Dose: 100 mg Aspirin (Ecotrin) 81 mg PO DAILY [facility] Last Admin: 10/29/18 14:04 Dose: 81 mg Atorvastatin Calcium (Lipitor) 10 mg PO HS [facility] Last Admin: 10/28/18 21:16 Dose: 10 mg Carbidopa/Levodopa (Sinemet) 1 tab PO TID@0700,1200,1600 [facility] Last Admin: 10/29/18 16:59 Dose: 1 tab Docusate Sodium (Colace) 100 mg PO BID [facility] Last Admin: 10/29/18 16:58 Dose: 100 mg Glipizide (Glucotrol Xl) 10 mg PO DAILY [facility] Last Admin: 10/29/18 09:26 Dose: 10 mg Home Med (Patient's Own Medication) 1 unit PO DAILY [facility] Last Admin: 10/29/18 09:28 Dose: 1 unit Hydrochlorothiazide (Microzide) 12.5 mg PO DAILY@1300 [facility] Last Admin: 10/29/18 12:28 Dose: Not Given Insulin Human Lispro (Humalog) 0 units [facility]; Protocol Last Admin: 10/29/18 16:41 Dose: Not Given Lactulose (Enulose) 20 gm PO DAILY PRN PRN Reason: Constipation Last Admin: 10/22/18 16:51 Dose: 20 gm Metoprolol Succinate (Toprol Xl) 50 mg PO [facility] Last Admin: 10/28/18 21:16 Dose: 50 mg Mirtazapine (Remeron) 7.5 mg PO [facility] Last Admin: 10/28/18 21:16 Dose: 7.5 mg Modafinil (Provigil) 100 mg PO DAILY [facility] Last Admin: 10/29/18 09:30 Dose: 100 mg Pantoprazole Sodium (Protonix Ec Tab) 40 mg PO DAILY [facility] Last Admin: 10/29/18 09:26 Dose: 40 mg Pioglitazone HCl (Actos) 30 mg PO DAILY [facility] Last Admin: 10/29/18 09:26 Dose: 30 mg - Labs Labs: 10/12/18 06:20 10/18/18 05:30
[2018-10-29] MEDS: Metoprolol Succinate 50 mg XL Tab PO SCH (21:25)
[2018-10-30] MEDS: Insulin Lispro (humaLOG) 100 Units/ml Inj SC SCH ×2 (07:45→12:06)
[2018-10-30 08:32] VITALS: PULSE 69; RESP 19; TEMP 97.5
[2018-10-30] MEDS: GlipiZIDE 10 mg SR Tab PO SCH (08:49)
[2018-10-30] MEDS: CENTRUM SILVER MULTIVITAMIN PO SCH (08:49)
[2018-10-30] MEDS: Pantoprazole 40 mg EC Tab PO SCH (08:50)
[2018-10-30 09:30] VITALS: BP 110/62
--- NOTE | 2018-10-30 11:37 | CP.PCM.DIS ---
Provider - Provider Date of Admission: 10/11/18 18:57 Attending physician: Yong Watts MD Consults: 10/11/18 20:12 Neurology Consult Routine Comment: Consulting Provider: Carlyle Meyer Consulting Physician: Carlyle Meyer Reason for Consult: ischemic stroke with hemorrhagic conversion 10/11/18 20:14 Physiatry Consult Routine Comment: Consulting Provider: Tawanda Rodriguez Consulting Physician: Tawanda Rodriguez Reason for Consult: CVA 10/13/18 08:30 Case Management Referral Routine Comment: Physician Instructions: Reason For Exam: for discharge planning Reason for Referral: Discharge Planning 10/20/18 15:36 Psychiatry Consult Routine Comment: Consulting Provider: Catarina Baker Consulting Physician: Catarina Baker Reason for Consult: depression Time Spent in preparation of Discharge (in minutes): 25 Diagnosis - Discharge Diagnosis (1) CVA (cerebral vascular accident) Status: Acute Priority: High Comment: Left Posterior Cerebral Artery Stroke with hemorrhagic conversion. continue PT/OT/ST in [facility] continue hold on ASA (2) Depression Status: Acute Comment: continue Remeron (3) Afib Status: Chronic Comment: rate controlled. on Metoprolol (4) HTN (hypertension) Status: Chronic Comment: BP stable. continue Metoprolol, Losartan and HCTZ (5) DM2 (diabetes mellitus, type 2) Status: Chronic Comment: BS controlled. continue Glipizide SR and Pioglitazone (6) Gout Status: Chronic Comment: continue Allopurinol Hospital Course - Lab Results Lab Results: Most Recent Lab Values WBC 7.9 K/uL (4.8-10.8) 10/12/18 06:20 RBC 4.84 Mil/uL (4.40-5.90) 10/12/18 06:20 Hgb 14.8 g/dL (12.0-18.0) 10/12/18 06:20 Hct 44.0 % (35.0-51.0) 10/12/18 06:20 MCV 90.9 fl (80.0-94.0) 10/12/18 06:20 MCH 30.6 pg (27.0-31.0) 10/12/18 06:20 MCHC 33.7 g/dL (33.0-37.0) 10/12/18 06:20 RDW 13.9 % (11.5-14.5) 10/12/18 06:20 Plt Count 235 K/uL (130-400) 10/12/18 06:20 MPV 8.0 fl (7.2-11.7) 10/12/18 06:20 Neut % (Auto) 70.3 % (50.0-75.0) 10/12/18 06:20 Lymph % (Auto) 15.6 % (20.0-40.0) L 10/12/18 06:20 [place] % (Auto) 11.9 % (0.0-10.0) H 10/12/18 06:20 Eos % (Auto) 1.3 % (0.0-4.0) 10/12/18 06:20 Baso % (Auto) 0.9 % (0.0-2.0) 10/12/18 06:20 Neut # (Auto) 5.6 K/uL (1.8-7.0) 10/12/18 06:20 Lymph # (Auto) 1.2 K/uL (1.0-4.3) 10/12/18 06:20 [place] # (Auto) 0.9 K/uL (0.0-0.8) H 10/12/18 06:20 Eos # (Auto) 0.1 K/uL (0.0-0.7) 10/12/18 06:20 Baso # (Auto) 0.1 K/uL (0.0-0.2) 10/12/18 06:20 Sodium 136 mmol/l (132-148) 10/18/18 05:30 Potassium 3.7 MMOL/L (3.6-5.0) 10/18/18 05:30 Chloride 98 mmol/L (98-107) 10/18/18 05:30 Carbon Dioxide 28 mmol/L (22-30) 10/18/18 05:30 Anion Gap 14 (10-20) 10/18/18 05:30 BUN 26 mg/dl (9-20) H 10/18/18 05:30 Creatinine 1.3 mg/dl (0.8-1.5) 10/18/18 05:30 Est GFR ( Amer) > 60 10/18/18 05:30 Est GFR (Non-Af Amer) 54 10/18/18 05:30 POC Glucose (mg/dL) 83 mg/dL (65-110) 10/30/18 07:20 Random Glucose 157 mg/dL (75-110) H 10/18/18 05:30 Calcium 8.8 mg/dL (8.4-10.2) 10/18/18 05:30 - Hospital Course Hospital Course: 77 yo male with history of HTN, DM2 and HLD with acute CVA transferred from [facility] to [facility] for continuation of therapy and management. CT of head on 10/11 showed left posterior cerebral artery infarct with hemorrhagic conversion and mass effect. Follow up CT scan was read as stable without further changes. Patient did well in Acute Rehab but would need further therapy in [facility]). Discharge Exam - Head Exam Head Exam: ATRAUMATIC, NORMAL INSPECTION, NORMOCEPHALIC - Eye Exam Eye Exam: absent: Scleral icterus - ENT Exam ENT Exam: Mucous Membranes Moist - Respiratory Exam Respiratory Exam: absent: Rales, Rhonchi, Wheezes, Respiratory Distress - Cardiovascular Exam Cardiovascular Exam: REGULAR RHYTHM, +S1, +S2 - GI/Abdominal Exam GI & Abdominal Exam: Soft. absent: Tenderness - Rectal Exam Rectal Exam: Deferred - Neurological Exam Neurological exam: Alert, Oriented x3 - Psychiatric Exam Psychiatric exam: Depressed, Flat Affect - Skin Skin Exam: Dry, Intact Discharge Plan - Follow Up Plan Condition: GOOD Disposition: HOME/ ROUTINE
== END 2018-10-30 13:30 | disposition home or self-care (01) | DRG 57 ==
LOC: H.ERHOLD 10-11 18:57
PROVIDERS: ADMIT Hospitalist; ATTEND Hospitalist
PROC: F08Z3FZ Feeding/Eating Treatment using Assistive, Adaptive, Supportive or Protective Equipment (ICD-10-PCS; principal; 2018-10-11)
PROC: F08Z2FZ Grooming/Personal Hygiene Treatment using Assistive, Adaptive, Supportive or Protective Equipment (ICD-10-PCS; 2018-10-11)
PROC: F08Z1FZ Dressing Techniques Treatment using Assistive, Adaptive, Supportive or Protective Equipment (ICD-10-PCS; 2018-10-11)
PROC: F06Z6ZZ Communicative/Cognitive Integration Skills Treatment (ICD-10-PCS; 2018-10-11)
PROC: F07Z9FZ Gait Training/Functional Ambulation Treatment using Assistive, Adaptive, Supportive or Protective Equipment (ICD-10-PCS; 2018-10-11)
PROC: F07L6GZ Therapeutic Exercise Treatment of Musculoskeletal System - Lower Back / Lower Extremity using Aerobic Endurance and Conditioning Equipment (ICD-10-PCS; 2018-10-11)
DX: I69.398 Other sequelae of cerebral infarction (principal); H53.461 Homonymous bilateral field defects, right side; I48.2 Chronic atrial fibrillation; I10 Essential (primary) hypertension; E11.9 Type 2 diabetes mellitus without complications; E78.5 Hyperlipidemia, unspecified; M10.9 Gout, unspecified; Z74.01 Bed confinement status; I69.319 Unspecified symptoms and signs involving cognitive functions following cerebral infarction; F01.50 Vascular dementia, unspecified severity, without behavioral disturbance, psychotic disturbance, mood disturbance, and anxiety; E78.00 Pure hypercholesterolemia, unspecified; F43.21 Adjustment disorder with depressed mood; I95.1 Orthostatic hypotension; G93.89 Other specified disorders of brain; I69.10 Unspecified sequelae of nontraumatic intracerebral hemorrhage